=== PATIENT | male | born 1955 | race African-American/Black ===

== ENCOUNTER 2018-06-25 10:49 | Inpatient (IN) | payer OTHER ==
[2018-06-25 12:03] VITALS: BMI 22.4
--- NOTE | 2018-06-25 16:49 | HP ---
"COWS - Scale Resting Pulse: 2= ID [id number] Sweatin=Flushed/Facial Moisture Restless Observation: 1= Difficult to Sit Still Pupil Size: 1= Pupils >than Normal (Pupils at 3 mm) Bone or Joint Aches: 0= None Runny Nose/ Eye Tearin= Runny Nose/Eyes GI Upset > 30mins: 0= None Tremor Observation: 2= Slight Tremor Visible Yawning Observation: 0= None Anxiety or Irritability: 2=Irritable/Anxious Goose Flesh Skin: 0=Smooth Skin COWS Score: 12 CIWA Score - CIWA Score Nausea/Vomitin-No Nausea/No Vomiting Muscle Tremors: 4-Moderate,w/Arms Extend Anxiety: 1-Mildly Anxious Agitation: 4-Moderately Restless Paroxysmal Sweats: 1-Minimal Palms Moist (Facial perspiration) Orientation: 0-Oriented Tacttile Disturbances: 0-None Auditory Disturbances: 0-None Visual Disturbances: 0-None Headache: 0-None Present CIWA-Ar Total Score: 10 Admission ROS S - HPI Chief Complaint: States here for alcohol and heroin withdrawal. Allergies/Adverse Reactions: Allergies Allergy/AdvReac Type Severity Reaction Status Date / Time No Known Allergies Allergy Verified 06/25/18 20:17 History of Present Illness: Alcohol use since age 18. Heavy use since for past 30 years. Cocaine use since age 28. States now only take 1-2x/week. Heroin use started at age 61. Stopped heroin use 4 days ago. Denies hx seizures or blackouts. Longest length of sobriety when not in treatment is 2 days. Hx: Having SOB and using an asthma pump, DM, Elevated cholesterol, eye problems - taking eye drops, difficulty w/ balance r/t increased alcohol intake. ABBIE 0.030 Search Terms: Holger Keys, 1955 Search Date: 06/25/2018 06:13:12 PM The Drug Utilization Report below displays all of the controlled substance prescriptions, if any, that your patient has filled in the last twelve months. The information displayed on this report is compiled from pharmacy submissions to the Department, and accurately reflects the information as submitted by the pharmacies. This report was requested by: Rashida Lopez | Reference #: [id number] There are no results for the search terms that you entered. Exam Limitations: No Limitations - Ebola screening Have you traveled outside of the country in the last 21 days: No Have you had contact with anyone from an Ebola affected area: No Have you been sick,other than usual withdrawal symptoms: No Do you have a fever: No - Review of Systems Constitutional: Changes in sleep (Difficulty staying asleep) EENT: reports: Blurred Vision (Need glasses.), Hearing Loss (Hard of hearing. Has hearing aids but has lost them.), Other (Increased in pressure back of (L) eye and started on eye drops.) Respiratory: reports: Shortness of Breath (Seen by 1 week ago by PCP, Kishan Smyth MD, and started on albuterol inhalers) Cardiac: reports: No Symptoms Reported, Other (Denies all cardiac hx or symptoms. Denies HTN) GI: reports: No Symptoms Reported : reports: No Symptoms Reported Musculoskeletal: reports: No Symptoms Reported Integumentary: reports: No Symptoms Reported Neuro: reports: Paresthesia (Numbness and tingling in fingers for for approx 4 years.), Tremors Endocrine: reports: Increased Thirst Hematology: reports: No Symptoms Reported Psychiatric: reports: Judgement Intact, Agitated, Anxious, Depressed (Denies thoughts of harming self or others.) Patient History - Patient Medical History Hx Anemia: No Hx Asthma: No Hx Chronic Obstructive Pulmonary Disease (COPD): No Hx Cancer: No Hx Cardiac Disorders: No Hx Congestive Heart Failure: No Hx Hypertension: No Hx Hypercholesterolemia: Yes Hx Pacemaker: No HX Cerebrovascular Accident: No Hx Seizures: No Hx Dementia: No Hx Diabetes: Yes (TypeII) Hx Gastrointestinal Disorders: No Hx Liver Disease: No Hx Genitourinary Disorders: No Hx Sexually Transmitted Disorders: No Hx Renal Disease (ESRD): No Hx Thyroid Disease: No Hx Human Immunodeficiency Virus (HIV): No Hx Hepatitis C: No Hx Depression: No Hx Suicide Attempt: No Hx Bipolar Disorder: No Hx Schizophrenia: No - Patient Surgical History Past Surgical History: No - PPD History Date: 05/20/18 - Smoking Cessation Smoking history: Current every day smoker Have you smoked in the past 12 months: Yes Aproximately how many cigarettes per day: 10 Hx Chewing Tobacco Use: No Initiated information on smoking cessation: Yes 'Breaking Loose' booklet given: 06/25/18 - Substance & Tx. History Hx Alcohol Use: Yes Hx Substance Use: Yes Substance Use Type: Alcohol, Cocaine, Heroin Hx Substance Use Treatment: Yes (detox) - Substances Abused Alcohol Route: Oral Frequency: Daily Amount used: 5/ 6CANS BEER Age of first use: 18 Date of Last Use: 06/25/18 Heroin Route: SNIFF Frequency: 3-6 times per week Amount used: 1 BAG Age of first use: 61 Date of Last Use: 06/21/18 (small amount) Cocaine Frequency: 1-2 times per week Amount used: 2 gms Age of first use: 28 Date of Last Use: 06/23/18 Admission Physical Exam [facility] - Vital Signs Vital Signs: Vital Signs - 24 hr 06/25/18 11:59 Temperature 98.2 F Pulse Rate 117 H Respiratory 19 Rate Blood Pressure 125/74 - Physical General Appearance: Yes: Appropriately Dressed, Mild Distress, Tremorous, Sweating, Anxious HEENTM: Yes: EOMI, Hearing grossly Normal, KELVIN (Pupils at 3 mm) Respiratory: Yes: Lungs Clear, Normal Breath Sounds Neck: Yes: No masses,lesions,Nodules, Supple Breast: Yes: Breast Exam Deferred Cardiology: Yes: Regular Rhythm, S1, S2, Tachycardia Abdominal: Yes: Non Tender, Flat, Soft, Increased Bowel Sounds Genitourinary: Yes: Within Normal Limits Back: Yes: Normal Inspection Extremities: Yes: Normal Capillary Refill, Normal Range of Motion (Some crepitus in knees.), Non-Tender, Tremors (of hands when arms outstretched) Neurological: Yes: band builder II-XII NML intact, Fully Oriented, Alert, Motor Strength 5/5, Normal Mood/Affect, Normal Response Integumentary: Yes: Normal Color, Dry, Warm Lymphatic: Yes: Within Normal Limits - Diagnostic (1) Alcohol dependence with withdrawal Current Visit: Yes Status: Acute Qualifiers: Complication of substance-induced condition: uncomplicated Qualified Code(s ): F10.230 - Alcohol dependence with withdrawal, uncomplicated (2) Cocaine dependence Current Visit: Yes Status: Chronic Qualifiers: Substance use status: uncomplicated Qualified Code(s): F14.20 - Cocaine dependence, uncomplicated (3) Nicotine dependence Current Visit: Yes Status: Chronic Qualifiers: Nicotine product type: cigarettes Substance use status: uncomplicated Qualified Code(s): F17.210 - Nicotine dependence, cigarettes, uncomplicated (4) Diabetes mellitus treated with oral medication Current Visit: Yes Status: Chronic (5) Hyperlipidemia Current Visit: Yes Status: Chronic Qualifiers: Hyperlipidemia type: unspecified Qualified Code(s): E78.5 - Hyperlipidemia , unspecified (6) Unspecified glaucoma Current Visit: Yes Status: Chronic Qualifiers: Glaucoma type: unspecified Laterality: unspecified laterality Qualified Code(s): H40.9 - Unspecified glaucoma (7) OMAHA (hard of hearing) Current Visit: Yes Status: Chronic Qualifiers: Hearing loss type: unspecified Laterality: unspecified laterality Qualified Code(s): H91.90 - Unspecified hearing loss, unspecified ear (8) Heroin use disorder, moderate, in early remission Current Visit: Yes Status: Acute Cleared for Admission S - Detox or Rehab [facility] Level of Care: Medically Managed Detox Regimen/Protocol: Librium [facility] Breath Alcohol Content Breath Alcohol Content: 0.030 Urine Drug Screen - Results Drug Screen Negative: No Urine Drug Screen Results: CANDE-Cocaine"
[2018-06-25] MEDS ORDERED: IBUPROFEN 400 MG TABLET (FP) PO PRN (17:24)
[2018-06-25] MEDS ORDERED: P-EPHED 60MG/TRIPROLIDI 2.5MG TABLET PO PRN (17:24)
[2018-06-25] MEDS ORDERED: MENTHOL/PHENOL 1 EACH UD MM PRN (17:24)
[2018-06-25] MEDS ORDERED: MAGNESIUM HYDROX 2400MG/30ML ORAL SUSPENSION 30 ML CUP PO PRN (17:24)
[2018-06-25] MEDS ORDERED: LOPERAMIDE HCL 2 MG CAPSULE PO PRN (17:24)
[2018-06-25] MEDS ORDERED: MAGNESIUM CITRATE 300 ML BOTTLE PO PRN (17:24)
[2018-06-25] MEDS ORDERED: guaiFENesin/D-METHORPHAN HB 10 ML UNIT-DOSE CUPS PO PRN (17:24)
[2018-06-25] MEDS ORDERED: NICOTINE POLACRILEX 2 MG GUM BC PRN (17:24)
[2018-06-25] MEDS ORDERED: ACETAMINOPHEN 325 MG TABLET (FP) PO PRN (17:24)
[2018-06-25] MEDS ORDERED: METHADONE HCL 10 MG TABLET PO ONE (18:30)
[2018-06-25] MEDS: THIAMINE HCL 100 MG TABLET (FP) PO SCH (21:46)
[2018-06-25] MEDS: ATORVASTATIN CA 20 MG TABLET (FP) PO SCH (21:46)
[2018-06-25] MEDS: MELATONIN 5 MG TABLETS PO PRN (21:47)
[2018-06-25] MEDS: TIMOLOL 0.5% OPHTHALMIC SOL 5 ML BOTTLE OU SCH (21:48)
[2018-06-25] MEDS: metFORMIN HCL 500 MG TABLET (FP) PO SCH (21:50)
[2018-06-25] MEDS: BRIMONIDINE TARTRATE 0.1% OPHTHALMIC 5 ML BOTTLE OU SCH (21:51)
[2018-06-25] MEDS: chlordiazePOXIDE HCL 25 MG CAPSULE PO SCH (22:32)
[2018-06-26] MEDS: chlordiazePOXIDE HCL 25 MG CAPSULE PO SCH ×4 (05:54→22:25)
[2018-06-26] MEDS: metFORMIN HCL 500 MG TABLET (FP) PO SCH ×2 (07:56→17:51)
[2018-06-26] MEDS ORDERED: PATIENT'S OWN MEDICATION (NON-FORMULARY) (Meloxicam [Mobic] 15 MG) PO SCH (10:00)
[2018-06-26] MEDS: BRIMONIDINE TARTRATE 0.1% OPHTHALMIC 5 ML BOTTLE OU SCH ×2 (10:14→23:05)
[2018-06-26] MEDS: NICOTINE 14 MG/24 HOURS TOPICAL PATCH TD SCH (10:15)
[2018-06-26] MEDS: TIMOLOL 0.5% OPHTHALMIC SOL 5 ML BOTTLE OU SCH ×2 (10:15→23:05)
[2018-06-26] MEDS: PRENATAL VITAMINS W/ FOLIC ACID TABLET (FP) PO SCH (10:15)
[2018-06-26] MEDS: ASPIRIN 81 MG CHEWABLE TABLETS PO SCH (10:15)
[2018-06-26] MEDS ORDERED: METHADONE HCL 10 MG TABLET (FOR DETOX USE ONLY) PO ONE (10:29)
[2018-06-26 10:52] LABS: HEMATOCRIT 35.9 % (35.4-49); HEMOGLOBIN 11.9 GM/dL (11.7-16.9); MCH 35.9 pg (25.7-33.7); MCHC 33.1 g/dl (32.0-35.9); MEAN CELL VOLUME 108.4 fl (80-96); MEAN PLT VOLUME 8.7 fl (7.5-11.1); PLATELET COUNT 202 K/MM3 (134-434); RBC 3.31 M/mm3 (4.00-5.60); RDW 14.5 % (11.9-15.9); WHITE BLOOD COUNT 4.8 K/mm3 (4.0-10.0)
[2018-06-26 10:58] LABS: URINE APPEARANCE SLCLOUDY; URINE BILIRUBIN NEGATIVE (<2.0 mg/dL); URINE GLUCOSE (UA) 1+ (NEGATIVE); URINE KETONE NEGATIVE (NEGATIVE); URINE LEUK ESTERASE NEGATIVE (NEGATIVE); URINE NITRITE NEGATIVE (NEGATIVE); URINE PROTEIN NEGATIVE (NEGATIVE); URINE UROBILINOGEN NEGATIVE mg/dL (0.2-1.0)
[2018-06-26 11:11] LABS: URINE COLOR YELLOW
[2018-06-26 11:19] LABS: ALBUMIN 2.7 g/dl (3.4-5.0); ALK PHOS 72 U/L (45-117); ANION GAP 11 MMOL/L (8-16); BILIRUBIN,TOTAL 0.9 mg/dL (0.2-1); BLOOD UREA NITROGEN 17 mg/dL (7-18); CALCIUM 8.7 mg/dL (8.5-10.1); CHLORIDE 107 mmol/L (98-107); CO2 23 mmol/L (21-32); GLUCOSE,RANDOM 236 mg/dL (74-106); POTASSIUM 4.1 mmol/L (3.5-5.1); SGOT/AST 57 U/L (15-37); SGPT/ALT 50 U/L (13-61); SODIUM 141 mmol/L (136-145); TOT PROT 5.8 g/dl (6.4-8.2)
--- NOTE | 2018-06-26 11:27 | CONSULT ---
[facility] Psychiatric Consult - Data Date of interview: 06/26/18 Admission source: [facility] Identifying data: Readmission to [facility] for this 62 y/o AA male self- referred for detoxification treatment (alcohol,cocaine).Admitted to [address] [place] [address].Patient is ,a father of five,undomiciled,unemployed (disabled) and evasive on the issue of source of income. Substance Abuse History: Patient refuses to discuss this domain.mr bragg is irritable and uncooperative.Current [facility] report is utilized as source of information : Smoking history: Current every day smoker. Have you smoked in the past 12 months: Yes. Aproximately how many cigarettes per day: 10. Hx Chewing Tobacco Use: No. Initiated information on smoking cessation: Yes. ' Breaking Loose' booklet given: 06/25/18. - Substance & Tx. History. Hx Alcohol Use: Yes. Hx Substance Use: Yes. Substance Use Type: Alcohol, Cocaine , Heroin. Hx Substance Use Treatment: Yes (detox). - Substances Abused. Alcohol. Route: Oral. Frequency: Daily. Amount used: 5/ 6CANS BEER. Age of first use: 18. Date of Last Use: 06/25/18. Heroin. Route: SNIFF. Frequency: 3-6 times per week. Amount used: 1 BAG. Age of first use: 61. Date of Last Use: 06/21/18 (small amount). Cocaine. Frequency: 1-2 times per week. Amount used: 2 gms. Age of first use: 28. Date of Last Use: Medical History: Information is taken from chart : diabetes mellitus,bronchial asthma,hearing impediment,glaucoma,dyslipidemia and unsteady gait (patient is requesting cane for ambulation). Psychiatric History: Patient denies. Physical/Sexual Abuse/Trauma History: No information. Additional Comment: Urine Drug Screen Results: CANDE-Cocaine.Noted. Mental Status Exam - Mental Status Exam Alert and Oriented to: Time, Place, Person Cognitive Function: Grossly Intact Patient Appearance: Disheveled Mood: Angry, Hostile, Anxious, Irritable Affect: Mood Congruent Patient Behavior: Fatigued, Uncooperative Speech Pattern: Clear Voice Loudness: Normal Thought Process: Goal Oriented Thought Disorder: Not Present Hallucinations: Denies Suicidal Ideation: Denies Homicidal Ideation: Denies Insight/Judgement: Poor Sleep: Well Appetite: Good Gait/Station: Other (ambulates independently ; unsteady gait due to orthopedic issues ; cane requested) Psychiatric Findings - Problem List ([place] 1, 2,3) (1) Alcohol dependence with withdrawal Current Visit: Yes Status: Acute Qualifiers: Complication of substance-induced condition: uncomplicated Qualified Code(s ): F10.230 - Alcohol dependence with withdrawal, uncomplicated (2) Opioid dependence with withdrawal Current Visit: Yes Status: Acute (3) Cocaine dependence Current Visit: Yes Status: Acute Qualifiers: Substance use status: uncomplicated Qualified Code(s): F14.20 - Cocaine dependence, uncomplicated (4) Nicotine dependence Current Visit: Yes Status: Acute Qualifiers: Nicotine product type: cigarettes Substance use status: uncomplicated Qualified Code(s): F17.210 - Nicotine dependence, cigarettes, uncomplicated (5) Substance induced mood disorder Current Visit: Yes Status: Suspected - Initial Treatment Plan Initial Treatment Plan: Psychoeducation.Sleep hygiene.Detoxification in progress.Cane requested.Discussed with nursing staff.Support.Observation.
[2018-06-26] MEDS: MAG HYDROX/AL HYDROX/SIMETH 30 ML UNIT-DOSE CUP PO PRN ×2 (11:41→22:44)
--- NOTE | 2018-06-26 11:53 | PN ---
S CIWA - CIWA Score Nausea/Vomitin-No Nausea/No Vomiting Muscle Tremors: 3 Anxiety: 4-Mod. Anxious/Guarded Agitation: 4-Moderately Restless Paroxysmal Sweats: 1-Minimal Palms Moist Orientation: 0-Oriented Tacttile Disturbances: 0-None Auditory Disturbances: 0-None Visual Disturbances: 0-None Headache: 0-None Present CIWA-Ar Total Score: 12 BHS Progress Note (SOAP) Subjective: ANXIETY, SWEATS/CHILLS,INTERMITTENT SLEEP. Objective: 06/26/18 11:55 Vital Signs 06/26/18 06/26/18 06:08 09:21 Temperature 98.7 F 96.3 F L Pulse Rate 71 99 H Respiratory 18 18 Rate Blood Pressure 146/89 138/84 Laboratory Tests 06/25/18 06/25/18 06/26/18 17:50 21:22 05:53 WBC RBC Hgb Hct MCV MCH MCHC RDW Plt Count MPV Sodium Potassium Chloride Carbon Dioxide Anion Gap BUN Creatinine Creat Clearance w eGFR POC Glucometer 84 194 120 Random Glucose Calcium Total Bilirubin AST ALT Alkaline Phosphatase Total Protein Albumin Urine Color Urine Appearance Urine pH Ur Specific [place] Urine Protein Urine Glucose (UA) Urine Ketones Urine Blood Urine Nitrite Urine Bilirubin Urine Urobilinogen Ur Leukocyte Esterase 06/26/18 06/26/18 06/26/18 07:50 07:50 08:50 WBC 4.8 RBC 3.31 L Hgb 11.9 Hct 35.9 MCV 108.4 H MCH 35.9 H MCHC 33.1 RDW 14.5 D Plt Count 202 MPV 8.7 Sodium 141 Potassium 4.1 Chloride 107 Carbon Dioxide 23 Anion Gap 11 BUN 17 Creatinine 1.0 Creat Clearance w eGFR > 60 POC Glucometer Random Glucose 236 H Calcium 8.7 Total Bilirubin 0.9 AST 57 H ALT 50 Alkaline Phosphatase 72 Total Protein 5.8 L Albumin 2.7 L Urine Color Yellow Urine Appearance Slcloudy Urine pH 5.0 D Ur Specific [place] 1.013 Urine Protein Negative Urine Glucose (UA) 1+ H Urine Ketones Negative Urine Blood Negative Urine Nitrite Negative Urine Bilirubin Negative Urine Urobilinogen Negative Ur Leukocyte Esterase Negative 06/26/18 10:57 WBC RBC Hgb Hct MCV MCH MCHC RDW Plt Count MPV Sodium Potassium Chloride Carbon Dioxide Anion Gap BUN Creatinine Creat Clearance w eGFR POC Glucometer 154 Random Glucose Calcium Total Bilirubin AST ALT Alkaline Phosphatase Total Protein Albumin Urine Color Urine Appearance Urine pH Ur Specific [place] Urine Protein Urine Glucose (UA) Urine Ketones Urine Blood Urine Nitrite Urine Bilirubin Urine Urobilinogen Ur Leukocyte Esterase Assessment: 06/26/18 11:55 WITHDRAWAL SX Plan: CONTINUE DETOX
[2018-06-26] MEDS ORDERED: FLU VACCINE QUAD 60 MCG/0.5 ML (MDV 18-19) IM ONE (12:00)
--- NOTE | 2018-06-26 15:41 | EKG ---
Test Reason : Blood Pressure : / mmHG Vent. Rate : 086 BPM Atrial Rate : 086 BPM P-R Int : 126 ms QRS Dur : 072 ms QT Int : 362 ms P-R-T Axes : 075 051 062 degrees QTc Int : 433 ms SINUS RHYTHM WITH PREMATURE ATRIAL COMPLEXES OTHERWISE NORMAL ECG WHEN COMPARED WITH ECG OF 18-MAY-2018 20:14, NO SIGNIFICANT CHANGE WAS FOUND Confirmed by MD Wojciech, Holger ([id number]) on 06/26/2018 3:41:21 PM Referred By: Confirmed By:Holger Jeffrey MD
[2018-06-26] MEDS: ATORVASTATIN CA 20 MG TABLET (FP) PO SCH (22:25)
[2018-06-26] MEDS: THIAMINE HCL 100 MG TABLET (FP) PO SCH (22:25)
[2018-06-26] MEDS: MELATONIN 5 MG TABLETS PO PRN (22:26)
[2018-06-27] MEDS: chlordiazePOXIDE HCL 25 MG CAPSULE PO SCH ×3 (05:34→17:05)
[2018-06-27] MEDS: metFORMIN HCL 500 MG TABLET (FP) PO SCH ×2 (07:03→17:06)
[2018-06-27] MEDS ORDERED: ALBUTEROL SO4 2.5/IPRATROPIUM 0.5 INH SOL 3 ML VIAL.NEB. NEB PRN (08:09)
[2018-06-27] MEDS ORDERED: METHADONE HCL 10 MG TABLET PO ONE (10:00)
[2018-06-27] MEDS: NICOTINE 14 MG/24 HOURS TOPICAL PATCH TD SCH (10:53)
[2018-06-27] MEDS: TIMOLOL 0.5% OPHTHALMIC SOL 5 ML BOTTLE OU SCH ×2 (10:53→21:51)
[2018-06-27] MEDS: PRENATAL VITAMINS W/ FOLIC ACID TABLET (FP) PO SCH (10:53)
[2018-06-27] MEDS: ASPIRIN 81 MG CHEWABLE TABLETS PO SCH (10:53)
[2018-06-27] MEDS: BRIMONIDINE TARTRATE 0.1% OPHTHALMIC 5 ML BOTTLE OU SCH ×2 (10:54→21:51)
[2018-06-27] MEDS: ALBUTEROL SO4 8 GM HFA INHALER IH PRN ×2 (10:57→20:09)
[2018-06-27] MEDS: hydrOXYzine PAMOATE 25 MG CAPSULE (FP) PO PRN ×2 (11:36→17:06)
[2018-06-27] MEDS: MAG HYDROX/AL HYDROX/SIMETH 30 ML UNIT-DOSE CUP PO PRN (11:50)
--- NOTE | 2018-06-27 16:34 | PN ---
S CIWA - CIWA Score Nausea/Vomitin Muscle Tremors: 3 Anxiety: 3 Agitation: 3 Paroxysmal Sweats: 3 Orientation: 0-Oriented Tacttile Disturbances: 1-Very Mild Itch/Numbness Auditory Disturbances: 0-None Visual Disturbances: 0-None Headache: 1-Very Mild CIWA-Ar Total Score: 16 S Progress Note (SOAP) Subjective: Interrupted sleep Objective: 06/27/18 16:32 Last Vital Signs Temp Pulse Resp BP Pulse Ox 97.1 F L 94 H 20 156/84 06/27/18 13:43 06/27/18 13:43 06/27/18 13:43 06/27/18 13:43 Laboratory Tests 06/25/18 06/25/18 06/26/18 17:50 21:22 05:53 WBC RBC Hgb Hct MCV MCH MCHC RDW Plt Count MPV Sodium Potassium Chloride Carbon Dioxide Anion Gap BUN Creatinine Creat Clearance w eGFR POC Glucometer 84 194 120 Random Glucose Calcium Total Bilirubin AST ALT Alkaline Phosphatase Total Protein Albumin Urine Color Urine Appearance Urine pH Ur Specific [place] Urine Protein Urine Glucose (UA) Urine Ketones Urine Blood Urine Nitrite Urine Bilirubin Urine Urobilinogen Ur Leukocyte Esterase RPR Titer HIV 1&2 Antibody Screen HIV P24 Antigen 06/26/18 06/26/18 06/26/18 07:50 07:50 07:50 WBC 4.8 RBC 3.31 L Hgb 11.9 Hct 35.9 MCV 108.4 H MCH 35.9 H MCHC 33.1 RDW 14.5 D Plt Count 202 MPV 8.7 Sodium 141 Potassium 4.1 Chloride 107 Carbon Dioxide 23 Anion Gap 11 BUN 17 Creatinine 1.0 Creat Clearance w eGFR > 60 POC Glucometer Random Glucose 236 H Calcium 8.7 Total Bilirubin 0.9 AST 57 H ALT 50 Alkaline Phosphatase 72 Total Protein 5.8 L Albumin 2.7 L Urine Color Urine Appearance Urine pH Ur Specific [place] Urine Protein Urine Glucose (UA) Urine Ketones Urine Blood Urine Nitrite Urine Bilirubin Urine Urobilinogen Ur Leukocyte Esterase RPR Titer Nonreactive HIV 1&2 Antibody Screen HIV P24 Antigen 06/26/18 06/26/18 06/26/18 08:50 10:57 16:22 WBC RBC Hgb Hct MCV MCH MCHC RDW Plt Count MPV Sodium Potassium Chloride Carbon Dioxide Anion Gap BUN Creatinine Creat Clearance w eGFR POC Glucometer 154 181 Random Glucose Calcium Total Bilirubin AST ALT Alkaline Phosphatase Total Protein Albumin Urine Color Yellow Urine Appearance Slcloudy Urine pH 5.0 D Ur Specific [place] 1.013 Urine Protein Negative Urine Glucose (UA) 1+ H Urine Ketones Negative Urine Blood Negative Urine Nitrite Negative Urine Bilirubin Negative Urine Urobilinogen Negative Ur Leukocyte Esterase Negative RPR Titer HIV 1&2 Antibody Screen HIV P24 Antigen 06/26/18 06/27/18 06/27/18 21:05 05:32 06:00 WBC RBC Hgb Hct MCV MCH MCHC RDW Plt Count MPV Sodium Potassium Chloride Carbon Dioxide Anion Gap BUN Creatinine Creat Clearance w eGFR POC Glucometer 181 114 Random Glucose Calcium Total Bilirubin AST ALT Alkaline Phosphatase Total Protein Albumin Urine Color Urine Appearance Urine pH Ur Specific [place] Urine Protein Urine Glucose (UA) Urine Ketones Urine Blood Urine Nitrite Urine Bilirubin Urine Urobilinogen Ur Leukocyte Esterase RPR Titer HIV 1&2 Antibody Screen Negative HIV P24 Antigen Negative Labs reviewed: elevated glucose Assessment: 06/27/18 16:32 Withdrawal symptoms Noted with hyperglycemia r/t DMT2 Plan: Continue detox DMT2 with hyperglycemia: continue present regimen, continue to monitor, Encouraged PO water hydration
[2018-06-27] MEDS: chlordiazePOXIDE HCL 25 MG CAPSULE PO PRN (20:58)
[2018-06-27] MEDS: ATORVASTATIN CA 20 MG TABLET (FP) PO SCH (21:47)
[2018-06-27] MEDS: THIAMINE HCL 100 MG TABLET (FP) PO SCH (21:47)
[2018-06-27] MEDS: MELATONIN 5 MG TABLETS PO PRN (21:48)
[2018-06-27] MEDS: chlordiazePOXIDE 5 MG CAPSULE PO SCH (22:00)
[2018-06-28] MEDS: chlordiazePOXIDE 5 MG CAPSULE PO SCH ×3 (06:35→17:49)
[2018-06-28] MEDS: metFORMIN HCL 500 MG TABLET (FP) PO SCH ×2 (06:36→17:49)
[2018-06-28] MEDS ORDERED: METHADONE HCL 10 MG TABLET PO ONE (10:00)
[2018-06-28] MEDS: PRENATAL VITAMINS W/ FOLIC ACID TABLET (FP) PO SCH (10:31)
[2018-06-28] MEDS: BRIMONIDINE TARTRATE 0.1% OPHTHALMIC 5 ML BOTTLE OU SCH ×2 (10:31→22:14)
[2018-06-28] MEDS: TIMOLOL 0.5% OPHTHALMIC SOL 5 ML BOTTLE OU SCH ×2 (10:31→22:14)
[2018-06-28] MEDS: ASPIRIN 81 MG CHEWABLE TABLETS PO SCH (10:31)
[2018-06-28] MEDS: NICOTINE 14 MG/24 HOURS TOPICAL PATCH TD SCH (10:31)
--- NOTE | 2018-06-28 11:57 | PN ---
Psychiatric Progress Note Vital Signs: Vital Signs Period Temp Pulse Resp BP Sys/Ba Pulse Ox Last 24 Hr 96.5 F-97.6 F 80-98 16-20 119-156/70-84 Date of Session: 06/28/18 Chief Complaint:: " I have a few questions about my discharge." Current Medications: Active Medications Generic Name Dose Route Start Last Admin Trade Name Freq PRN Reason Stop Dose Admin Acetaminophen 650 mg 06/25/18 17:24 06/26/18 17:51 Tylenol - PO 650 mg Q4H PRN Administration FEVER Al Hydroxide/Mg Hydroxide 30 ml 06/25/18 17:24 06/27/18 11:50 Mylanta Oral Suspension - PO 30 ml Q6H PRN Administration DYSPEPSIA Albuterol Sulfate 2 puff 06/27/18 08:48 06/27/18 20:09 Ventolin Hfa Inhaler - IH 2 puff Q4H PRN Administration SHORT OF BREATH/WHEEZING Albuterol/Ipratropium 1 amp 06/27/18 08:09 06/27/18 08:37 Duoneb - NEB 1 amp Q6H PRN Administration SHORTNESS OF BREATH Aspirin 81 mg 06/26/18 10:00 06/28/18 10:31 Asa - PO 81 mg DAILY REGINALD Administration Atorvastatin Calcium 20 mg 06/25/18 22:00 06/27/18 21:47 Lipitor - PO 20 mg HS REGINALD Administration Brimonidine Tartrate 1 drop 06/25/18 22:00 06/28/18 10:31 Alphagan P 0.1% - OU 1 drop BID REGINALD Administration Chlordiazepoxide HCl 15 mg 06/27/18 23:00 06/28/18 10:31 Librium - PO 06/28/18 17:01 15 mg U1H-GIM REGINALD Administration Chlordiazepoxide HCl 25 mg 06/25/18 17:24 06/27/18 20:58 Librium - PO 06/28/18 17:23 25 mg Q4H PRN Administration WITHDRAWAL(CONT SUBST) Chlordiazepoxide HCl 10 mg 06/28/18 23:00 Librium - PO 06/29/18 17:01 [id number] REGINALD Ergocalciferol 50,000 unit 06/29/18 10:00 Drisdol - PO Tu@1000 REGINALD Eucalyptus/Menthol/Phenol/Sorbitol 1 each 06/25/18 17:24 Cepastat Lozenge - MM Q4H PRN SORE THROAT Guaifenesin 10 ml 06/25/18 17:24 Robitussin Dm - PO Q6H PRN COUGH Hydroxyzine Pamoate 25 mg 06/25/18 21:31 06/27/18 17:06 Vistaril - PO 25 mg Q4H PRN Administration FOR ITCHING Ibuprofen 400 mg 06/25/18 17:24 Motrin - PO Q6H PRN PAIN LEVEL 4-6 Loperamide HCl 4 mg 06/25/18 17:24 Imodium - PO Q6H PRN DIARRHEA Magnesium Citrate 300 ml 06/25/18 17:24 Citroma - PO Q48H PRN CONSTIPATION Magnesium Hydroxide 30 ml 06/25/18 17:24 Milk Of Magnesia - PO DAILY PRN CONSTIPATION Melatonin 5 mg 06/25/18 22:00 06/27/18 21:48 Melatonin PO 5 mg HS PRN Administration INSOMNIA Metformin HCl 1,000 mg 06/25/18 18:30 06/28/18 06:36 Glucophage - PO 1,000 mg BIDAC REGINALD Administration Nicotine 14 mg 06/26/18 10:00 06/28/18 10:31 Nicoderm Patch - TD 14 mg DAILY REGINALD Administration Nicotine Polacrilex 2 mg 06/25/18 17:24 Nicorette Gum - BC Q2H PRN NICOTINE REPLACEMENT RX Multivit/Folic Acid/Iron 1 tab 06/26/18 10:00 06/28/18 10:31 Vitamins (Sjr) - PO 1 tab DAILY REGINALD Administration Pseudoephedrine/Triprolidine 1 combo 06/25/18 17:24 Actifed - PO TID PRN NASAL CONGESTION Thiamine HCl 100 mg 06/25/18 22:00 06/27/18 21:47 Vitamin B1 - PO 100 mg HS REGINALD Administration Timolol Maleate 1 drop 06/25/18 22:00 06/28/18 10:31 Timoptic 0.5% OU 1 drop BID REGINALD Administration Psychiatric Treatment Plan - Problem List (1) Alcohol dependence with withdrawal Current Visit: Yes Qualifiers: Complication of substance-induced condition: uncomplicated Qualified Code(s ): F10.230 - Alcohol dependence with withdrawal, uncomplicated (2) Opioid dependence with withdrawal Current Visit: Yes (3) Cocaine dependence Current Visit: Yes Qualifiers: Substance use status: uncomplicated Qualified Code(s): F14.20 - Cocaine dependence, uncomplicated (4) Nicotine dependence Current Visit: Yes Qualifiers: Nicotine product type: cigarettes Substance use status: in withdrawal Qualified Code(s): F17.213 - Nicotine dependence, cigarettes, with withdrawal (5) Substance induced mood disorder Current Visit: Yes
--- NOTE | 2018-06-28 12:34 | PN ---
S Progress Note (SOAP) Subjective: Interrupted sleep Objective: 06/28/18 12:32 Last Vital Signs Temp Pulse Resp BP Pulse Ox 97.3 F L 96 H 18 131/76 06/28/18 10:01 06/28/18 10:01 06/28/18 10:01 06/28/18 10:01 Laboratory Tests 06/25/18 06/25/18 06/26/18 17:50 21:22 05:53 WBC RBC Hgb Hct MCV MCH MCHC RDW Plt Count MPV Sodium Potassium Chloride Carbon Dioxide Anion Gap BUN Creatinine Creat Clearance w eGFR POC Glucometer 84 194 120 Random Glucose Calcium Total Bilirubin AST ALT Alkaline Phosphatase Total Protein Albumin Urine Color Urine Appearance Urine pH Ur Specific [place] Urine Protein Urine Glucose (UA) Urine Ketones Urine Blood Urine Nitrite Urine Bilirubin Urine Urobilinogen Ur Leukocyte Esterase RPR Titer HIV 1&2 Antibody Screen HIV P24 Antigen 06/26/18 06/26/18 06/26/18 07:50 07:50 07:50 WBC 4.8 RBC 3.31 L Hgb 11.9 Hct 35.9 MCV 108.4 H MCH 35.9 H MCHC 33.1 RDW 14.5 D Plt Count 202 MPV 8.7 Sodium 141 Potassium 4.1 Chloride 107 Carbon Dioxide 23 Anion Gap 11 BUN 17 Creatinine 1.0 Creat Clearance w eGFR > 60 POC Glucometer Random Glucose 236 H Calcium 8.7 Total Bilirubin 0.9 AST 57 H ALT 50 Alkaline Phosphatase 72 Total Protein 5.8 L Albumin 2.7 L Urine Color Urine Appearance Urine pH Ur Specific [place] Urine Protein Urine Glucose (UA) Urine Ketones Urine Blood Urine Nitrite Urine Bilirubin Urine Urobilinogen Ur Leukocyte Esterase RPR Titer Nonreactive HIV 1&2 Antibody Screen HIV P24 Antigen 06/26/18 06/26/18 06/26/18 08:50 10:57 16:22 WBC RBC Hgb Hct MCV MCH MCHC RDW Plt Count MPV Sodium Potassium Chloride Carbon Dioxide Anion Gap BUN Creatinine Creat Clearance w eGFR POC Glucometer 154 181 Random Glucose Calcium Total Bilirubin AST ALT Alkaline Phosphatase Total Protein Albumin Urine Color Yellow Urine Appearance Slcloudy Urine pH 5.0 D Ur Specific [place] 1.013 Urine Protein Negative Urine Glucose (UA) 1+ H Urine Ketones Negative Urine Blood Negative Urine Nitrite Negative Urine Bilirubin Negative Urine Urobilinogen Negative Ur Leukocyte Esterase Negative RPR Titer HIV 1&2 Antibody Screen HIV P24 Antigen 06/26/18 06/27/18 06/27/18 21:05 05:32 06:00 WBC RBC Hgb Hct MCV MCH MCHC RDW Plt Count MPV Sodium Potassium Chloride Carbon Dioxide Anion Gap BUN Creatinine Creat Clearance w eGFR POC Glucometer 181 114 Random Glucose Calcium Total Bilirubin AST ALT Alkaline Phosphatase Total Protein Albumin Urine Color Urine Appearance Urine pH Ur Specific [place] Urine Protein Urine Glucose (UA) Urine Ketones Urine Blood Urine Nitrite Urine Bilirubin Urine Urobilinogen Ur Leukocyte Esterase RPR Titer HIV 1&2 Antibody Screen Negative HIV P24 Antigen Negative 06/27/18 06/27/18 06/28/18 16:33 21:03 06:36 WBC RBC Hgb Hct MCV MCH MCHC RDW Plt Count MPV Sodium Potassium Chloride Carbon Dioxide Anion Gap BUN Creatinine Creat Clearance w eGFR POC Glucometer 135 212 164 Random Glucose Calcium Total Bilirubin AST ALT Alkaline Phosphatase Total Protein Albumin Urine Color Urine Appearance Urine pH Ur Specific [place] Urine Protein Urine Glucose (UA) Urine Ketones Urine Blood Urine Nitrite Urine Bilirubin Urine Urobilinogen Ur Leukocyte Esterase RPR Titer HIV 1&2 Antibody Screen HIV P24 Antigen Labs reviewed Assessment: 06/28/18 12:32 Withdrawal symptoms Plan: Continue detox Encouraged PO water hydration
[2018-06-28] MEDS: MAG HYDROX/AL HYDROX/SIMETH 30 ML UNIT-DOSE CUP PO PRN (12:35)
[2018-06-28] MEDS: chlordiazePOXIDE HCL 25 MG CAPSULE PO PRN (12:54)
[2018-06-28] MEDS: hydrOXYzine PAMOATE 25 MG CAPSULE (FP) PO PRN (14:17)
[2018-06-28] MEDS: ALBUTEROL SO4 8 GM HFA INHALER IH PRN (15:35)
[2018-06-28] MEDS: chlordiazePOXIDE HCL 10 MG CAPSULE PO SCH (22:13)
[2018-06-28] MEDS: ATORVASTATIN CA 20 MG TABLET (FP) PO SCH (22:13)
[2018-06-28] MEDS: THIAMINE HCL 100 MG TABLET (FP) PO SCH (22:13)
[2018-06-28] MEDS: MELATONIN 5 MG TABLETS PO PRN (22:15)
[2018-06-29] MEDS: chlordiazePOXIDE HCL 10 MG CAPSULE PO SCH (05:51)
[2018-06-29] MEDS: ALBUTEROL SO4 8 GM HFA INHALER IH PRN (06:38)
[2018-06-29] MEDS: metFORMIN HCL 500 MG TABLET (FP) PO SCH (06:38)
[2018-06-29 06:49] VITALS: BP 138/82; PULSE 91; TEMP 96.6
[2018-06-29] MEDS: PRENATAL VITAMINS W/ FOLIC ACID TABLET (FP) PO SCH (09:16)
[2018-06-29] MEDS: NICOTINE 14 MG/24 HOURS TOPICAL PATCH TD SCH (09:16)
[2018-06-29] MEDS: ASPIRIN 81 MG CHEWABLE TABLETS PO SCH (09:16)
[2018-06-29] MEDS ORDERED: ERGOCALCIFEROL (VITAMIN D2) 50,000 UNIT CAPSULE (FP) PO SCH (10:00)
--- NOTE | 2018-06-29 14:40 | DS ---
[facility] Detox Discharge Summary Admission Date: 06/25/18 Discharge Date: 06/29/18 - History Present History: Alcohol Dependence, Cocaine Dependence Pertinent Past History: Withdrawal symptoms Laboratory Tests 06/25/18 06/25/18 06/26/18 17:50 21:22 05:53 WBC RBC Hgb Hct MCV MCH MCHC RDW Plt Count MPV Sodium Potassium Chloride Carbon Dioxide Anion Gap BUN Creatinine Creat Clearance w eGFR POC Glucometer 84 194 120 Random Glucose Calcium Total Bilirubin AST ALT Alkaline Phosphatase Total Protein Albumin Urine Color Urine Appearance Urine pH Ur Specific [place] Urine Protein Urine Glucose (UA) Urine Ketones Urine Blood Urine Nitrite Urine Bilirubin Urine Urobilinogen Ur Leukocyte Esterase RPR Titer HIV 1&2 Antibody Screen HIV P24 Antigen 06/26/18 06/26/18 06/26/18 07:50 07:50 07:50 WBC 4.8 RBC 3.31 L Hgb 11.9 Hct 35.9 MCV 108.4 H MCH 35.9 H MCHC 33.1 RDW 14.5 D Plt Count 202 MPV 8.7 Sodium 141 Potassium 4.1 Chloride 107 Carbon Dioxide 23 Anion Gap 11 BUN 17 Creatinine 1.0 Creat Clearance w eGFR > 60 POC Glucometer Random Glucose 236 H Calcium 8.7 Total Bilirubin 0.9 AST 57 H ALT 50 Alkaline Phosphatase 72 Total Protein 5.8 L Albumin 2.7 L Urine Color Urine Appearance Urine pH Ur Specific [place] Urine Protein Urine Glucose (UA) Urine Ketones Urine Blood Urine Nitrite Urine Bilirubin Urine Urobilinogen Ur Leukocyte Esterase RPR Titer Nonreactive HIV 1&2 Antibody Screen HIV P24 Antigen 06/26/18 06/26/18 06/26/18 08:50 10:57 16:22 WBC RBC Hgb Hct MCV MCH MCHC RDW Plt Count MPV Sodium Potassium Chloride Carbon Dioxide Anion Gap BUN Creatinine Creat Clearance w eGFR POC Glucometer 154 181 Random Glucose Calcium Total Bilirubin AST ALT Alkaline Phosphatase Total Protein Albumin Urine Color Yellow Urine Appearance Slcloudy Urine pH 5.0 D Ur Specific [place] 1.013 Urine Protein Negative Urine Glucose (UA) 1+ H Urine Ketones Negative Urine Blood Negative Urine Nitrite Negative Urine Bilirubin Negative Urine Urobilinogen Negative Ur Leukocyte Esterase Negative RPR Titer HIV 1&2 Antibody Screen HIV P24 Antigen 06/26/18 06/27/18 06/27/18 21:05 05:32 06:00 WBC RBC Hgb Hct MCV MCH MCHC RDW Plt Count MPV Sodium Potassium Chloride Carbon Dioxide Anion Gap BUN Creatinine Creat Clearance w eGFR POC Glucometer 181 114 Random Glucose Calcium Total Bilirubin AST ALT Alkaline Phosphatase Total Protein Albumin Urine Color Urine Appearance Urine pH Ur Specific [place] Urine Protein Urine Glucose (UA) Urine Ketones Urine Blood Urine Nitrite Urine Bilirubin Urine Urobilinogen Ur Leukocyte Esterase RPR Titer HIV 1&2 Antibody Screen Negative HIV P24 Antigen Negative 06/27/18 06/27/18 06/28/18 16:33 21:03 06:36 WBC RBC Hgb Hct MCV MCH MCHC RDW Plt Count MPV Sodium Potassium Chloride Carbon Dioxide Anion Gap BUN Creatinine Creat Clearance w eGFR POC Glucometer 135 212 164 Random Glucose Calcium Total Bilirubin AST ALT Alkaline Phosphatase Total Protein Albumin Urine Color Urine Appearance Urine pH Ur Specific [place] Urine Protein Urine Glucose (UA) Urine Ketones Urine Blood Urine Nitrite Urine Bilirubin Urine Urobilinogen Ur Leukocyte Esterase RPR Titer HIV 1&2 Antibody Screen HIV P24 Antigen 06/28/18 06/29/18 16:26 05:53 WBC RBC Hgb Hct MCV MCH MCHC RDW Plt Count MPV Sodium Potassium Chloride Carbon Dioxide Anion Gap BUN Creatinine Creat Clearance w eGFR POC Glucometer 196 130 Random Glucose Calcium Total Bilirubin AST ALT Alkaline Phosphatase Total Protein Albumin Urine Color Urine Appearance Urine pH Ur Specific [place] Urine Protein Urine Glucose (UA) Urine Ketones Urine Blood Urine Nitrite Urine Bilirubin Urine Urobilinogen Ur Leukocyte Esterase RPR Titer HIV 1&2 Antibody Screen HIV P24 Antigen Labs reviewed - Physical Exam Results Vital Signs: Vital Signs Temperature 96.6 F L 06/29/18 06:48 Pulse Rate 91 H 06/29/18 06:48 Respiratory Rate 18 06/29/18 06:48 Blood Pressure 138/82 06/29/18 06:48 O2 Sat by Pulse Oximetry (%) - Treatment Hospital Course: Detox Protocol Followed, Detoxed Safely, Responded well, Discharged Condition Good - Medication Discharge Medications: Ambulatory Orders Aspirin [ASA -] 81 mg PO DAILY 05/18/18 Brimonidine Tartrate [Alphagan P 0.1% -] 1 drop OU BID 05/18/18 Ergocalciferol [Vitamin D2] 50,000 unit PO WEEKLY 05/18/18 Meloxicam [Mobic] 15 mg PO DAILY 05/18/18 Metformin HCl [Glucophage] 1,000 mg PO BID 05/18/18 Simvastatin [Zocor -] 40 mg PO HS 05/18/18 Timolol Maleate 0.5% Gfs [Timoptic Xe 0.5%] 1 drop OU BID 05/18/18 - Diagnosis (1) Type 2 diabetes mellitus with hyperglycemia Status: Chronic (2) Alcohol dependence with uncomplicated withdrawal Status: Acute (3) Vitamin D deficiency Status: Acute (4) Cocaine dependence Status: Chronic Qualifiers: Substance use status: uncomplicated Qualified Code(s): F14.20 - Cocaine dependence, uncomplicated (5) Nicotine dependence Status: Chronic Qualifiers: Nicotine product type: cigarettes Substance use status: in withdrawal Qualified Code(s): F17.213 - Nicotine dependence, cigarettes, with withdrawal (6) [place] (hard of hearing) Status: Chronic Qualifiers: Hearing loss type: unspecified Laterality: unspecified laterality Qualified Code(s): H91.90 - Unspecified hearing loss, unspecified ear (7) Hyperlipidemia Status: Chronic Qualifiers: Hyperlipidemia type: unspecified Qualified Code(s): E78.5 - Hyperlipidemia , unspecified (8) Unspecified glaucoma Status: Chronic Qualifiers: Glaucoma type: unspecified Laterality: unspecified laterality Qualified Code(s): H40.9 - Unspecified glaucoma - AMA Did Patient Leave Against Medical Advice: No (F/U with your PCP within 1-2 weeks )
== END 2018-06-29 10:55 | disposition home or self-care (01) | DRG 773 ==
LOC: YASAS 10:49 → Y3N 18:11
PROC: HZ2ZZZZ Detoxification Services for Substance Abuse Treatment (ICD-10-PCS; principal; 2018-06-25)
DX: F11.23 Opioid dependence with withdrawal (principal); F10.230 Alcohol dependence with withdrawal, uncomplicated; F14.20 Cocaine dependence, uncomplicated; F17.213 Nicotine dependence, cigarettes, with withdrawal; F19.24 Other psychoactive substance dependence with psychoactive substance-induced mood disorder; I10 Essential (primary) hypertension; E78.5 Hyperlipidemia, unspecified; E55.9 Vitamin D deficiency, unspecified; E11.65 Type 2 diabetes mellitus with hyperglycemia; Z79.84 Long term (current) use of oral hypoglycemic drugs; H40.9 Unspecified glaucoma; H91.90 Unspecified hearing loss, unspecified ear; R26.81 Unsteadiness on feet
CPT/HCPCS: 36415; 80053; 81003; 82962; 85027; 86593; 87389; 90688; 93005; 93010; 94640; G0008

== ENCOUNTER 2018-07-31 14:27 | Inpatient (IN) | payer OTHER ==
[2018-07-31 14:49] VITALS: BMI 24.0
--- NOTE | 2018-07-31 14:54 | HP ---
CIWA Score - CIWA Score Nausea/Vomitin Muscle Tremors: 2 Anxiety: 2 Agitation: 2 Paroxysmal Sweats: 1-Minimal Palms Moist Orientation: 0-Oriented Tacttile Disturbances: 1-Very Mild Itch/Numbness Auditory Disturbances: 1-Very Mild Visual Disturbances: 0-None Headache: 2-Mild CIWA-Ar Total Score: 13 Admission ROS BHS - HPI Chief Complaint: I need help to stop drinking alcohol,cocaine,heroin abused Allergies/Adverse Reactions: Allergies Allergy/AdvReac Type Severity Reaction Status Date / Time No Known Allergies Allergy Verified 07/31/18 14:42 History of Present Illness: this 63 years old male with alcohol,cocaine dependence,heroin abused,seeing detox,withdrawal symptom,last detox [facility] to 06/29/18 several admissions in detox but keep relapsing history of type 2 dm,glaucoma,hard of hearing,hyperlipidemia,anxiety,depression, insomnia nicotine dependence no significant period of sobriety history of blackout Exam Limitations: No Limitations - Ebola screening Have you traveled outside of the country in the last 21 days: No Have you been sick,other than usual withdrawal symptoms: No - Review of Systems Constitutional: Loss of Appetite, Malaise, Night Sweats, Changes in sleep, Weakness, Unintentional Wgt. Loss EENT: reports: Nose Congestion Respiratory: reports: No Symptoms reported Cardiac: reports: No Symptoms Reported GI: reports: Nausea, Poor Appetite, Abdominal cramping : reports: No Symptoms Reported Musculoskeletal: reports: Back Pain, Muscle Pain Integumentary: reports: Dryness Neuro: reports: Headache, Tremors Endocrine: reports: No Symptoms Reported Hematology: reports: No Symptoms Reported Psychiatric: reports: No Sypmtoms Reported, Judgement Intact, Mood/Affect Appropiate, Orientated x3, Depressed Patient History - Patient Medical History Hx Anemia: No Hx Asthma: No Hx Chronic Obstructive Pulmonary Disease (COPD): No Hx Cancer: No Hx Cardiac Disorders: No Hx Congestive Heart Failure: No Hx Hypertension: No Hx Hypercholesterolemia: Yes Hx Pacemaker: No HX Cerebrovascular Accident: No Hx Seizures: No Hx Dementia: No Hx Diabetes: Yes (TypeII) Hx Gastrointestinal Disorders: No Hx Liver Disease: No Hx Genitourinary Disorders: No Hx Sexually Transmitted Disorders: No Hx Renal Disease (ESRD): No Hx Thyroid Disease: No Hx Human Immunodeficiency Virus (HIV): No (last 06/22 negative) Hx Hepatitis C: No Hx Depression: No Hx Suicide Attempt: No Hx Bipolar Disorder: No Hx Schizophrenia: No Other Medical History: no suicidal,no homicidal - Patient Surgical History Past Surgical History: No - PPD History Previous Implant?: Yes Documented Results: Negative w/proof Implanted On Prior [facility] Admission?: Yes Date: 05/20/18 Results: 0 mm PPD to be Administered?: No - Smoking Cessation Smoking history: Current every day smoker Have you smoked in the past 12 months: Yes Aproximately how many cigarettes per day: 10 Hx Chewing Tobacco Use: No Initiated information on smoking cessation: Yes 'Breaking Loose' booklet given: 07/31/18 - Substance & Tx. History Hx Alcohol Use: Yes Hx Substance Use: Yes Substance Use Type: Alcohol, Marijuana Hx Substance Use Treatment: Yes ([facility] 06/25/18 to 06/29/18) - Substances Abused Alcohol Route: Oral Frequency: Daily Amount used: 2 SIX PACK OF BEER (12 OUNCES) Age of first use: 17 Date of Last Use: 07/31/18 Heroin Route: Inhalation Frequency: 1-2 times per week Amount used: 1 BAG Age of first use: 62 Date of Last Use: 07/29/18 Cocaine Route: Smoking Frequency: 1-2 times per week Amount used: $20 Age of first use: 37 Date of Last Use: 07/30/18 Marijuana/Hashish Route: Smoking Frequency: 1-2 times per week Amount used: 1 JOINT Age of first use: 15 Date of Last Use: 07/29/18 Family Disease History - Family Disease History Family History: Denies Admission Physical Exam [facility] - Vital Signs Vital Signs: Vital Signs - 24 hr 07/31/18 14:37 Temperature 96.5 F L Pulse Rate 79 Respiratory 18 Rate Blood Pressure 143/81 - Physical General Appearance: Yes: Moderate Distress, Tremorous, Irritable, Sweating, Anxious HEENTM: Yes: Normocephalic, [place], Pharynx Normal Respiratory: Yes: Lungs Clear, Normal Breath Sounds, No Respiratory Distress Neck: Yes: Within Normal Limits Breast: Yes: Within Normal Limits Cardiology: Yes: Within Normal Limits, Regular Rhythm, Regular Rate, S1, S2 Abdominal: Yes: Normal Bowel Sounds, Non Tender, Soft, Pulsatile Mass Genitourinary: Yes: Within Normal Limits Back: Yes: Muscle Spasm Musculoskeletal: Yes: Back pain Extremities: Yes: Within Normal Limits, Normal Range of Motion, Tremors Neurological: Yes: Within Normal Limits, strategic debriefing specialist II-XII NML intact, Fully Oriented, Alert, Motor Strength 5/5 Integumentary: Yes: Dry Lymphatic: Yes: Within Normal Limits - Diagnostic (1) Alcohol dependence with withdrawal Current Visit: No Status: Acute Qualifiers: Complication of substance-induced condition: uncomplicated Qualified Code(s ): F10.230 - Alcohol dependence with withdrawal, uncomplicated (2) Cocaine dependence Current Visit: No Status: Chronic Qualifiers: Substance use status: uncomplicated Qualified Code(s): F14.20 - Cocaine dependence, uncomplicated (3) [place] (hard of hearing) Current Visit: No Status: Chronic Qualifiers: Hearing loss type: unspecified Laterality: unspecified laterality Qualified Code(s): H91.90 - Unspecified hearing loss, unspecified ear (4) Hyperlipidemia Current Visit: No Status: Chronic Qualifiers: Hyperlipidemia type: unspecified Qualified Code(s): E78.5 - Hyperlipidemia , unspecified (5) Nicotine dependence Current Visit: No Status: Chronic Qualifiers: Nicotine product type: cigarettes Substance use status: in withdrawal Qualified Code(s): F17.213 - Nicotine dependence, cigarettes, with withdrawal (6) Type 2 diabetes mellitus with hyperglycemia Current Visit: No Status: Chronic (7) Glaucoma Current Visit: Yes Status: Acute (8) Glaucoma Current Visit: Yes Status: Acute (9) Hard of hearing Current Visit: Yes Status: Acute Cleared for Admission [facility] - Detox or Rehab [facility] Level of Care: Medically Managed (urine for drug screen negative for opiate) Detox Regimen/Protocol: Librium [facility] Breath Alcohol Content Breath Alcohol Content: 0.175 Urine Drug Screen - Results Drug Screen Negative: No Urine Drug Screen Results: THC-Marijuana, CANDE-Cocaine
[2018-07-31] MEDS ORDERED: MAGNESIUM CITRATE 300 ML BOTTLE PO PRN (15:14)
[2018-07-31] MEDS ORDERED: guaiFENesin/D-METHORPHAN HB 10 ML UNIT-DOSE CUPS PO PRN (15:14)
[2018-07-31] MEDS ORDERED: chlordiazePOXIDE HCL 25 MG CAPSULE PO PRN (15:14)
[2018-07-31] MEDS ORDERED: NICOTINE POLACRILEX 2 MG GUM BC PRN (15:14)
[2018-07-31] MEDS ORDERED: IBUPROFEN 400 MG TABLET (FP) PO PRN (15:14)
[2018-07-31] MEDS ORDERED: MENTHOL/PHENOL 1 EACH UD MM PRN (15:14)
[2018-07-31] MEDS ORDERED: ACETAMINOPHEN 325 MG TABLET (FP) PO PRN (15:14)
[2018-07-31] MEDS ORDERED: LOPERAMIDE HCL 2 MG CAPSULE PO PRN (15:14)
[2018-07-31] MEDS ORDERED: MAGNESIUM HYDROX 2400MG/30ML ORAL SUSPENSION 30 ML CUP PO PRN (15:14)
[2018-07-31] MEDS ORDERED: P-EPHED 60MG/TRIPROLIDI 2.5MG TABLET PO PRN (15:14)
[2018-07-31] MEDS: NICOTINE 21 MG/24 HOURS TOPICAL PATCH TD SCH (15:51)
[2018-07-31 17:26] LABS: URINE APPEARANCE CLEAR; URINE BILIRUBIN NEGATIVE (<2.0 mg/dL); URINE COLOR YELLOW; URINE GLUCOSE (UA) NEGATIVE (NEGATIVE); URINE KETONE NEGATIVE (NEGATIVE); URINE LEUK ESTERASE NEGATIVE (NEGATIVE); URINE NITRITE NEGATIVE (NEGATIVE); URINE PROTEIN NEGATIVE (NEGATIVE); URINE UROBILINOGEN NEGATIVE mg/dL (0.2-1.0)
[2018-07-31] MEDS: metFORMIN HCL 500 MG TABLET (FP) PO SCH (17:52)
[2018-07-31] MEDS: chlordiazePOXIDE HCL 25 MG CAPSULE PO SCH ×2 (17:52→22:19)
[2018-07-31 18:10] LABS: URINE BACTERIA RARE /hpf (NONE SEEN); URINE MUCUS RARE
[2018-07-31] MEDS: ATORVASTATIN CA 20 MG TABLET (FP) PO SCH (22:18)
[2018-07-31] MEDS: THIAMINE HCL 100 MG TABLET (FP) PO SCH (22:18)
[2018-07-31] MEDS: TIMOLOL MALEATE 0.5% GFS OPHTHALMIC SOLN 5 ML BOTTLE OU SCH (22:19)
[2018-07-31] MEDS: BRIMONIDINE TARTRATE 0.1% OPHTHALMIC 5 ML BOTTLE OU SCH (22:20)
[2018-08-01] MEDS: chlordiazePOXIDE HCL 25 MG CAPSULE PO SCH ×4 (05:43→22:09)
[2018-08-01] MEDS: metFORMIN HCL 500 MG TABLET (FP) PO SCH ×2 (06:17→17:38)
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
[2018-08-01] MEDS: PRENATAL VITAMINS W/ FOLIC ACID TABLET (FP) PO SCH (10:18)
[2018-08-01] MEDS: ASPIRIN 81 MG CHEWABLE TABLETS PO SCH (10:18)
[2018-08-01] MEDS: TIMOLOL MALEATE 0.5% GFS OPHTHALMIC SOLN 5 ML BOTTLE OU SCH ×2 (10:19→22:10)
[2018-08-01] MEDS: BRIMONIDINE TARTRATE 0.1% OPHTHALMIC 5 ML BOTTLE OU SCH ×2 (10:19→22:10)
[2018-08-01] MEDS: NICOTINE 21 MG/24 HOURS TOPICAL PATCH TD SCH (10:20)
[2018-08-01 10:32] LABS: HEMATOCRIT 40.5 % (35.4-49); HEMOGLOBIN 13.3 GM/dL (11.7-16.9); MCH 35.6 pg (25.7-33.7); MCHC 32.8 g/dl (32.0-35.9); MEAN CELL VOLUME 108.6 fl (80-96); MEAN PLT VOLUME 9.3 fl (7.5-11.1); PLATELET COUNT 191 K/MM3 (134-434); RBC 3.73 M/mm3 (4.00-5.60); RDW 13.3 % (11.9-15.9); WHITE BLOOD COUNT 5.3 K/mm3 (4.0-10.0)
[2018-08-01 10:45] LABS: ALBUMIN 3.4 g/dl (3.4-5.0); ALK PHOS 76 U/L (45-117); ANION GAP 11 MMOL/L (8-16); BILIRUBIN,TOTAL 1.2 mg/dL (0.2-1); BLOOD UREA NITROGEN 14 mg/dL (7-18); CALCIUM 8.7 mg/dL (8.5-10.1); CHLORIDE 107 mmol/L (98-107); CO2 24 mmol/L (21-32); CREATININE 0.9 mg/dL (0.55-1.3); GLUCOSE,RANDOM 144 mg/dL (74-106); POTASSIUM 3.8 mmol/L (3.5-5.1); SGOT/AST 47 U/L (15-37); SGPT/ALT 66 U/L (13-61); SODIUM 142 mmol/L (136-145); TOT PROT 6.4 g/dl (6.4-8.2)
--- NOTE | 2018-08-01 12:30 | PN ---
S CIWA - CIWA Score Nausea/Vomitin Muscle Tremors: 4-Moderate,w/Arms Extend Anxiety: 4-Mod. Anxious/Guarded Agitation: 3 Paroxysmal Sweats: 3 Orientation: 0-Oriented Tacttile Disturbances: 0-None Auditory Disturbances: 0-None Visual Disturbances: 0-None Headache: 0-None Present CIWA-Ar Total Score: 16 S Progress Note (SOAP) Subjective: Diarrhea, interrupted sleep, anxious. Patient requesting cane for easier mobility. Objective: 08/01/18 12:27 Last Vital Signs Temp Pulse Resp BP Pulse Ox 97.7 F 89 18 155/80 08/01/18 09:39 08/01/18 09:39 08/01/18 09:39 08/01/18 09:39 Laboratory Tests 07/31/18 07/31/18 07/31/18 15:05 15:28 16:14 WBC RBC Hgb Hct MCV MCH MCHC RDW Plt Count MPV Sodium Potassium Chloride Carbon Dioxide Anion Gap BUN Creatinine Creat Clearance w eGFR POC Glucometer 157 174 Random Glucose Calcium Total Bilirubin AST ALT Alkaline Phosphatase Total Protein Albumin Urine Color Yellow Urine Appearance Clear Urine pH 5.0 Ur Specific [place] 1.011 Urine Protein Negative Urine Glucose (UA) Negative Urine Ketones Negative Urine Blood 1+ H Urine Nitrite Negative Urine Bilirubin Negative Urine Urobilinogen Negative Ur Leukocyte Esterase Negative Urine WBC (Auto) None Urine RBC (Auto) None Urine Bacteria Rare Urine Mucus Rare RPR Titer 08/01/18 08/01/18 08/01/18 05:42 07:35 07:35 WBC 5.3 RBC 3.73 L Hgb 13.3 Hct 40.5 MCV 108.6 H MCH 35.6 H MCHC 32.8 RDW 13.3 Plt Count 191 MPV 9.3 Sodium 142 Potassium 3.8 Chloride 107 Carbon Dioxide 24 Anion Gap 11 BUN 14 Creatinine 0.9 Creat Clearance w eGFR > 60 POC Glucometer 139 Random Glucose 144 H Calcium 8.7 Total Bilirubin 1.2 H AST 47 H ALT 66 H Alkaline Phosphatase 76 Total Protein 6.4 Albumin 3.4 Urine Color Urine Appearance Urine pH Ur Specific [place] Urine Protein Urine Glucose (UA) Urine Ketones Urine Blood Urine Nitrite Urine Bilirubin Urine Urobilinogen Ur Leukocyte Esterase Urine WBC (Auto) Urine RBC (Auto) Urine Bacteria Urine Mucus RPR Titer 08/01/18 07:35 WBC RBC Hgb Hct MCV MCH MCHC RDW Plt Count MPV Sodium Potassium Chloride Carbon Dioxide Anion Gap BUN Creatinine Creat Clearance w eGFR POC Glucometer Random Glucose Calcium Total Bilirubin AST ALT Alkaline Phosphatase Total Protein Albumin Urine Color Urine Appearance Urine pH Ur Specific [place] Urine Protein Urine Glucose (UA) Urine Ketones Urine Blood Urine Nitrite Urine Bilirubin Urine Urobilinogen Ur Leukocyte Esterase Urine WBC (Auto) Urine RBC (Auto) Urine Bacteria Urine Mucus RPR Titer Nonreactive Labs reviewed: UA 1+ blood, hyperglycemia r/t DMT2 Assessment: 08/01/18 12:29 Withdrawal symptoms Microscopic hematuria noted Plan: Continue detox Microscopic hematuria: encouraged PO water intake, repeat UA
--- NOTE | 2018-08-01 13:49 | EKG ---
Test Reason : Blood Pressure : / mmHG Vent. Rate : 077 BPM Atrial Rate : 077 BPM P-R Int : 130 ms QRS Dur : 080 ms QT Int : 374 ms P-R-T Axes : 074 053 049 degrees QTc Int : 423 ms NORMAL SINUS RHYTHM CANNOT RULE OUT ANTERIOR INFARCT , AGE UNDETERMINED ABNORMAL ECG WHEN COMPARED WITH ECG OF 25-JUN-2018 18:53, PREMATURE ATRIAL COMPLEXES ARE NO LONGER PRESENT Confirmed by MD Veronica, Ruperto ([id number]) on 08/01/2018 1:49:37 PM Referred By: DELMER LOVE Confirmed By:Ruperto Martin MD
[2018-08-01 18:10] LABS: URINE APPEARANCE CLEAR; URINE BILIRUBIN NEGATIVE (<2.0 mg/dL); URINE COLOR YELLOW; URINE GLUCOSE (UA) NEGATIVE (NEGATIVE); URINE KETONE NEGATIVE (NEGATIVE); URINE LEUK ESTERASE NEGATIVE (NEGATIVE); URINE NITRITE NEGATIVE (NEGATIVE); URINE PROTEIN NEGATIVE (NEGATIVE); URINE UROBILINOGEN NEGATIVE mg/dL (0.2-1.0)
[2018-08-01] MEDS: THIAMINE HCL 100 MG TABLET (FP) PO SCH (22:09)
[2018-08-01] MEDS: ATORVASTATIN CA 20 MG TABLET (FP) PO SCH (22:09)
[2018-08-01] MEDS: hydrOXYzine PAMOATE 50 MG CAPSULE (FP) PO PRN (22:09)
[2018-08-01] MEDS: MELATONIN 5 MG TABLETS PO PRN (22:10)
[2018-08-02] MEDS: chlordiazePOXIDE HCL 25 MG CAPSULE PO SCH ×2 (05:32→10:20)
[2018-08-02] MEDS: metFORMIN HCL 500 MG TABLET (FP) PO SCH ×2 (07:23→17:37)
[2018-08-02] MEDS: TIMOLOL MALEATE 0.5% GFS OPHTHALMIC SOLN 5 ML BOTTLE OU SCH ×2 (10:19→22:02)
[2018-08-02] MEDS: ASPIRIN 81 MG CHEWABLE TABLETS PO SCH (10:20)
[2018-08-02] MEDS: PRENATAL VITAMINS W/ FOLIC ACID TABLET (FP) PO SCH (10:20)
[2018-08-02] MEDS: BRIMONIDINE TARTRATE 0.1% OPHTHALMIC 5 ML BOTTLE OU SCH ×2 (10:20→22:02)
[2018-08-02] MEDS: hydrOXYzine PAMOATE 50 MG CAPSULE (FP) PO PRN ×3 (10:22→20:17)
[2018-08-02] MEDS: NICOTINE 21 MG/24 HOURS TOPICAL PATCH TD SCH (10:22)
--- NOTE | 2018-08-02 15:02 | PN ---
[facility] CIWA - CIWA Score Nausea/Vomitin-Mild Nausea/No Vomiting Muscle Tremors: 3 Anxiety: 3 Agitation: 3 Paroxysmal Sweats: 2 Orientation: 0-Oriented Tacttile Disturbances: 0-None Auditory Disturbances: 0-None Visual Disturbances: 0-None Headache: 0-None Present CIWA-Ar Total Score: 12 S Progress Note (SOAP) Subjective: Sleep disturbance weak sweats Objective: 08/02/18 15:00 A & ox 3 Anxious restless no acute distress Vital Signs Temperature 98.4 F 08/02/18 13:04 Pulse Rate 100 H 08/02/18 13:04 Respiratory Rate 20 08/02/18 13:04 Blood Pressure 147/88 08/02/18 13:04 O2 Sat by Pulse Oximetry (%) Urine Test Results Urine Color Yellow 08/01/18 16:33 Urine Appearance Clear 08/01/18 16:33 Urine pH 6.0 (5.0-8.0) 08/01/18 16:33 Ur Specific [place] 1.019 (1.010-1.035) 08/01/18 16:33 Urine Protein Negative (NEGATIVE) 08/01/18 16:33 Urine Glucose (UA) Negative (NEGATIVE) 08/01/18 16:33 Urine Ketones Negative (NEGATIVE) 08/01/18 16:33 Urine Blood Negative (NEGATIVE) 08/01/18 16:33 Urine Nitrite Negative (NEGATIVE) 08/01/18 16:33 Urine Bilirubin Negative (<2.0 mg/dL) 08/01/18 16:33 Ur Leukocyte Esterase Negative (NEGATIVE) 08/01/18 16:33 Urine Bacteria Rare /hpf (NONE SEEN) 07/31/18 15:28 Urine Mucus Rare 07/31/18 15:28 UA noted Assessment: 08/02/18 15:01 withdrawal sx Plan: Continue detox continue increased hydration
[2018-08-02] MEDS: chlordiazePOXIDE 5 MG CAPSULE PO SCH ×2 (17:36→22:03)
[2018-08-02] MEDS: ALBUTEROL SO4 0.083% IH SOL 2.5 MG/3 ML VIAL.NEB. NEB PRN (17:50)
[2018-08-02] MEDS: MAG HYDROX/AL HYDROX/SIMETH 30 ML UNIT-DOSE CUP PO PRN (21:45)
[2018-08-02] MEDS: THIAMINE HCL 100 MG TABLET (FP) PO SCH (22:03)
[2018-08-02] MEDS: ATORVASTATIN CA 20 MG TABLET (FP) PO SCH (22:03)
[2018-08-02] MEDS: MELATONIN 5 MG TABLETS PO PRN (22:04)
[2018-08-03] MEDS: ALBUTEROL SO4 0.083% IH SOL 2.5 MG/3 ML VIAL.NEB. NEB PRN ×3 (05:31→17:15)
[2018-08-03] MEDS: chlordiazePOXIDE 5 MG CAPSULE PO SCH ×2 (05:32→10:05)
[2018-08-03] MEDS: metFORMIN HCL 500 MG TABLET (FP) PO SCH ×2 (06:09→17:11)
[2018-08-03] MEDS: BRIMONIDINE TARTRATE 0.1% OPHTHALMIC 5 ML BOTTLE OU SCH ×2 (10:05→22:04)
[2018-08-03] MEDS: TIMOLOL MALEATE 0.5% GFS OPHTHALMIC SOLN 5 ML BOTTLE OU SCH ×2 (10:05→22:04)
[2018-08-03] MEDS: PRENATAL VITAMINS W/ FOLIC ACID TABLET (FP) PO SCH (10:06)
[2018-08-03] MEDS: hydrOXYzine PAMOATE 50 MG CAPSULE (FP) PO PRN ×2 (10:06→22:06)
[2018-08-03] MEDS: NICOTINE 21 MG/24 HOURS TOPICAL PATCH TD SCH (10:06)
[2018-08-03] MEDS: ASPIRIN 81 MG CHEWABLE TABLETS PO SCH (10:06)
[2018-08-03] MEDS: MAG HYDROX/AL HYDROX/SIMETH 30 ML UNIT-DOSE CUP PO PRN ×3 (10:09→21:06)
--- NOTE | 2018-08-03 10:30 | PN ---
[facility] Progress Note Note: PATIENT CONTINUES WITH DETOX REGIMEN. C/O INTERRUPTED SLEEP. Vital Signs Temperature 97.2 F L 08/03/18 09:32 Pulse Rate 96 H 08/03/18 09:32 Respiratory Rate 20 08/03/18 09:32 Blood Pressure 131/78 08/03/18 09:32 O2 Sat by Pulse Oximetry (%) Laboratory Tests 07/31/18 07/31/18 07/31/18 15:05 15:28 16:14 WBC RBC Hgb Hct MCV MCH MCHC RDW Plt Count MPV Sodium Potassium Chloride Carbon Dioxide Anion Gap BUN Creatinine Creat Clearance w eGFR POC Glucometer 157 174 Random Glucose Calcium Total Bilirubin AST ALT Alkaline Phosphatase Total Protein Albumin Urine Color Yellow Urine Appearance Clear Urine pH 5.0 Ur Specific [place] 1.011 Urine Protein Negative Urine Glucose (UA) Negative Urine Ketones Negative Urine Blood 1+ H Urine Nitrite Negative Urine Bilirubin Negative Urine Urobilinogen Negative Ur Leukocyte Esterase Negative Urine WBC (Auto) None Urine RBC (Auto) None Urine Bacteria Rare Urine Mucus Rare RPR Titer 08/01/18 08/01/18 08/01/18 05:42 07:35 07:35 WBC 5.3 RBC 3.73 L Hgb 13.3 Hct 40.5 MCV 108.6 H MCH 35.6 H MCHC 32.8 RDW 13.3 Plt Count 191 MPV 9.3 Sodium 142 Potassium 3.8 Chloride 107 Carbon Dioxide 24 Anion Gap 11 BUN 14 Creatinine 0.9 Creat Clearance w eGFR > 60 POC Glucometer 139 Random Glucose 144 H Calcium 8.7 Total Bilirubin 1.2 H AST 47 H ALT 66 H Alkaline Phosphatase 76 Total Protein 6.4 Albumin 3.4 Urine Color Urine Appearance Urine pH Ur Specific [place] Urine Protein Urine Glucose (UA) Urine Ketones Urine Blood Urine Nitrite Urine Bilirubin Urine Urobilinogen Ur Leukocyte Esterase Urine WBC (Auto) Urine RBC (Auto) Urine Bacteria Urine Mucus RPR Titer 08/01/18 08/01/18 08/01/18 07:35 16:18 16:33 WBC RBC Hgb Hct MCV MCH MCHC RDW Plt Count MPV Sodium Potassium Chloride Carbon Dioxide Anion Gap BUN Creatinine Creat Clearance w eGFR POC Glucometer 134 Random Glucose Calcium Total Bilirubin AST ALT Alkaline Phosphatase Total Protein Albumin Urine Color Yellow Urine Appearance Clear Urine pH 6.0 Ur Specific [place] 1.019 Urine Protein Negative Urine Glucose (UA) Negative Urine Ketones Negative Urine Blood Negative Urine Nitrite Negative Urine Bilirubin Negative Urine Urobilinogen Negative Ur Leukocyte Esterase Negative Urine WBC (Auto) Urine RBC (Auto) Urine Bacteria Urine Mucus RPR Titer Nonreactive 08/02/18 08/02/18 08/03/18 05:31 16:26 05:32 WBC RBC Hgb Hct MCV MCH MCHC RDW Plt Count MPV Sodium Potassium Chloride Carbon Dioxide Anion Gap BUN Creatinine Creat Clearance w eGFR POC Glucometer 114 176 141 Random Glucose Calcium Total Bilirubin AST ALT Alkaline Phosphatase Total Protein Albumin Urine Color Urine Appearance Urine pH Ur Specific [place] Urine Protein Urine Glucose (UA) Urine Ketones Urine Blood Urine Nitrite Urine Bilirubin Urine Urobilinogen Ur Leukocyte Esterase Urine WBC (Auto) Urine RBC (Auto) Urine Bacteria Urine Mucus RPR Titer ALERT AND ORIENTED X 3 SKIN WARM AND DRY EXT FULL ROM AMB AD [id number] A/P WITHDRAWAL SX CONTINUE DETOX ORDERED ENCOURAGE ORAL FLUIDS CONTINUE TO MONITOR CLINICALLY
[2018-08-03] MEDS: ALBUTEROL SO4 8 GM HFA INHALER IH PRN ×2 (14:09→18:58)
[2018-08-03] MEDS: chlordiazePOXIDE HCL 10 MG CAPSULE PO SCH ×2 (17:11→22:05)
[2018-08-03] MEDS: ATORVASTATIN CA 20 MG TABLET (FP) PO SCH (22:05)
[2018-08-03] MEDS: THIAMINE HCL 100 MG TABLET (FP) PO SCH (22:05)
[2018-08-03] MEDS: MELATONIN 5 MG TABLETS PO PRN (22:05)
[2018-08-04] MEDS ORDERED: chlordiazePOXIDE 5 MG CAPSULE ONE (04:43)
[2018-08-04] MEDS: chlordiazePOXIDE HCL 10 MG CAPSULE PO SCH (05:30)
[2018-08-04 05:53] VITALS: BP 131/86; PULSE 86; TEMP 97.2
[2018-08-04] MEDS: ALBUTEROL SO4 0.083% IH SOL 2.5 MG/3 ML VIAL.NEB. NEB PRN (06:10)
[2018-08-04] MEDS: metFORMIN HCL 500 MG TABLET (FP) PO SCH (07:33)
--- NOTE | 2018-08-04 11:21 | DS ---
[facility] Detox Discharge Summary Admission Date: 07/31/18 Discharge Date: 08/04/18 - History Present History: Alcohol Dependence, Cocaine Dependence Pertinent Past History: Glaucoma HTN TE-MOAK HLD Nicotine dependence DMT2 with hyperglycemia Alcohol dependence Cocaine dependence - Physical Exam Results Vital Signs: Vital Signs Temperature 97.2 F L 08/04/18 05:52 Pulse Rate 86 08/04/18 05:52 Respiratory Rate 18 08/04/18 05:52 Blood Pressure 131/86 08/04/18 05:52 O2 Sat by Pulse Oximetry (%) Pertinent Admission Physical Exam Findings: Withdrawal symptoms Laboratory Tests 07/31/18 07/31/18 07/31/18 15:05 15:28 16:14 WBC RBC Hgb Hct MCV MCH MCHC RDW Plt Count MPV Sodium Potassium Chloride Carbon Dioxide Anion Gap BUN Creatinine Creat Clearance w eGFR POC Glucometer 157 174 Random Glucose Calcium Total Bilirubin AST ALT Alkaline Phosphatase Total Protein Albumin Urine Color Yellow Urine Appearance Clear Urine pH 5.0 Ur Specific [place] 1.011 Urine Protein Negative Urine Glucose (UA) Negative Urine Ketones Negative Urine Blood 1+ H Urine Nitrite Negative Urine Bilirubin Negative Urine Urobilinogen Negative Ur Leukocyte Esterase Negative Urine WBC (Auto) None Urine RBC (Auto) None Urine Bacteria Rare Urine Mucus Rare RPR Titer 08/01/18 08/01/18 08/01/18 05:42 07:35 07:35 WBC 5.3 RBC 3.73 L Hgb 13.3 Hct 40.5 MCV 108.6 H MCH 35.6 H MCHC 32.8 RDW 13.3 Plt Count 191 MPV 9.3 Sodium 142 Potassium 3.8 Chloride 107 Carbon Dioxide 24 Anion Gap 11 BUN 14 Creatinine 0.9 Creat Clearance w eGFR > 60 POC Glucometer 139 Random Glucose 144 H Calcium 8.7 Total Bilirubin 1.2 H AST 47 H ALT 66 H Alkaline Phosphatase 76 Total Protein 6.4 Albumin 3.4 Urine Color Urine Appearance Urine pH Ur Specific [place] Urine Protein Urine Glucose (UA) Urine Ketones Urine Blood Urine Nitrite Urine Bilirubin Urine Urobilinogen Ur Leukocyte Esterase Urine WBC (Auto) Urine RBC (Auto) Urine Bacteria Urine Mucus RPR Titer 08/01/18 08/01/18 08/01/18 07:35 16:18 16:33 WBC RBC Hgb Hct MCV MCH MCHC RDW Plt Count MPV Sodium Potassium Chloride Carbon Dioxide Anion Gap BUN Creatinine Creat Clearance w eGFR POC Glucometer 134 Random Glucose Calcium Total Bilirubin AST ALT Alkaline Phosphatase Total Protein Albumin Urine Color Yellow Urine Appearance Clear Urine pH 6.0 Ur Specific [place] 1.019 Urine Protein Negative Urine Glucose (UA) Negative Urine Ketones Negative Urine Blood Negative Urine Nitrite Negative Urine Bilirubin Negative Urine Urobilinogen Negative Ur Leukocyte Esterase Negative Urine WBC (Auto) Urine RBC (Auto) Urine Bacteria Urine Mucus RPR Titer Nonreactive 08/02/18 08/02/18 08/03/18 05:31 16:26 05:32 WBC RBC Hgb Hct MCV MCH MCHC RDW Plt Count MPV Sodium Potassium Chloride Carbon Dioxide Anion Gap BUN Creatinine Creat Clearance w eGFR POC Glucometer 114 176 141 Random Glucose Calcium Total Bilirubin AST ALT Alkaline Phosphatase Total Protein Albumin Urine Color Urine Appearance Urine pH Ur Specific [place] Urine Protein Urine Glucose (UA) Urine Ketones Urine Blood Urine Nitrite Urine Bilirubin Urine Urobilinogen Ur Leukocyte Esterase Urine WBC (Auto) Urine RBC (Auto) Urine Bacteria Urine Mucus RPR Titer 08/03/18 08/04/18 16:21 05:19 WBC RBC Hgb Hct MCV MCH MCHC RDW Plt Count MPV Sodium Potassium Chloride Carbon Dioxide Anion Gap BUN Creatinine Creat Clearance w eGFR POC Glucometer 151 117 Random Glucose Calcium Total Bilirubin AST ALT Alkaline Phosphatase Total Protein Albumin Urine Color Urine Appearance Urine pH Ur Specific [place] Urine Protein Urine Glucose (UA) Urine Ketones Urine Blood Urine Nitrite Urine Bilirubin Urine Urobilinogen Ur Leukocyte Esterase Urine WBC (Auto) Urine RBC (Auto) Urine Bacteria Urine Mucus RPR Titer Labs reviewed - Treatment Hospital Course: Detox Protocol Followed, Detoxed Safely, Responded well, Discharged Condition Good - Medication Discharge Medications: Ambulatory Orders Aspirin [ASA -] 81 mg PO DAILY 05/18/18 Meloxicam [Mobic] 15 mg PO DAILY 05/18/18 Simvastatin [Zocor -] 40 mg PO HS 05/18/18 Atorvastatin Ca [Lipitor] 20 mg PO HS #20 tablet 08/03/18 Brimonidine Tartrate [Alphagan P 0.1% -] 1 drop OU BID #1 bottle 08/03/18 Metformin HCl [Glucophage] 1,000 mg PO BID #60 tablet 08/03/18 Timolol Maleate 0.5% Gfs [Timoptic Xe 0.5%] 1 drop OU BID #1 bottle 08/03/18 - Diagnosis (1) Microscopic hematuria Status: Resolved (2) Glaucoma Status: Chronic Qualifiers: Primary angle closure glaucoma type: chronic (3) Hard of hearing Status: Chronic (4) Alcohol dependence with uncomplicated withdrawal Status: Acute (5) Cocaine dependence Status: Chronic Qualifiers: Substance use status: uncomplicated Qualified Code(s): F14.20 - Cocaine dependence, uncomplicated (6) Hyperlipidemia Status: Chronic Qualifiers: Hyperlipidemia type: unspecified Qualified Code(s): E78.5 - Hyperlipidemia , unspecified (7) Nicotine dependence Status: Chronic Qualifiers: Nicotine product type: cigarettes Substance use status: in withdrawal Qualified Code(s): F17.213 - Nicotine dependence, cigarettes, with withdrawal (8) Type 2 diabetes mellitus with hyperglycemia Status: Chronic - AMA Did Patient Leave Against Medical Advice: No (F/U with PCP within 1-2 weeks)
== END 2018-08-04 08:49 | disposition home or self-care (01) | DRG 773 ==
LOC: YASAS 14:27 → Y3N 14:48
PROC: HZ2ZZZZ Detoxification Services for Substance Abuse Treatment (ICD-10-PCS; principal; 2018-07-31)
DX: F10.230 Alcohol dependence with withdrawal, uncomplicated (principal); F14.20 Cocaine dependence, uncomplicated; F12.20 Cannabis dependence, uncomplicated; F11.21 Opioid dependence, in remission; F17.213 Nicotine dependence, cigarettes, with withdrawal; F19.24 Other psychoactive substance dependence with psychoactive substance-induced mood disorder; I10 Essential (primary) hypertension; E11.9 Type 2 diabetes mellitus without complications; E78.5 Hyperlipidemia, unspecified; H40.9 Unspecified glaucoma; R31.29 Other microscopic hematuria; H91.90 Unspecified hearing loss, unspecified ear; E55.9 Vitamin D deficiency, unspecified; Z79.84 Long term (current) use of oral hypoglycemic drugs
CPT/HCPCS: 36415; 80053; 81003; 81015; 82962; 85027; 86593; 93005; 93010; 94640

== ENCOUNTER 2018-10-12 11:37 | Inpatient (IN) | payer OTHER ==
[2018-10-12 13:17] VITALS: BMI 22.8
--- NOTE | 2018-10-12 14:12 | HP ---
COWS - Scale Resting Pulse: 1= [place] 81-100 Sweatin= Chills/Flushing Restless Observation: 3= Extraneous Movement Pupil Size: 1= Pupils >than Normal Bone or Joint Aches: 2= Severe Diffuse Aches Runny Nose/ Eye Tearin= Runny Nose/Eyes GI Upset > 30mins: 2= Nausea/Diarrhea Tremor Observation: 2= Slight Tremor Visible Yawning Observation: 2= >3x During Session Anxiety or Irritability: 2=Irritable/Anxious Goose Flesh Skin: 0=Smooth Skin COWS Score: 18 CIWA Score Nausea/Vomitin Muscle Tremors: 2 Anxiety: 2 Agitation: 2 Paroxysmal Sweats: 1-Minimal Palms Moist Orientation: 0-Oriented Tacttile Disturbances: 1-Very Mild Itch/Numbness Auditory Disturbances: 1-Very Mild Visual Disturbances: 0-None Headache: 2-Mild CIWA-Ar Total Score: 13 - Admission Criteria [facility]ASAS Guidelines: Admission for Medically Managed Detox: Requires at least one of the followin. CIWA greater than 12 2. Seizures within the past 24 hours 3. Delirium tremens within the past 24 hours 4. Hallucinations within the past 24 hours 5. Acute intervention needed for co occurring medical disorder 6. Acute intervention needed for co occurring psychiatric disorder 7. Severe withdrawal that cannot be handled at a lower level of care (continued vomiting, continued diarrhea, abnormal vital signs) requiring intravenous medication and/or fluids 8. Patient presents the following: CIWA greater than 12 Admission Criteria Met: Admission criteria met Admission ROS [facility] Chief Complaint: i need help to stop using heroin,alcohol,cocaine and marijuana Allergies/Adverse Reactions: Allergies Allergy/AdvReac Type Severity Reaction Status Date / Time No Known Allergies Allergy Verified 07/31/18 14:42 History of Present Illness: this 63 years old male with heroin,alcohol,cocaine and marijuana dependence, seeking detox,withdrawal symptom,last detox 07/31/18 to 08/04/18 syncope alcohol related hypercholesterolemia type 2 dm glaucoma left eye neuropathy multiple admissions in the past but keep relapsing longest period of sobriety 8 years asthma - Ebola screening Have you traveled outside of the country in the last 21 days: No Have you had contact with anyone from an Ebola affected area: No Have you been sick,other than usual withdrawal symptoms: No Do you have a fever: No - Review of Systems Constitutional: Chills, Loss of Appetite, Malaise, Night Sweats, Changes in sleep, Weakness, Unintentional Wgt. Loss EENT: reports: Tearing, Nose Congestion Respiratory: reports: No Symptoms reported Cardiac: reports: No Symptoms Reported GI: reports: Diarrhea, Nausea, Vomiting, Abdominal cramping : reports: No Symptoms Reported Musculoskeletal: reports: Back Pain, Joint Pain, Muscle Pain, Joint Stiffness Integumentary: reports: Dryness Neuro: reports: Headache, Tremors Endocrine: reports: No Symptoms Reported Hematology: reports: No Symptoms Reported Psychiatric: reports: No Sypmtoms Reported, Judgement Intact, Mood/Affect Appropiate, Orientated x3 Patient History - Patient Medical History Hx Anemia: No Hx Asthma: No Hx Chronic Obstructive Pulmonary Disease (COPD): No Hx Cancer: No Hx Cardiac Disorders: No Hx Congestive Heart Failure: No Hx Hypertension: No Hx Hypercholesterolemia: Yes (on med) Hx Pacemaker: No HX Cerebrovascular Accident: No Hx Seizures: No Hx Dementia: No Hx Diabetes: Yes (TypeII) Hx Gastrointestinal Disorders: No Hx Liver Disease: No Hx Genitourinary Disorders: No Hx Sexually Transmitted Disorders: No Hx Renal Disease (ESRD): No Hx Thyroid Disease: No Hx Human Immunodeficiency Virus (HIV): No (last 06/22 negative) Hx Hepatitis C: No Hx Depression: No Hx Suicide Attempt: No Hx Bipolar Disorder: No Hx Schizophrenia: No - Patient Surgical History Past Surgical History: No Hx Neurologic Surgery: No Hx Cataract Extraction: No Hx Cardiac Surgery: No Hx Lung Surgery: No Hx Breast Surgery: No Hx Breast Biopsy: No Hx Abdominal Surgery: No Hx Appendectomy: No Hx Cholecystectomy: No Hx Genitourinary Surgery: No Hx Section: No Hx Orthopedic Surgery: No Anesthesia Reaction: No - PPD History Previous Implant?: Yes Documented Results: Negative w/proof Implanted On Prior [facility] Admission?: Yes Date: 05/20/18 Results: 0 mm PPD to be Administered?: No - Smoking Cessation Smoking history: Current every day smoker Have you smoked in the past 12 months: Yes Aproximately how many cigarettes per day: 10 Hx Chewing Tobacco Use: No Initiated information on smoking cessation: Yes 'Breaking Loose' booklet given: 10/12/18 - Substance & Tx. History Hx Alcohol Use: Yes Hx Substance Use: Yes Substance Use Type: Alcohol, Cocaine, Heroin, Marijuana Hx Substance Use Treatment: Yes ([facility] 07/31/18 to 08/04/18) - Substances Abused Heroin Route: Inhalation Frequency: Daily Amount used: 3 bags Age of first use: 62 Date of Last Use: 10/11/18 Alcohol Route: Oral Frequency: Daily Amount used: 3 12 oz beers Age of first use: 14 Date of Last Use: 10/12/18 Crack Route: Smoking Frequency: Daily Amount used: $100 Age of first use: 28 Date of Last Use: 10/11/18 Marijuana/Hashish Route: Smoking Frequency: 1-2 times per week Amount used: 2 tokes off a joint Age of first use: 14 Date of Last Use: 10/11/18 Family Disease History - Family Disease History Family Disease History: Other: Mother (alcohol,) Admission Physical Exam [facility] - Vital Signs Vital Signs: Vital Signs - 24 hr 10/12/18 13:15 Temperature 97.2 F L Pulse Rate 89 Respiratory 20 Rate Blood Pressure 103/39 L - Physical General Appearance: Yes: Moderate Distress, Tremorous, Irritable, Sweating, Anxious HEENTM: Yes: Normal ENT Inspection, KELVIN, Pharynx Normal Respiratory: Yes: Lungs Clear, Normal Breath Sounds, No Respiratory Distress Neck: Yes: Within Normal Limits, Supple, Trachea in good position Breast: Yes: Within Normal Limits Cardiology: Yes: Within Normal Limits, Regular Rhythm, Regular Rate, S1, S2 Abdominal: Yes: Within Normal Limits, Normal Bowel Sounds, Non Tender, Flat, Soft Genitourinary: Yes: Within Normal Limits Back: Yes: Within Normal Limits, Muscle Spasm Musculoskeletal: Yes: Back pain, Joint Stiffness, Muscle Pain Extremities: Yes: Within Normal Limits, Normal Range of Motion, Tremors Neurological: Yes: production gear cutter II-XII NML intact, Fully Oriented, Alert, Motor Strength 5/5 Integumentary: Yes: Dry Lymphatic: Yes: Within Normal Limits - Diagnostic (1) Alcohol dependence with uncomplicated withdrawal Current Visit: No Status: Acute (2) DM2 (diabetes mellitus, type 2) Current Visit: Yes Status: Acute (3) Cocaine dependence Current Visit: No Status: Chronic Qualifiers: Substance use status: uncomplicated Qualified Code(s): F14.20 - Cocaine dependence, uncomplicated (4) Marijuana dependence Current Visit: No Status: Chronic (5) Nicotine dependence Current Visit: No Status: Chronic Qualifiers: Nicotine product type: cigarettes Substance use status: in withdrawal Qualified Code(s): F17.213 - Nicotine dependence, cigarettes, with withdrawal (6) Opioid dependence with withdrawal Current Visit: No Status: Chronic (7) Syncope Current Visit: Yes Status: Acute Cleared for Admission [facility] - Detox or Rehab [facility] Level of Care: Medically Managed Detox Regimen/Protocol: Methadone/Librium [facility] Breath Alcohol Content Breath Alcohol Content: 0.019 Urine Drug Screen - Results Drug Screen Negative: No Urine Drug Screen Results: THC-Marijuana, CANDE-Cocaine, OPI-Opiates, OXY- Oxycodone
[2018-10-12] MEDS ORDERED: MAG HYDROX/AL HYDROX/SIMETH 30 ML UNIT-DOSE CUP PO PRN (14:24)
[2018-10-12] MEDS ORDERED: guaiFENesin/D-METHORPHAN HB 10 ML UNIT-DOSE CUPS PO PRN (14:24)
[2018-10-12] MEDS ORDERED: MENTHOL/PHENOL 1 EACH UD MM PRN (14:24)
[2018-10-12] MEDS ORDERED: P-EPHED 60MG/TRIPROLIDI 2.5MG TABLET PO PRN (14:24)
[2018-10-12] MEDS ORDERED: MAGNESIUM CITRATE 300 ML BOTTLE PO PRN (14:24)
[2018-10-12] MEDS ORDERED: IBUPROFEN 400 MG TABLET (FP) PO PRN (14:24)
[2018-10-12] MEDS ORDERED: chlordiazePOXIDE HCL 25 MG CAPSULE PO PRN (14:24)
[2018-10-12] MEDS ORDERED: LOPERAMIDE HCL 2 MG CAPSULE PO PRN (14:24)
[2018-10-12] MEDS ORDERED: ACETAMINOPHEN 325 MG TABLET (FP) PO PRN (14:24)
[2018-10-12] MEDS ORDERED: METHADONE HCL 10 MG TABLET (FOR DETOX USE ONLY) PO ONE ×2 (15:00→23:00)
[2018-10-12] MEDS: metFORMIN HCL 500 MG TABLET (FP) PO SCH (16:34)
[2018-10-12] MEDS: chlordiazePOXIDE HCL 25 MG CAPSULE PO SCH ×2 (16:34→22:13)
[2018-10-12] MEDS ORDERED: MELATONIN 5 MG TABLETS PO PRN (22:00)
[2018-10-12] MEDS ORDERED: TIMOLOL MALEATE 0.5% GFS OPHTHALMIC SOLN 5 ML BOTTLE OU SCH (22:00)
[2018-10-12] MEDS: THIAMINE HCL 100 MG TABLET (FP) PO SCH (22:13)
[2018-10-12] MEDS: ATORVASTATIN CA 20 MG TABLET (FP) PO SCH (22:14)
[2018-10-12] MEDS: TIMOLOL 0.5% OPHTHALMIC SOL 5 ML BOTTLE OU SCH (22:14)
[2018-10-12] MEDS: BRIMONIDINE TARTRATE 0.1% OPHTHALMIC 5 ML BOTTLE OU SCH (22:14)
[2018-10-13] MEDS: chlordiazePOXIDE HCL 25 MG CAPSULE PO SCH ×4 (06:40→22:14)
[2018-10-13] MEDS: metFORMIN HCL 500 MG TABLET (FP) PO SCH ×2 (07:22→17:11)
[2018-10-13] MEDS ORDERED: METHADONE HCL 10 MG TABLET (FOR DETOX USE ONLY) PO SCH (10:00)
[2018-10-13 10:26] LABS: HEMATOCRIT 41.3 % (35.4-49); HEMOGLOBIN 13.2 GM/dL (11.7-16.9); MCH 34.1 pg (25.7-33.7); MCHC 32.1 g/dl (32.0-35.9); MEAN CELL VOLUME 106.3 fl (80-96); MEAN PLT VOLUME 9.9 fl (7.5-11.1); PLATELET COUNT 257 K/MM3 (134-434); RBC 3.89 M/mm3 (4.00-5.60); RDW 13.3 % (11.9-15.9); WHITE BLOOD COUNT 6.2 K/mm3 (4.0-10.0)
[2018-10-13] MEDS: TIMOLOL 0.5% OPHTHALMIC SOL 5 ML BOTTLE OU SCH ×2 (10:50→22:16)
[2018-10-13] MEDS: BRIMONIDINE TARTRATE 0.1% OPHTHALMIC 5 ML BOTTLE OU SCH ×2 (10:50→22:16)
[2018-10-13] MEDS: ASPIRIN 81 MG CHEWABLE TABLETS PO SCH (10:50)
[2018-10-13] MEDS: PRENATAL VITAMINS W/ FOLIC ACID TABLET (FP) PO SCH (10:50)
[2018-10-13] MEDS ORDERED: ALBUTEROL SO4 8 GM HFA INHALER IH PRN (10:54)
[2018-10-13 11:10] LABS: ALBUMIN 3.7 g/dl (3.4-5.0); ALK PHOS 78 U/L (45-117); ANION GAP 10 MMOL/L (8-16); BILIRUBIN,TOTAL 0.7 mg/dL (0.2-1); BLOOD UREA NITROGEN 12 mg/dL (7-18); CALCIUM 9.1 mg/dL (8.5-10.1); CHLORIDE 104 mmol/L (98-107); CO2 27 mmol/L (21-32); CREATININE 0.9 mg/dL (0.55-1.3); GLUCOSE,RANDOM 123 mg/dL (74-106); POTASSIUM 4.4 mmol/L (3.5-5.1); SGOT/AST 10 U/L (15-37); SGPT/ALT 21 U/L (13-61); SODIUM 141 mmol/L (136-145)
--- NOTE | 2018-10-13 12:28 | PN ---
[facility] CIWA - CIWA Score Nausea/Vomitin-No Nausea/No Vomiting Muscle Tremors: None Anxiety: 4-Mod. Anxious/Guarded Agitation: 5 Paroxysmal Sweats: No Perspiration Orientation: 0-Oriented Tacttile Disturbances: 0-None Auditory Disturbances: 0-None Visual Disturbances: 0-None Headache: 0-None Present CIWA-Ar Total Score: 9 S COWS - Scale Resting Pulse: 0= [place] 80 or Below Sweatin= No chills or Flushing Restless Observation: 1= Difficult to Sit Still Pupil Size: 1= Pupils >than Normal Bone or Joint Aches: 2= Severe Diffuse Aches Runny Nose/ Eye Tearin= None GI Upset > 30mins: 0= None Tremor Observation of Outstretched Hands: 0= None Yawning Observation: 0= None Anxiety or Irritability: 2=Irritable/Anxious Goose Flesh Skin: 0=Smooth Skin COWS Score: 6 S Progress Note (SOAP) Subjective: PATIENT C/O ANXIETY, FEELING IRRITABLE AND INTERRUPTED SLEEP. Objective: 10/13/18 12:26 Vital Signs Temperature 96.9 F L 10/13/18 09:15 Pulse Rate 80 10/13/18 09:15 Respiratory Rate 18 10/13/18 09:15 Blood Pressure 96/63 10/13/18 09:15 O2 Sat by Pulse Oximetry (%) Laboratory Tests 10/12/18 10/12/18 10/13/18 14:28 16:32 05:45 WBC 6.2 RBC 3.89 L Hgb 13.2 Hct 41.3 MCV 106.3 H MCH 34.1 H MCHC 32.1 RDW 13.3 Plt Count 257 D MPV 9.9 Sodium Potassium Chloride Carbon Dioxide Anion Gap BUN Creatinine Creat Clearance w eGFR POC Glucometer 270 181 Random Glucose Calcium Total Bilirubin AST ALT Alkaline Phosphatase Total Protein Albumin RPR Titer 10/13/18 10/13/18 10/13/18 05:45 05:45 06:21 WBC RBC Hgb Hct MCV MCH MCHC RDW Plt Count MPV Sodium 141 Potassium 4.4 Chloride 104 Carbon Dioxide 27 Anion Gap 10 BUN 12 Creatinine 0.9 Creat Clearance w eGFR > 60 POC Glucometer 178 Random Glucose 123 H Calcium 9.1 Total Bilirubin 0.7 AST 10 L ALT 21 Alkaline Phosphatase 78 Total Protein 7.0 Albumin 3.7 RPR Titer Nonreactive ALERT AND ORIENTED X 3 SKIN WARM AND DRY EXT FULL ROM, NO VISIBLE TREMORS AMB AD KATARZYNA IRRITABLE Assessment: 10/13/18 12:27 WITHDRAWAL SX Plan: CONTINUE DETOX ENCOURAGE ORAL FLUIDS CONTINUE TO MONITOR CLINICALLY
[2018-10-13] MEDS ORDERED: NICOTINE POLACRILEX 2 MG GUM BUC PRN (13:33)
[2018-10-13] MEDS: NICOTINE 14 MG/24 HOURS TOPICAL PATCH TD SCH (14:27)
[2018-10-13] MEDS: MAGNESIUM HYDROX 2400MG/30ML ORAL SUSPENSION 30 ML CUP PO PRN (17:40)
[2018-10-13] MEDS: ATORVASTATIN CA 20 MG TABLET (FP) PO SCH (22:14)
[2018-10-13] MEDS: THIAMINE HCL 100 MG TABLET (FP) PO SCH (22:14)
[2018-10-14] MEDS: chlordiazePOXIDE HCL 25 MG CAPSULE PO SCH ×2 (05:53→10:45)
[2018-10-14] MEDS: metFORMIN HCL 500 MG TABLET (FP) PO SCH ×2 (07:47→17:45)
[2018-10-14] MEDS: PRENATAL VITAMINS W/ FOLIC ACID TABLET (FP) PO SCH (10:45)
[2018-10-14] MEDS: METHADONE HCL 5 MG TABLET (FOR DETOX USE ONLY) PO SCH (10:45)
[2018-10-14] MEDS: ASPIRIN 81 MG CHEWABLE TABLETS PO SCH (10:46)
[2018-10-14] MEDS: TIMOLOL 0.5% OPHTHALMIC SOL 5 ML BOTTLE OU SCH ×2 (10:47→21:35)
[2018-10-14] MEDS: BRIMONIDINE TARTRATE 0.1% OPHTHALMIC 5 ML BOTTLE OU SCH ×2 (10:47→21:34)
[2018-10-14] MEDS: NICOTINE 14 MG/24 HOURS TOPICAL PATCH TD SCH (10:49)
--- NOTE | 2018-10-14 11:22 | PN ---
[facility] CIWA - CIWA Score Nausea/Vomitin-No Nausea/No Vomiting Muscle Tremors: 2 Anxiety: 1-Mildly Anxious Agitation: 1-Slight > Activity Paroxysmal Sweats: 1-Minimal Palms Moist Orientation: 1-Uncertain about Date Tacttile Disturbances: 1-Very Mild Itch/Numbness Auditory Disturbances: 0-None Visual Disturbances: 0-None Headache: 2-Mild CIWA-Ar Total Score: 9 [facility] COWS - Scale Resting Pulse: 0= [place] 80 or Below Sweatin= Chills/Flushing Restless Observation: 0= Sits Still Pupil Size: 0= Normal to Room Light Bone or Joint Aches: 2= Severe Diffuse Aches Runny Nose/ Eye Tearin= Nasal Congestion GI Upset > 30mins: 1= Stomach Cramp Tremor Observation of Outstretched Hands: 1= Tremor [place], Not Seen Yawning Observation: 1= 1-2x During Session Anxiety or Irritability: 1=Feels Anxious/Irritable Goose Flesh Skin: 0=Smooth Skin COWS Score: 8 S Progress Note (SOAP) Subjective: tremor sweating restlessness body aches muscle cramping itchy skin Objective: 10/14/18 11:23 Vital Signs Temperature 97.4 F L 10/14/18 09:54 Pulse Rate 78 10/14/18 09:54 Respiratory Rate 16 10/14/18 09:54 Blood Pressure 100/61 10/14/18 09:54 O2 Sat by Pulse Oximetry (%) Laboratory Last Values WBC 6.2 K/mm3 (4.0-10.0) 10/13/18 05:45 RBC 3.89 M/mm3 (4.00-5.60) L 10/13/18 05:45 Hgb 13.2 GM/dL (11.7-16.9) 10/13/18 05:45 Hct 41.3 % (35.4-49) 10/13/18 05:45 MCV 106.3 fl (80-96) H 10/13/18 05:45 MCH 34.1 pg (25.7-33.7) H 10/13/18 05:45 MCHC 32.1 g/dl (32.0-35.9) 10/13/18 05:45 RDW 13.3 % (11.9-15.9) 10/13/18 05:45 Plt Count 257 K/MM3 (134-434) D 10/13/18 05:45 MPV 9.9 fl (7.5-11.1) 10/13/18 05:45 Sodium 141 mmol/L (136-145) 10/13/18 05:45 Potassium 4.4 mmol/L (3.5-5.1) 10/13/18 05:45 Chloride 104 mmol/L (98-107) 10/13/18 05:45 Carbon Dioxide 27 mmol/L (21-32) 10/13/18 05:45 Anion Gap 10 MMOL/L (8-16) 10/13/18 05:45 BUN 12 mg/dL (7-18) 10/13/18 05:45 Creatinine 0.9 mg/dL (0.55-1.3) 10/13/18 05:45 Creat Clearance w eGFR > 60 (>60) 10/13/18 05:45 POC Glucometer 97 UNITS (80-120) 10/14/18 05:52 Random Glucose 123 mg/dL (74-106) H 10/13/18 05:45 Calcium 9.1 mg/dL (8.5-10.1) 10/13/18 05:45 Total Bilirubin 0.7 mg/dL (0.2-1) 10/13/18 05:45 AST 10 U/L (15-37) L 10/13/18 05:45 ALT 21 U/L (13-61) 10/13/18 05:45 Alkaline Phosphatase 78 U/L (45-117) 10/13/18 05:45 Total Protein 7.0 g/dl (6.4-8.2) 10/13/18 05:45 Albumin 3.7 g/dl (3.4-5.0) 10/13/18 05:45 RPR Titer Nonreactive (NONREACTIVE) 10/13/18 05:45 lab noted Assessment: 10/14/18 11:23 withdrawal sx Plan: continue detox
[2018-10-14] MEDS: ARTIFICIAL TEARS (POLYVINYL ALCOHOL) OPTH DROPS OU SCH ×3 (13:42→21:34)
[2018-10-14] MEDS: MINERAL OIL/PETROLAT/WATER TOPICAL CREAM 113 GM JAR TP SCH (14:21)
[2018-10-14] MEDS: chlordiazePOXIDE 5 MG CAPSULE PO SCH ×2 (17:45→22:26)
[2018-10-14] MEDS: BACITRACIN 3.5 GM OPTHALMIC OINT TUBE OD SCH ×2 (19:25→21:34)
[2018-10-14] MEDS: THIAMINE HCL 100 MG TABLET (FP) PO SCH (22:26)
[2018-10-14] MEDS: ATORVASTATIN CA 20 MG TABLET (FP) PO SCH (22:26)
--- NOTE | 2018-10-15 00:03 | PN ---
[facility] Progress Note Note: Differences in patient order for route and dose instruction for Bacitracin Ophthalmic ointment rectified
[2018-10-15] MEDS: BACITRACIN 3.5 GM OPTHALMIC OINT TUBE OU SCH ×5 (00:14→13:00)
[2018-10-15] MEDS: chlordiazePOXIDE 5 MG CAPSULE PO SCH ×2 (05:30→10:48)
[2018-10-15] MEDS: metFORMIN HCL 500 MG TABLET (FP) PO SCH ×2 (06:21→16:30)
[2018-10-15] MEDS: PRENATAL VITAMINS W/ FOLIC ACID TABLET (FP) PO SCH (10:48)
[2018-10-15] MEDS: METHADONE HCL 5 MG TABLET (FOR DETOX USE ONLY) PO SCH (10:48)
[2018-10-15] MEDS: ASPIRIN 81 MG CHEWABLE TABLETS PO SCH (10:48)
[2018-10-15] MEDS: NICOTINE 14 MG/24 HOURS TOPICAL PATCH TD SCH (10:48)
[2018-10-15] MEDS: TIMOLOL 0.5% OPHTHALMIC SOL 5 ML BOTTLE OU SCH ×2 (10:51→22:38)
[2018-10-15] MEDS: ARTIFICIAL TEARS (POLYVINYL ALCOHOL) OPTH DROPS OU SCH ×4 (10:51→22:33)
[2018-10-15] MEDS: MINERAL OIL/PETROLAT/WATER TOPICAL CREAM 113 GM JAR TP SCH (10:52)
[2018-10-15] MEDS: BRIMONIDINE TARTRATE 0.1% OPHTHALMIC 5 ML BOTTLE OU SCH ×2 (10:52→22:38)
--- NOTE | 2018-10-15 16:08 | PN ---
S Progress Note (SOAP) Subjective: Anxious, Constipation. Patient reports "Redness" in bilateral eyes for last few days. Patient denies pain or recent change in vision in either eye. Patient has history of Glaucoma, for which he takes medications. Objective: PATIENT A & O X 3, OBSERVED AMBULATING ON UNIT. IN NO ACUTE DISTRESS. ERYTHEMA NOTED IN SCLERA OF BILATERAL EYES. NO DISCHARGE NOTED FROM EITHER EYE. NO ERYTHEMA OR SWELLING NOTED IN AREAS SURROUNDING EITHER EYE. 10/15/18 16:02 Vital Signs Temperature 97.4 F L 10/15/18 13:09 Pulse Rate 79 10/15/18 13:09 Respiratory Rate 18 10/15/18 13:09 Blood Pressure 111/71 10/15/18 13:09 O2 Sat by Pulse Oximetry (%) Laboratory Tests 10/12/18 10/12/18 10/13/18 14:28 16:32 05:45 WBC 6.2 RBC 3.89 L Hgb 13.2 Hct 41.3 MCV 106.3 H MCH 34.1 H MCHC 32.1 RDW 13.3 Plt Count 257 D MPV 9.9 Sodium Potassium Chloride Carbon Dioxide Anion Gap BUN Creatinine Creat Clearance w eGFR POC Glucometer 270 181 Random Glucose Calcium Total Bilirubin AST ALT Alkaline Phosphatase Total Protein Albumin RPR Titer 10/13/18 10/13/18 10/13/18 05:45 05:45 06:21 WBC RBC Hgb Hct MCV MCH MCHC RDW Plt Count MPV Sodium 141 Potassium 4.4 Chloride 104 Carbon Dioxide 27 Anion Gap 10 BUN 12 Creatinine 0.9 Creat Clearance w eGFR > 60 POC Glucometer 178 Random Glucose 123 H Calcium 9.1 Total Bilirubin 0.7 AST 10 L ALT 21 Alkaline Phosphatase 78 Total Protein 7.0 Albumin 3.7 RPR Titer Nonreactive 10/13/18 10/14/18 10/14/18 16:27 05:52 15:55 WBC RBC Hgb Hct MCV MCH MCHC RDW Plt Count MPV Sodium Potassium Chloride Carbon Dioxide Anion Gap BUN Creatinine Creat Clearance w eGFR POC Glucometer 137 97 100 Random Glucose Calcium Total Bilirubin AST ALT Alkaline Phosphatase Total Protein Albumin RPR Titer 10/15/18 05:28 WBC RBC Hgb Hct MCV MCH MCHC RDW Plt Count MPV Sodium Potassium Chloride Carbon Dioxide Anion Gap BUN Creatinine Creat Clearance w eGFR POC Glucometer 155 Random Glucose Calcium Total Bilirubin AST ALT Alkaline Phosphatase Total Protein Albumin RPR Titer LABS NOTED. Assessment: 10/15/18 16:03 WITHDRAWAL SYMPTOMS. Plan: CONTINUE DETOX. BACITRACIN OPTHALMIC OINTMENT D/C'D. UNCLEAR FROM PREVIOUS NOTES WHY THIS MEDICATION WAS ORDERED FOR PATIENT. THIS MEDICATION NOT LISTED ONE OF PATIENT 'S HOME MEDICATIONS ON ADMISSION. WILL OBSERVE FOR EFFECT. CONTINUE TIMOPTIC AND ALPHAGAN DROPS PATIENT WAS PRESCRIBED THOSE PRIOR TO THIS DETOX ADMISSION. ADVISED PATIENT TO FOLLOW-UP WITH OPTHALMOLOGIST (PATIENT UNABLE TO RECALL NAME OF OPTHALMOLOGIST AT THIS TIME) SOON POSSIBLE AFTER DISCHARGE FROM DETOX UNIT FOR FURTHER EVALUATION OF ERYTHEMA AFFECTING BILATERAL EYES. PATIENT ALSO ADVISED TO AVOID CONTACT BETWEEN HANDS AND EYES AND TO THOROUGHLY WASH HANDS BEFORE AND AFTER CONTACT WITH EYES IF CONTACT IS NECESSARY. PATIENT VERBALIZED UNDERSTANDING OF RECOMMENDATIONS.
[2018-10-15] MEDS: chlordiazePOXIDE HCL 10 MG CAPSULE PO SCH ×2 (17:17→22:33)
--- NOTE | 2018-10-15 21:47 | PN ---
[facility] Progress Note Note: Increased erythema bilateral sclera w/ some itching. No discharge. Denies foreign body sensation. Denies visual changes. Moderate nasal congestion noted. Encourage Actifed nasal decongestant. F/u as needed.
[2018-10-15] MEDS: THIAMINE HCL 100 MG TABLET (FP) PO SCH (22:33)
[2018-10-15] MEDS: ATORVASTATIN CA 20 MG TABLET (FP) PO SCH (22:33)
[2018-10-16] MEDS: metFORMIN HCL 500 MG TABLET (FP) PO SCH ×2 (06:17→17:29)
[2018-10-16] MEDS: chlordiazePOXIDE HCL 10 MG CAPSULE PO SCH ×2 (06:17→10:21)
[2018-10-16] MEDS: BACITRACIN 3.5 GM OPTHALMIC OINT TUBE OU SCH (07:51)
[2018-10-16] MEDS ORDERED: METHADONE HCL 10 MG TABLET (FOR DETOX USE ONLY) PO SCH (10:00)
[2018-10-16] MEDS: ARTIFICIAL TEARS (POLYVINYL ALCOHOL) OPTH DROPS OU SCH ×4 (10:20→23:13)
[2018-10-16] MEDS: NICOTINE 14 MG/24 HOURS TOPICAL PATCH TD SCH (10:21)
[2018-10-16] MEDS: PRENATAL VITAMINS W/ FOLIC ACID TABLET (FP) PO SCH (10:21)
[2018-10-16] MEDS: TIMOLOL 0.5% OPHTHALMIC SOL 5 ML BOTTLE OU SCH ×2 (10:21→22:49)
[2018-10-16] MEDS: ASPIRIN 81 MG CHEWABLE TABLETS PO SCH (10:21)
[2018-10-16] MEDS: BRIMONIDINE TARTRATE 0.1% OPHTHALMIC 5 ML BOTTLE OU SCH ×2 (10:21→22:48)
[2018-10-16] MEDS: MINERAL OIL/PETROLAT/WATER TOPICAL CREAM 113 GM JAR TP SCH (10:54)
--- NOTE | 2018-10-16 15:50 | PN ---
S Progress Note (SOAP) Subjective: Fatigue, Constipation. Objective: PATIENT A & O X 3, OBSERVED AMBULATING ON UNIT. IN NO ACUTE DISTRESS. SLIGHTLY LESS ERYTHEMA NOTED IN SCLERA OF BILATERAL EYES TODAY OPPOSED TO YESTERDAY. PATIENT DENIES PAIN IN BILATERAL EYES AND RECENT CHANGE IN VISION. PATIENT AGAIN ADVISED TO FOLLOW-UP WITH OPTHALMOLOGIST AFTER DISCHARGE FROM DETOX UNIT FOR FURTHER EVALUATION OF BILATERAL EYE ERYTHEMA. PATIENT VERBALIZED UNDERSTANDING OF RECOMMENDATION. 10/16/18 15:46 Vital Signs Temperature 98.4 F 10/16/18 13:47 Pulse Rate 81 10/16/18 13:47 Respiratory Rate 18 10/16/18 13:47 Blood Pressure 103/66 10/16/18 13:47 O2 Sat by Pulse Oximetry (%) Laboratory Tests 10/12/18 10/12/18 10/13/18 14:28 16:32 05:45 WBC 6.2 RBC 3.89 L Hgb 13.2 Hct 41.3 MCV 106.3 H MCH 34.1 H MCHC 32.1 RDW 13.3 Plt Count 257 D MPV 9.9 Sodium Potassium Chloride Carbon Dioxide Anion Gap BUN Creatinine Creat Clearance w eGFR POC Glucometer 270 181 Random Glucose Calcium Total Bilirubin AST ALT Alkaline Phosphatase Total Protein Albumin RPR Titer 10/13/18 10/13/18 10/13/18 05:45 05:45 06:21 WBC RBC Hgb Hct MCV MCH MCHC RDW Plt Count MPV Sodium 141 Potassium 4.4 Chloride 104 Carbon Dioxide 27 Anion Gap 10 BUN 12 Creatinine 0.9 Creat Clearance w eGFR > 60 POC Glucometer 178 Random Glucose 123 H Calcium 9.1 Total Bilirubin 0.7 AST 10 L ALT 21 Alkaline Phosphatase 78 Total Protein 7.0 Albumin 3.7 RPR Titer Nonreactive 10/13/18 10/14/18 10/14/18 16:27 05:52 15:55 WBC RBC Hgb Hct MCV MCH MCHC RDW Plt Count MPV Sodium Potassium Chloride Carbon Dioxide Anion Gap BUN Creatinine Creat Clearance w eGFR POC Glucometer 137 97 100 Random Glucose Calcium Total Bilirubin AST ALT Alkaline Phosphatase Total Protein Albumin RPR Titer 10/15/18 10/15/18 10/16/18 05:28 16:31 06:18 WBC RBC Hgb Hct MCV MCH MCHC RDW Plt Count MPV Sodium Potassium Chloride Carbon Dioxide Anion Gap BUN Creatinine Creat Clearance w eGFR POC Glucometer 155 116 98 Random Glucose Calcium Total Bilirubin AST ALT Alkaline Phosphatase Total Protein Albumin RPR Titer LABS NOTED. 10/16/18 15:47 10/16/18 15:50 Assessment: 10/16/18 15:46 WITHDRAWAL SYMPTOMS. Plan: CONTINUE DETOX. PATIENT SCHEDULED FOR D/C TOMORROW .
[2018-10-16] MEDS: ATORVASTATIN CA 20 MG TABLET (FP) PO SCH (22:48)
[2018-10-16] MEDS: THIAMINE HCL 100 MG TABLET (FP) PO SCH (22:48)
[2018-10-17] MEDS: MAGNESIUM HYDROX 2400MG/30ML ORAL SUSPENSION 30 ML CUP PO PRN (05:29)
[2018-10-17] MEDS ORDERED: METHADONE HCL 5 MG TABLET (FOR DETOX USE ONLY) PO SCH (06:00)
[2018-10-17 06:30] VITALS: BP 111/68; PULSE 70; TEMP 97.2
[2018-10-17] MEDS: metFORMIN HCL 500 MG TABLET (FP) PO SCH (06:41)
--- NOTE | 2018-10-17 12:15 | DS ---
[facility] Detox Discharge Summary Admission Date: 10/12/18 Discharge Date: 10/17/18 - History Present History: Alcohol Dependence, Cannabis Dependence, Cocaine Dependence, Opioid Dependence Additional Comments: Patient completed detox successfully and was discharged safely. Patient is A, A , Ox3, in nad, vss, ambulatory. Patient instructed to follow up with his PCP within 1-2 weeks. Pertinent Past History: DMT2 Asthma Nicotine dependence - Physical Exam Results Vital Signs: Vital Signs Temperature 97.2 F L 10/17/18 06:29 Pulse Rate 70 10/17/18 06:29 Respiratory Rate 18 10/17/18 06:29 Blood Pressure 111/68 10/17/18 06:29 O2 Sat by Pulse Oximetry (%) Pertinent Admission Physical Exam Findings: Withdrawal symptoms Laboratory Tests 10/12/18 10/12/18 10/13/18 14:28 16:32 05:45 WBC 6.2 RBC 3.89 L Hgb 13.2 Hct 41.3 MCV 106.3 H MCH 34.1 H MCHC 32.1 RDW 13.3 Plt Count 257 D MPV 9.9 Sodium Potassium Chloride Carbon Dioxide Anion Gap BUN Creatinine Creat Clearance w eGFR POC Glucometer 270 181 Random Glucose Calcium Total Bilirubin AST ALT Alkaline Phosphatase Total Protein Albumin RPR Titer 10/13/18 10/13/18 10/13/18 05:45 05:45 06:21 WBC RBC Hgb Hct MCV MCH MCHC RDW Plt Count MPV Sodium 141 Potassium 4.4 Chloride 104 Carbon Dioxide 27 Anion Gap 10 BUN 12 Creatinine 0.9 Creat Clearance w eGFR > 60 POC Glucometer 178 Random Glucose 123 H Calcium 9.1 Total Bilirubin 0.7 AST 10 L ALT 21 Alkaline Phosphatase 78 Total Protein 7.0 Albumin 3.7 RPR Titer Nonreactive 10/13/18 10/14/18 10/14/18 16:27 05:52 15:55 WBC RBC Hgb Hct MCV MCH MCHC RDW Plt Count MPV Sodium Potassium Chloride Carbon Dioxide Anion Gap BUN Creatinine Creat Clearance w eGFR POC Glucometer 137 97 100 Random Glucose Calcium Total Bilirubin AST ALT Alkaline Phosphatase Total Protein Albumin RPR Titer 10/15/18 10/15/18 10/16/18 05:28 16:31 06:18 WBC RBC Hgb Hct MCV MCH MCHC RDW Plt Count MPV Sodium Potassium Chloride Carbon Dioxide Anion Gap BUN Creatinine Creat Clearance w eGFR POC Glucometer 155 116 98 Random Glucose Calcium Total Bilirubin AST ALT Alkaline Phosphatase Total Protein Albumin RPR Titer 10/16/18 10/17/18 16:40 05:26 WBC RBC Hgb Hct MCV MCH MCHC RDW Plt Count MPV Sodium Potassium Chloride Carbon Dioxide Anion Gap BUN Creatinine Creat Clearance w eGFR POC Glucometer 114 104 Random Glucose Calcium Total Bilirubin AST ALT Alkaline Phosphatase Total Protein Albumin RPR Titer Labs reviewed - Treatment Hospital Course: Detox Protocol Followed, Detoxed Safely, Responded well, Discharged Condition Good - Medication Discharge Medications: Ambulatory Orders Aspirin [ASA -] 81 mg PO DAILY 05/18/18 Meloxicam [Mobic] 15 mg PO DAILY 05/18/18 Simvastatin [Zocor -] 40 mg PO HS 05/18/18 Brimonidine Tartrate [Alphagan P 0.1% -] 1 drop OU BID #1 bottle 08/03/18 Metformin HCl [Glucophage] 1,000 mg PO BID #60 tablet 08/03/18 Timolol Maleate 0.5% Gfs [Timoptic Xe 0.5%] 1 drop OU BID #1 bottle 08/03/18 - Diagnosis (1) Alcohol dependence with uncomplicated withdrawal Status: Acute (2) Asthma Status: Chronic (3) Opioid dependence with withdrawal Status: Acute (4) Cocaine dependence Status: Chronic Qualifiers: Substance use status: uncomplicated Qualified Code(s): F14.20 - Cocaine dependence, uncomplicated (5) DM2 (diabetes mellitus, type 2) Status: Chronic Qualifiers: Diabetes mellitus long term care phlebotomist insulin use: without long term care phlebotomist use Diabetes mellitus complication status: with unspecified complications Qualified Code(s) : E11.8 - Type 2 diabetes mellitus with unspecified complications (6) Marijuana dependence Status: Chronic (7) Nicotine dependence Status: Chronic Qualifiers: Nicotine product type: cigarettes Substance use status: in withdrawal Qualified Code(s): F17.213 - Nicotine dependence, cigarettes, with withdrawal - AMA Did Patient Leave Against Medical Advice: No (F/U with PCP within 1-2 weeks)
== END 2018-10-17 09:04 | disposition home or self-care (01) | DRG 773 ==
LOC: YASAS 11:37 → Y3N 14:34
PROC: HZ2ZZZZ Detoxification Services for Substance Abuse Treatment (ICD-10-PCS; principal; 2018-10-12)
DX: F11.23 Opioid dependence with withdrawal (principal); F10.230 Alcohol dependence with withdrawal, uncomplicated; F14.20 Cocaine dependence, uncomplicated; F12.20 Cannabis dependence, uncomplicated; F17.213 Nicotine dependence, cigarettes, with withdrawal; R55 Syncope and collapse; G62.9 Polyneuropathy, unspecified; E78.5 Hyperlipidemia, unspecified; J45.909 Unspecified asthma, uncomplicated; E11.9 Type 2 diabetes mellitus without complications; Z79.84 Long term (current) use of oral hypoglycemic drugs; H57.89 Other specified disorders of eye and adnexa; H40.9 Unspecified glaucoma
CPT/HCPCS: 36415; 80053; 82962; 85027; 86593

== ENCOUNTER 2019-04-25 11:33 | Inpatient (IN) | payer OTHER ==
[2019-04-25 13:54] VITALS: BMI 24.2
[2019-04-25] MEDS ORDERED: METHADONE HCL 10 MG TABLET (FOR DETOX USE ONLY) PO ONE (13:55)
--- NOTE | 2019-04-25 14:22 | HP ---
COWS - Scale Resting Pulse: 0= [place] 80 or Below Sweatin=Flushed/Facial Moisture Restless Observation: 1= Difficult to Sit Still Pupil Size: 1= Pupils >than Normal Bone or Joint Aches: 2= Severe Diffuse Aches Runny Nose/ Eye Tearin= Runny Nose/Eyes GI Upset > 30mins: 1= Stomach Cramp Tremor Observation: 1= Tremor Fine, Not Seen Yawning Observation: 0= None Anxiety or Irritability: 2=Irritable/Anxious Goose Flesh Skin: 0=Smooth Skin COWS Score: 12 CIWA Score Nausea/Vomitin-No Nausea/No Vomiting Muscle Tremors: 1-None Visible, but Fine Anxiety: 3 Agitation: 1-Slight > Activity Paroxysmal Sweats: 3 Orientation: 2-Disoriented Date<2 days Tacttile Disturbances: 2-Mild Itch/Numbness/Burn Auditory Disturbances: 0-None Visual Disturbances: 0-None Headache: 2-Mild CIWA-Ar Total Score: 14 - Admission Criteria [facility]ASAS Guidelines: Admission for Medically Managed Detox: Requires at least one of the followin. CIWA greater than 12 2. Seizures within the past 24 hours 3. Delirium tremens within the past 24 hours 4. Hallucinations within the past 24 hours 5. Acute intervention needed for co occurring medical disorder 6. Acute intervention needed for co occurring psychiatric disorder 7. Severe withdrawal that cannot be handled at a lower level of care (continued vomiting, continued diarrhea, abnormal vital signs) requiring intravenous medication and/or fluids 8. Admission ROS [facility] Chief Complaint: ETOH/HEROIN WITHDRAWAL SYMPTOMS Allergies/Adverse Reactions: Allergies Allergy/AdvReac Type Severity Reaction Status Date / Time No Known Allergies Allergy Verified 04/25/19 13:36 History of Present Illness: PATIENT IS KNOWN TO [facility] DUE TO PREVIOUS ADMISSIONS WITH LAST ADMISSION 10/2018. PATIENT HAS LONG STANDING HX OF ETOH USE SINCE AGE 15. CURRENTLY DRINKS 4-5 CANS OF BEER DAILY, LAST DRINK THIS AM. PATIENT DENIES HX OF SEIZURES AND DT. + HX OF BLACKOUTS AND EYE OPENERS. PATIENT ALSO HAS SNIFFED HEROIN X 2 YEARS. SNIFFS 3-4 BAGS DAILY, LAST TIME HE USED WAS EARLY THIS MORNING (3AM). PATIENT DENIES IVDA AND HX OF OVERDOSE. PMH INCLUDES DM, HLD, GLAUCOMA, DEPRESSION AND OA. PATIENT DENIES SI/HI AND SUICIDE ATTEMPTS. Exam Limitations: No Limitations - Ebola screening Have you traveled outside of the country in the last 21 days: No Have you had contact with anyone from an Ebola affected area: No Have you been sick,other than usual withdrawal symptoms: No Do you have a fever: No - Review of Systems Constitutional: Night Sweats, Changes in sleep, Unintentional Wgt. Loss EENT: reports: Tearing, Hearing Loss (DUE TO LEFT EAR INFECTION), Nose Congestion Respiratory: reports: Cough Cardiac: reports: No Symptoms Reported GI: reports: Poor Fluid Intake, Abdominal cramping : reports: No Symptoms Reported Musculoskeletal: reports: Back Pain, Joint Pain, Muscle Pain Neuro: reports: Headache Endocrine: reports: Unexplained Weight Loss, Change in Weight Hematology: reports: No Symptoms Reported Psychiatric: reports: Anxious, Depressed (FORGETFUL WITH DATE) Patient History - Patient Medical History Hx Anemia: No Hx Asthma: No Hx Chronic Obstructive Pulmonary Disease (COPD): No Hx Cancer: No Hx Cardiac Disorders: No Hx Congestive Heart Failure: No Hx Hypertension: No Hx Hypercholesterolemia: Yes (on med) Hx Pacemaker: No HX Cerebrovascular Accident: No Hx Seizures: No Hx Dementia: No Hx Diabetes: Yes (TypeII) Hx Gastrointestinal Disorders: No Hx Liver Disease: No Hx Genitourinary Disorders: No Hx Sexually Transmitted Disorders: No Hx Renal Disease (ESRD): No Hx Thyroid Disease: No Hx Human Immunodeficiency Virus (HIV): No (last 06/22 negative) Hx Hepatitis C: No Hx Depression: Yes Hx Suicide Attempt: No Hx Bipolar Disorder: No Hx Schizophrenia: No Other Medical History: GLAUCOMA - Patient Surgical History Past Surgical History: No Hx Neurologic Surgery: No Hx Cataract Extraction: No Hx Cardiac Surgery: No Hx Lung Surgery: No Hx Breast Surgery: No Hx Breast Biopsy: No Hx Abdominal Surgery: No Hx Appendectomy: No Hx Cholecystectomy: No Hx Genitourinary Surgery: No Hx Orthopedic Surgery: No Anesthesia Reaction: No - PPD History Previous Implant?: Yes Documented Results: Negative w/proof Date: 05/20/18 Results: 0 mm PPD to be Administered?: No - Smoking Cessation Smoking history: Current every day smoker Have you smoked in the past 12 months: Yes Aproximately how many cigarettes per day: 10 Hx Chewing Tobacco Use: No Initiated information on smoking cessation: Yes 'Breaking Loose' booklet given: 04/25/19 - Substance & Tx. History Hx Alcohol Use: Yes Hx Substance Use: Yes Substance Use Type: Alcohol, Cocaine, Heroin, Marijuana - Substances abused Alcohol Substance route: Oral Frequency: Daily Amount used: 3-4 12 Ounce of beer Age of first use: 15 Date of last use: 04/25/19 Heroin Substance route: Inhalation Frequency: Daily Amount used: 1-2 Age of first use: 61 Date of last use: 04/25/19 Family Disease History - Family Disease History Family Disease History: Other: Mother (alcohol,) Admission Physical Exam [facility] - Vital Signs Vital Signs: Vital Signs - 24 hr 04/25/19 13:26 Temperature 97.3 F L Pulse Rate 16 L Respiratory 65 H Rate Blood Pressure 166/82 - Physical General Appearance: Yes: Nourished, Thin, Anxious HEENTM: Yes: EOMI, Hearing grossly Normal, Normocephalic, Normal Voice, KELVIN, Pharynx Normal, Nasal Congestion, Other (DX WITH LEFT EAR INFECTION IN ER , DISCHARGED WITH CIPRO EAR GTTS) Respiratory: Yes: Chest Non-Tender, Lungs Clear, Normal Breath Sounds, No Respiratory Distress, No Accessory Muscle Use Neck: Yes: No masses,lesions,Nodules, Supple, Trachea in good position Breast: Yes: Breast Exam Deferred Cardiology: Yes: Regular Rhythm, Regular Rate, S1, S2 Abdominal: Yes: Normal Bowel Sounds, Non Tender, Soft Genitourinary: Yes: Within Normal Limits Back: Yes: Normal Inspection, Muscle Spasm Musculoskeletal: Yes: full range of Motion, Gait Steady, Back pain, Muscle Pain Extremities: Yes: Normal Inspection, Normal Range of Motion, Non-Tender, Tremors (MILDLY FELT) Neurological: Yes: resin mixer II-XII NML intact, Fully Oriented, Alert, Motor Strength 5/5, Normal Response, Depressed Affect Integumentary: Yes: Normal Color, Dry, Warm Lymphatic: Yes: Within Normal Limits - Diagnostic (1) Diabetes 1.5, managed as type 2 Current Visit: Yes Status: Chronic (2) Alcohol dependence with uncomplicated withdrawal Current Visit: No Status: Acute (3) Glaucoma Current Visit: No Status: Chronic Qualifiers: Glaucoma type: unspecified Laterality: bilateral Qualified Code(s): H40.9 - Unspecified glaucoma (4) Opioid dependence with withdrawal Current Visit: Yes Status: Acute (5) Cocaine dependence Current Visit: Yes Status: Chronic Qualifiers: Substance use status: uncomplicated Qualified Code(s): F14.20 - Cocaine dependence, uncomplicated (6) Marijuana dependence Current Visit: Yes Status: Chronic (7) Nicotine dependence Current Visit: Yes Status: Chronic Qualifiers: Nicotine product type: cigarettes Substance use status: in withdrawal Qualified Code(s): F17.213 - Nicotine dependence, cigarettes, with withdrawal Cleared for Admission S - Detox or Rehab [facility] Level of Care: Medically Managed Detox Regimen/Protocol: Methadone/Librium Breathalyzer - Breathalyzer Breathalyzer: 0 Urine Drug Screen - Test Device Lot number: [id number] Expiration date: 02/01/21 - Control Is test valid?: Yes - Results Drug screen NEGATIVE: No Urine drug screen results: THC-Marijuana, CANDE-Cocaine, FEN-Fentanyl, MOP-Opiates Inpatient Rehab Admission - Rehab Decision to Admit Inpatient rehab admission?: No
[2019-04-25] MEDS ORDERED: METHOCARBAMOL 500 MG TABLET PO PRN (14:31)
[2019-04-25] MEDS ORDERED: MAGNESIUM HYDROX 2400MG/30ML ORAL SUSPENSION 30 ML CUP PO PRN (14:31)
[2019-04-25] MEDS ORDERED: IBUPROFEN 400 MG TABLET (FP) PO PRN (14:31)
[2019-04-25] MEDS ORDERED: NICOTINE POLACRILEX 2 MG GUM BUC PRN (14:31)
[2019-04-25] MEDS ORDERED: P-EPHED 60MG/TRIPROLIDI 2.5MG TABLET PO PRN (14:31)
[2019-04-25] MEDS ORDERED: BISMUTH SUBSALICYLATE 262 MG/15 ML BTL PO PRN (14:31)
[2019-04-25] MEDS ORDERED: MENTHOL/PHENOL 1 EACH UD MM PRN (14:31)
[2019-04-25] MEDS ORDERED: MAGNESIUM CITRATE 300 ML BOTTLE PO PRN (14:31)
[2019-04-25] MEDS ORDERED: MAG HYDROX/AL HYDROX/SIMETH 30 ML UNIT-DOSE CUP PO PRN (14:31)
[2019-04-25] MEDS ORDERED: ONDANSETRON *ODT* 4 MG TABLET SL PRN (14:31)
[2019-04-25] MEDS ORDERED: ACETAMINOPHEN 325 MG TABLET (FP) PO PRN ×2 (14:31)
[2019-04-25] MEDS ORDERED: hydrOXYzine HCL 25 MG TABLET (FP) PO PRN (14:31)
[2019-04-25] MEDS ORDERED: chlordiazePOXIDE HCL 10 MG CAPSULE PO PRN (14:36)
[2019-04-25] MEDS ORDERED: NALOXONE HCL 0.4 MG/ML VIAL IM PRN (14:36)
[2019-04-25 16:32] LABS: HEMATOCRIT 36.9 % (35.4-49); HEMOGLOBIN 12.4 GM/dL (11.7-16.9); MCH 36.3 pg (25.7-33.7); MCHC 33.6 g/dl (32.0-35.9); MEAN PLT VOLUME 8.8 fl (7.5-11.1); PLATELET COUNT 215 K/MM3 (134-434); RBC 3.42 M/mm3 (4.00-5.60); RDW 13.1 % (11.9-15.9); WHITE BLOOD COUNT 6.3 K/mm3 (4.0-10.0)
[2019-04-25 16:48] LABS: ALBUMIN 3.5 g/dl (3.4-5.0); BILIRUBIN,TOTAL 0.8 mg/dL (0.2-1); BLOOD UREA NITROGEN 9.7 mg/dL (7-18); CREATININE 0.9 mg/dL (0.55-1.3); POTASSIUM 4.1 mmol/L (3.5-5.1); TOT PROT 6.6 g/dl (6.4-8.2)
[2019-04-25] MEDS: metFORMIN HCL 500 MG TABLET (FP) PO SCH (17:24)
[2019-04-25] MEDS: ATORVASTATIN CA 20 MG TABLET (FP) PO SCH (21:14)
[2019-04-25] MEDS: OFLOXACIN 0.3% OTIC SOLUTION 5 ML BOTTLE AS SCH (21:14)
[2019-04-25] MEDS: THIAMINE HCL 100 MG TABLET (FP) PO SCH (21:14)
[2019-04-25] MEDS: chlordiazePOXIDE HCL 25 MG CAPSULE PO SCH (21:14)
[2019-04-25] MEDS: TIMOLOL 0.5% OPHTHALMIC SOL 5 ML BOTTLE OU SCH (21:16)
[2019-04-25] MEDS: BRIMONIDINE TARTRATE 0.1% OPHTHALMIC 5 ML BOTTLE OU SCH (21:16)
[2019-04-25] MEDS: MELATONIN 5 MG TABLETS PO PRN (21:18)
[2019-04-25] MEDS ORDERED: TIMOLOL MALEATE 0.5% GFS OPHTHALMIC SOLN 5 ML BOTTLE OU SCH (22:00)
[2019-04-25 22:02] LABS: URINE APPEARANCE TURBID; URINE BILIRUBIN NEGATIVE (NEGATIVE); URINE COLOR YELLOW; URINE GLUCOSE (UA) NEGATIVE (NEGATIVE); URINE KETONE NEGATIVE (NEGATIVE); URINE LEUK ESTERASE NEGATIVE (NEGATIVE); URINE NITRITE NEGATIVE (NEGATIVE); URINE PROTEIN NEGATIVE (NEGATIVE); URINE UROBILINOGEN 0.2 mg/dL (0.2-1.0)
[2019-04-26] MEDS: chlordiazePOXIDE HCL 25 MG CAPSULE PO SCH ×3 (06:25→22:24)
[2019-04-26] MEDS: metFORMIN HCL 500 MG TABLET (FP) PO SCH ×2 (06:25→17:16)
[2019-04-26] MEDS ORDERED: METHADONE HCL 5 MG TABLET (FOR DETOX USE ONLY) PO ONE (10:00)
[2019-04-26] MEDS: ASPIRIN 81 MG CHEWABLE TABLETS PO SCH (11:07)
[2019-04-26] MEDS: BRIMONIDINE TARTRATE 0.1% OPHTHALMIC 5 ML BOTTLE OU SCH ×2 (11:07→22:23)
[2019-04-26] MEDS: TIMOLOL 0.5% OPHTHALMIC SOL 5 ML BOTTLE OU SCH ×2 (11:09→22:43)
[2019-04-26] MEDS: OFLOXACIN 0.3% OTIC SOLUTION 5 ML BOTTLE AS SCH ×2 (11:11→22:23)
[2019-04-26] MEDS: PRENATAL VITAMINS W/ FOLIC ACID TABLET (FP) PO SCH (11:11)
[2019-04-26] MEDS: NICOTINE 21 MG/24 HOURS TOPICAL PATCH TD SCH (11:12)
--- NOTE | 2019-04-26 13:11 | PN ---
[facility] CIWA - CIWA Score Nausea/Vomitin-Mild Nausea/No Vomiting Muscle Tremors: 3 Anxiety: 2 Agitation: 2 Paroxysmal Sweats: 1-Minimal Palms Moist Orientation: 1-Uncertain about Date Tacttile Disturbances: 1-Very Mild Itch/Numbness Auditory Disturbances: 0-None Visual Disturbances: 0-None Headache: 0-None Present CIWA-Ar Total Score: 11 S COWS - Scale Resting Pulse: 0= [place] 80 or Below Sweatin= Chills/Flushing Restless Observation: 0= Sits Still Pupil Size: 0= Normal to Room Light Bone or Joint Aches: 1= Mild Discomfort Runny Nose/ Eye Tearin= Nasal Congestion GI Upset > 30mins: 2= Nausea/Diarrhea Tremor Observation of Outstretched Hands: 2= Slight Tremor Visible Yawning Observation: 2= >3x During Session Anxiety or Irritability: 2=Irritable/Anxious Goose Flesh Skin: 0=Smooth Skin COWS Score: 11 [facility] Progress Note (SOAP) Subjective: tremor anxiety restlessness Objective: 04/27/19 08:34 Vital Signs Temperature 97.7 F 04/27/19 06:24 Pulse Rate 56 L 04/27/19 06:24 Respiratory Rate 17 04/27/19 06:24 Blood Pressure 108/71 04/27/19 06:24 O2 Sat by Pulse Oximetry (%) Laboratory Last Values WBC 6.3 K/mm3 (4.0-10.0) 04/25/19 15:10 RBC 3.42 M/mm3 (4.00-5.60) L 04/25/19 15:10 Hgb 12.4 GM/dL (11.7-16.9) 04/25/19 15:10 Hct 36.9 % (35.4-49) 04/25/19 15:10 MCV 108.0 fl (80-96) H 04/25/19 15:10 MCH 36.3 pg (25.7-33.7) H 04/25/19 15:10 MCHC 33.6 g/dl (32.0-35.9) 04/25/19 15:10 RDW 13.1 % (11.9-15.9) 04/25/19 15:10 Plt Count 215 K/MM3 (134-434) 04/25/19 15:10 MPV 8.8 fl (7.5-11.1) D 04/25/19 15:10 Sodium 138 mmol/L (136-145) 04/25/19 15:10 Potassium 4.1 mmol/L (3.5-5.1) 04/25/19 15:10 Chloride 102 mmol/L (98-107) 04/25/19 15:10 Carbon Dioxide 32 mmol/L (21-32) 04/25/19 15:10 Anion Gap 4 MMOL/L (8-16) L 04/25/19 15:10 BUN 9.7 mg/dL (7-18) 04/25/19 15:10 Creatinine 0.9 mg/dL (0.55-1.3) 04/25/19 15:10 Est GFR (CKD-EPI)AfAm 106.46 04/25/19 15:10 Est GFR (CKD-EPI)NonAf 91.86 04/25/19 15:10 POC Glucometer 119 UNITS (80-120) 04/27/19 05:37 Random Glucose 138 mg/dL (74-106) H 04/25/19 15:10 Calcium 9.0 mg/dL (8.5-10.1) 04/25/19 15:10 Total Bilirubin 0.8 mg/dL (0.2-1) 04/25/19 15:10 AST 9 U/L (15-37) L 04/25/19 15:10 ALT 19 U/L (13-61) 04/25/19 15:10 Alkaline Phosphatase 65 U/L (45-117) 04/25/19 15:10 Total Protein 6.6 g/dl (6.4-8.2) 04/25/19 15:10 Albumin 3.5 g/dl (3.4-5.0) 04/25/19 15:10 Urine Color Yellow 04/25/19 15:58 Urine Appearance Turbid 04/25/19 15:58 Urine pH 5.0 (5.0-8.0) 04/25/19 15:58 Ur Specific [place] 1.024 (1.010-1.035) 04/25/19 15:58 Urine Protein Negative (NEGATIVE) 04/25/19 15:58 Urine Glucose (UA) Negative (NEGATIVE) 04/25/19 15:58 Urine Ketones Negative (NEGATIVE) 04/25/19 15:58 Urine Blood Negative (NEGATIVE) 04/25/19 15:58 Urine Nitrite Negative (NEGATIVE) 04/25/19 15:58 Urine Bilirubin Negative (NEGATIVE) 04/25/19 15:58 Urine Urobilinogen 0.2 mg/dL (0.2-1.0) 04/25/19 15:58 Ur Leukocyte Esterase Negative (NEGATIVE) 04/25/19 15:58 RPR Titer Nonreactive (NONREACTIVE) 04/25/19 15:10 lab noted Assessment: 04/27/19 08:35 alcohol and opiate withdrawal sx Plan: continue alcohol and opiate detox
[2019-04-26] MEDS ORDERED: CIPROFLOXACIN 0.3% EYE DROPS 5 ML BOTTLE OU SCH (13:15)
[2019-04-26] MEDS: amLODIPine BESYLATE 5 MG TABLET (FP) PO SCH (13:58)
--- NOTE | 2019-04-26 14:30 | CONSULT ---
[facility] Psychiatric Consult - Data Date of interview: 04/26/19 Admission source: [facility] Identifying data: Another admission to [facility] for this 63 y/o AA male self- referred for detoxification treatment (alcohol, heroin, cocaine). Admitted to [address] [place] [address]. Patient is , a father of eight, domiciled (lives intermittently with sister), unemployed (disabled) and supported on SSI benefits. Substance Abuse History: Discussed in this session. Details in current [facility] report as follows : Smoking history: Current every day smoker. Have you smoked in the past 12 months: Yes. Aproximately how many cigarettes per day: 10. Hx Chewing Tobacco Use: No. Initiated information on smoking cessation: Yes. ' Breaking Loose' booklet given: 04/25/19. - Substance & Tx. History. Hx Alcohol Use: Yes. Hx Substance Use: Yes. Substance Use Type: Alcohol, Cocaine , Heroin, Marijuana. - Substances abused. Alcohol. Substance route: Oral. Frequency: Daily. Amount used: 3-4 12 Ounce of beer. Age of first use: 15. Date of last use: 04/25/19. Heroin. Substance route: Inhalation. Frequency : Daily. Amount used: 1-2. Age of first use: 61. Date of last use: 04/25/19 Medical History: Significant for unsteady gait, diabetes mellitus, bronchial asthma, hearing impediment, glaucoma and dyslipidemia. Psychiatric History: Patient denies. Physical/Sexual Abuse/Trauma History: Patient denies. Additional Comment: Urine drug screen results: THC-Marijuana, CANDE-Cocaine, FEN- Fentanyl, MOP-Opiates. Noted. Mental Status Exam - Mental Status Exam Alert and Oriented to: Time, Place, Person Cognitive Function: Good Patient Appearance: Well Groomed Mood: Irritable Affect: Mood Congruent Patient Behavior: Appropriate, Cooperative Speech Pattern: Clear, Appropriate Voice Loudness: Normal Thought Process: Goal Oriented Thought Disorder: Not Present Hallucinations: Denies Suicidal Ideation: Denies Homicidal Ideation: Denies Insight/Judgement: Poor Sleep: Well Appetite: Good Gait/Station: Other (unsteady) Psychiatric Findings - Problem List ([place] 1, 2,3) (1) Alcohol dependence with withdrawal Current Visit: Yes Status: Acute Qualifiers: Complication of substance-induced condition: uncomplicated Qualified Code(s ): F10.230 - Alcohol dependence with withdrawal, uncomplicated (2) Opioid dependence with withdrawal Current Visit: Yes Status: Acute (3) Cocaine dependence Current Visit: Yes Status: Chronic Qualifiers: Substance use status: uncomplicated Qualified Code(s): F14.20 - Cocaine dependence, uncomplicated (4) Marijuana dependence Current Visit: Yes Status: Chronic (5) Nicotine dependence Current Visit: Yes Status: Chronic Qualifiers: Nicotine product type: cigarettes Substance use status: in withdrawal Qualified Code(s): F17.213 - Nicotine dependence, cigarettes, with withdrawal (6) Substance induced mood disorder Current Visit: Yes Status: Chronic - Initial Treatment Plan Initial Treatment Plan: Psychoeducation. Sleep hygiene. Detoxification. Observation.
[2019-04-26] MEDS: ATORVASTATIN CA 20 MG TABLET (FP) PO SCH (22:24)
[2019-04-26] MEDS: AMMONIUM LACTATE 12% LOTION 225 GM BOTTLE TP SCH (22:24)
[2019-04-26] MEDS: MELATONIN 5 MG TABLETS PO PRN (22:24)
[2019-04-26] MEDS: THIAMINE HCL 100 MG TABLET (FP) PO SCH (22:24)
[2019-04-27] MEDS: chlordiazePOXIDE 5 MG CAPSULE PO SCH ×3 (05:33→21:12)
[2019-04-27] MEDS: metFORMIN HCL 500 MG TABLET (FP) PO SCH ×2 (07:21→17:28)
[2019-04-27] MEDS ORDERED: METHADONE HCL 10 MG TABLET (FOR DETOX USE ONLY) PO ONE (10:00)
[2019-04-27] MEDS: amLODIPine BESYLATE 5 MG TABLET (FP) PO SCH (10:47)
[2019-04-27] MEDS: NICOTINE 21 MG/24 HOURS TOPICAL PATCH TD SCH (10:47)
[2019-04-27] MEDS: ASPIRIN 81 MG CHEWABLE TABLETS PO SCH (10:47)
[2019-04-27] MEDS: PRENATAL VITAMINS W/ FOLIC ACID TABLET (FP) PO SCH (10:47)
[2019-04-27] MEDS: BRIMONIDINE TARTRATE 0.1% OPHTHALMIC 5 ML BOTTLE OU SCH ×2 (10:49→21:15)
[2019-04-27] MEDS: TIMOLOL 0.5% OPHTHALMIC SOL 5 ML BOTTLE OU SCH ×2 (10:50→21:15)
[2019-04-27] MEDS: OFLOXACIN 0.3% OTIC SOLUTION 5 ML BOTTLE AS SCH ×2 (10:50→21:16)
[2019-04-27] MEDS: AMMONIUM LACTATE 12% LOTION 225 GM BOTTLE TP SCH ×2 (10:51→21:15)
--- NOTE | 2019-04-27 12:30 | PN ---
S CIWA - CIWA Score Nausea/Vomitin-No Nausea/No Vomiting Muscle Tremors: 2 Anxiety: 2 Agitation: 2 Paroxysmal Sweats: 1-Minimal Palms Moist Orientation: 0-Oriented Tacttile Disturbances: 0-None Auditory Disturbances: 0-None Visual Disturbances: 0-None Headache: 0-None Present CIWA-Ar Total Score: 7 [facility] COWS - Scale Resting Pulse: 0= [place] 80 or Below Sweatin= Chills/Flushing Restless Observation: 0= Sits Still Pupil Size: 0= Normal to Room Light Bone or Joint Aches: 1= Mild Discomfort Runny Nose/ Eye Tearin= Nasal Congestion GI Upset > 30mins: 1= Stomach Cramp Tremor Observation of Outstretched Hands: 1= Tremor [place], Not Seen Yawning Observation: 1= 1-2x During Session Anxiety or Irritability: 1=Feels Anxious/Irritable Goose Flesh Skin: 0=Smooth Skin COWS Score: 7 S Progress Note (SOAP) Subjective: 63 years old male admitted on 04/25/19 for acute alcohol and opiate withdrawal sx management requests of cane for legs neuropathy often observed patient ambulating on hallway without cane encourage the patient to use cane for ambulation aid Objective: 04/27/19 12:29 Vital Signs Temperature 98.0 F 04/27/19 09:06 Pulse Rate 67 04/27/19 09:06 Respiratory Rate 18 04/27/19 09:06 Blood Pressure 118/72 04/27/19 09:06 O2 Sat by Pulse Oximetry (%) Laboratory Last Values WBC 6.3 K/mm3 (4.0-10.0) 04/25/19 15:10 RBC 3.42 M/mm3 (4.00-5.60) L 04/25/19 15:10 Hgb 12.4 GM/dL (11.7-16.9) 04/25/19 15:10 Hct 36.9 % (35.4-49) 04/25/19 15:10 MCV 108.0 fl (80-96) H 04/25/19 15:10 MCH 36.3 pg (25.7-33.7) H 04/25/19 15:10 MCHC 33.6 g/dl (32.0-35.9) 04/25/19 15:10 RDW 13.1 % (11.9-15.9) 04/25/19 15:10 Plt Count 215 K/MM3 (134-434) 04/25/19 15:10 MPV 8.8 fl (7.5-11.1) D 04/25/19 15:10 Sodium 138 mmol/L (136-145) 04/25/19 15:10 Potassium 4.1 mmol/L (3.5-5.1) 04/25/19 15:10 Chloride 102 mmol/L (98-107) 04/25/19 15:10 Carbon Dioxide 32 mmol/L (21-32) 04/25/19 15:10 Anion Gap 4 MMOL/L (8-16) L 04/25/19 15:10 BUN 9.7 mg/dL (7-18) 04/25/19 15:10 Creatinine 0.9 mg/dL (0.55-1.3) 04/25/19 15:10 Est GFR (CKD-EPI)AfAm 106.46 04/25/19 15:10 Est GFR (CKD-EPI)NonAf 91.86 04/25/19 15:10 POC Glucometer 119 UNITS (80-120) 04/27/19 05:37 Random Glucose 138 mg/dL (74-106) H 04/25/19 15:10 Calcium 9.0 mg/dL (8.5-10.1) 04/25/19 15:10 Total Bilirubin 0.8 mg/dL (0.2-1) 04/25/19 15:10 AST 9 U/L (15-37) L 04/25/19 15:10 ALT 19 U/L (13-61) 04/25/19 15:10 Alkaline Phosphatase 65 U/L (45-117) 04/25/19 15:10 Total Protein 6.6 g/dl (6.4-8.2) 04/25/19 15:10 Albumin 3.5 g/dl (3.4-5.0) 04/25/19 15:10 Urine Color Yellow 04/25/19 15:58 Urine Appearance Turbid 04/25/19 15:58 Urine pH 5.0 (5.0-8.0) 04/25/19 15:58 Ur Specific [place] 1.024 (1.010-1.035) 04/25/19 15:58 Urine Protein Negative (NEGATIVE) 04/25/19 15:58 Urine Glucose (UA) Negative (NEGATIVE) 04/25/19 15:58 Urine Ketones Negative (NEGATIVE) 04/25/19 15:58 Urine Blood Negative (NEGATIVE) 04/25/19 15:58 Urine Nitrite Negative (NEGATIVE) 04/25/19 15:58 Urine Bilirubin Negative (NEGATIVE) 04/25/19 15:58 Urine Urobilinogen 0.2 mg/dL (0.2-1.0) 04/25/19 15:58 Ur Leukocyte Esterase Negative (NEGATIVE) 04/25/19 15:58 RPR Titer Nonreactive (NONREACTIVE) 04/25/19 15:10 lab noted Assessment: 04/27/19 12:30 alcohol and opiate withdrawal sx Plan: continue alcohol and opiate detox
[2019-04-27 21:10] VITALS: TEMP 96.9
[2019-04-27] MEDS: THIAMINE HCL 100 MG TABLET (FP) PO SCH (21:12)
[2019-04-27] MEDS: ATORVASTATIN CA 20 MG TABLET (FP) PO SCH (21:12)
[2019-04-27] MEDS: MELATONIN 5 MG TABLETS PO PRN (21:17)
[2019-04-28] MEDS ORDERED: chlordiazePOXIDE HCL 10 MG CAPSULE PO PRN
[2019-04-28] MEDS ORDERED: chlordiazePOXIDE HCL 10 MG CAPSULE PO SCH (05:00)
[2019-04-28] MEDS ORDERED: METHADONE HCL 5 MG TABLET (FOR DETOX USE ONLY) PO ONE (06:00)
[2019-04-28 06:14] VITALS: BP 124/73; PULSE 71
[2019-04-28] MEDS: metFORMIN HCL 500 MG TABLET (FP) PO SCH (07:57)
--- NOTE | 2019-04-28 16:47 | DS ---
[facility] Detox Discharge Summary Admission Date: 04/25/19 Discharge Date: 04/28/19 - History Additional Comments: 63 years old male admitted on 04/25/19 for alcohol and opiate withdrawal sx no complicatin throughout the detox stay patient has an appointment with printing sales representative for possible surgical correction of the glaucoma / cataract alert oriented x 3 denies dizziness no shortness of breathe - Physical Exam Results Vital Signs: Vital Signs Temperature 96.9 F L 04/28/19 06:13 Pulse Rate 71 04/28/19 06:13 Respiratory Rate 18 04/28/19 06:13 Blood Pressure 124/73 04/28/19 06:13 O2 Sat by Pulse Oximetry (%) Pertinent Admission Physical Exam Findings: alcohol and opiate withdrawal sx Laboratory Last Values WBC 6.3 K/mm3 (4.0-10.0) 04/25/19 15:10 RBC 3.42 M/mm3 (4.00-5.60) L 04/25/19 15:10 Hgb 12.4 GM/dL (11.7-16.9) 04/25/19 15:10 Hct 36.9 % (35.4-49) 04/25/19 15:10 MCV 108.0 fl (80-96) H 04/25/19 15:10 MCH 36.3 pg (25.7-33.7) H 04/25/19 15:10 MCHC 33.6 g/dl (32.0-35.9) 04/25/19 15:10 RDW 13.1 % (11.9-15.9) 04/25/19 15:10 Plt Count 215 K/MM3 (134-434) 04/25/19 15:10 MPV 8.8 fl (7.5-11.1) D 04/25/19 15:10 Sodium 138 mmol/L (136-145) 04/25/19 15:10 Potassium 4.1 mmol/L (3.5-5.1) 04/25/19 15:10 Chloride 102 mmol/L (98-107) 04/25/19 15:10 Carbon Dioxide 32 mmol/L (21-32) 04/25/19 15:10 Anion Gap 4 MMOL/L (8-16) L 04/25/19 15:10 BUN 9.7 mg/dL (7-18) 04/25/19 15:10 Creatinine 0.9 mg/dL (0.55-1.3) 04/25/19 15:10 Est GFR (CKD-EPI)AfAm 106.46 04/25/19 15:10 Est GFR (CKD-EPI)NonAf 91.86 04/25/19 15:10 POC Glucometer 110 UNITS (80-120) 04/28/19 05:07 Random Glucose 138 mg/dL (74-106) H 04/25/19 15:10 Calcium 9.0 mg/dL (8.5-10.1) 04/25/19 15:10 Total Bilirubin 0.8 mg/dL (0.2-1) 04/25/19 15:10 AST 9 U/L (15-37) L 04/25/19 15:10 ALT 19 U/L (13-61) 04/25/19 15:10 Alkaline Phosphatase 65 U/L (45-117) 04/25/19 15:10 Total Protein 6.6 g/dl (6.4-8.2) 04/25/19 15:10 Albumin 3.5 g/dl (3.4-5.0) 04/25/19 15:10 Urine Color Yellow 04/25/19 15:58 Urine Appearance Turbid 04/25/19 15:58 Urine pH 5.0 (5.0-8.0) 04/25/19 15:58 Ur Specific [address] [place] 1.024 (1.010-1.035) 04/25/19 15:58 Urine Protein Negative (NEGATIVE) 04/25/19 15:58 Urine Glucose (UA) Negative (NEGATIVE) 04/25/19 15:58 Urine Ketones Negative (NEGATIVE) 04/25/19 15:58 Urine Blood Negative (NEGATIVE) 04/25/19 15:58 Urine Nitrite Negative (NEGATIVE) 04/25/19 15:58 Urine Bilirubin Negative (NEGATIVE) 04/25/19 15:58 Urine Urobilinogen 0.2 mg/dL (0.2-1.0) 04/25/19 15:58 Ur Leukocyte Esterase Negative (NEGATIVE) 04/25/19 15:58 RPR Titer Nonreactive (NONREACTIVE) 04/25/19 15:10 lab noted patient agrees to bring in lab result to eye doctor follow up - Treatment Hospital Course: Detox Protocol Followed, Detoxed Safely, Responded well, Discharged Condition Good, Rehab Referral Accepted Patient has Accepted a Rehab Referral to: [place] [facility] - Medication Discharge Medications: Ambulatory Orders Aspirin [ASA -] 81 mg PO DAILY 05/18/18 Meloxicam [Mobic] 15 mg PO DAILY 05/18/18 Simvastatin [Zocor -] 40 mg PO HS 05/18/18 Brimonidine Tartrate [Alphagan P 0.1% -] 1 drop OU BID #1 bottle 08/03/18 Metformin HCl [Glucophage] 1,000 mg PO BID #60 tablet 08/03/18 Timolol Maleate 0.5% Gfs [Timoptic Xe 0.5%] 1 drop OU BID #1 bottle 08/03/18 Ciprofloxacin 0.3% Eye Drops [Ciloxan 0.3% Eye Drops -] 4 drop OU BID 04/26/19 - Diagnosis (1) Alcohol dependence with uncomplicated withdrawal Status: Acute (2) Opioid dependence with withdrawal Status: Acute (3) Asthma Status: Chronic Qualifiers: Asthma severity: mild Asthma persistence: intermittent Asthma complication type: with status asthmaticus Qualified Code(s): J45.22 - Mild intermittent asthma with status asthmaticus (4) DM2 (diabetes mellitus, type 2) Status: Chronic Qualifiers: Diabetes mellitus snf insulin use: without snf use Diabetes mellitus complication status: with other specified complication Qualified Code (s): E11.69 - Type 2 diabetes mellitus with other specified complication (5) Glaucoma Status: Chronic Qualifiers: Glaucoma type: unspecified Laterality: bilateral Qualified Code(s): H40.9 - Unspecified glaucoma (6) Hypertension Status: Chronic Qualifiers: Hypertension type: unspecified Qualified Code(s): I10 - Essential (primary ) hypertension (7) Nicotine dependence Status: Acute Qualifiers: Nicotine product type: cigarettes Substance use status: in withdrawal Qualified Code(s): F17.213 - Nicotine dependence, cigarettes, with withdrawal (8) Substance induced mood disorder Status: Suspected - AMA Did Patient Leave Against Medical Advice: No
[2019-04-29] MEDS ORDERED: chlordiazePOXIDE HCL 10 MG CAPSULE PO ONE (05:00)
== END 2019-04-28 09:01 | disposition home or self-care (01) | DRG 773 ==
LOC: YASAS 11:33 → Y3N 14:48
PROVIDERS: ADMIT Surgery; ATTEND Surgery
PROC: HZ2ZZZZ Detoxification Services for Substance Abuse Treatment (ICD-10-PCS; principal; 2019-04-25)
DX: F11.23 Opioid dependence with withdrawal (principal); F10.230 Alcohol dependence with withdrawal, uncomplicated; F14.20 Cocaine dependence, uncomplicated; F12.20 Cannabis dependence, uncomplicated; F17.213 Nicotine dependence, cigarettes, with withdrawal; F19.24 Other psychoactive substance dependence with psychoactive substance-induced mood disorder; I10 Essential (primary) hypertension; J45.22 Mild intermittent asthma with status asthmaticus; E11.9 Type 2 diabetes mellitus without complications; H40.9 Unspecified glaucoma; H91.93 Unspecified hearing loss, bilateral; E78.00 Pure hypercholesterolemia, unspecified; Z79.84 Long term (current) use of oral hypoglycemic drugs
CPT/HCPCS: 36415; 80053; 81003; 82962; 85027; 86593

== ENCOUNTER 2019-07-31 15:41 | Inpatient (IN) | payer OTHER ==
[2019-07-31 17:07] VITALS: BMI 22.6
--- NOTE | 2019-07-31 19:33 | HP ---
COWS - Scale Resting Pulse: 2= [place] 101-120 Sweatin= Chills/Flushing Restless Observation: 1= Difficult to Sit Still Pupil Size: 1= Pupils >than Normal Bone or Joint Aches: 2= Severe Diffuse Aches Runny Nose/ Eye Tearin= Runny Nose/Eyes GI Upset > 30mins: 2= Nausea/Diarrhea Tremor Observation: 2= Slight Tremor Visible Yawning Observation: 1= 1-2x During Session Anxiety or Irritability: 2=Irritable/Anxious Goose Flesh Skin: 0=Smooth Skin COWS Score: 16 CIWA Score Nausea/Vomitin Muscle Tremors: 3 Anxiety: 2 Agitation: 2 Paroxysmal Sweats: 1-Minimal Palms Moist Orientation: 0-Oriented Tacttile Disturbances: 1-Very Mild Itch/Numbness Auditory Disturbances: 0-None Visual Disturbances: 0-None Headache: 2-Mild CIWA-Ar Total Score: 13 - Admission Criteria OASAS Guidelines: Admission for Medically Managed Detox: Requires at least one of the followin. CIWA greater than 12 2. Seizures within the past 24 hours 3. Delirium tremens within the past 24 hours 4. Hallucinations within the past 24 hours 5. Acute intervention needed for co occurring medical disorder 6. Acute intervention needed for co occurring psychiatric disorder 7. Severe withdrawal that cannot be handled at a lower level of care (continued vomiting, continued diarrhea, abnormal vital signs) requiring intravenous medication and/or fluids 8. Admitting History and Physical - Smoking History Smoking history: Current every day smoker Have you smoked in the past 12 months: Yes Aproximately how many cigarettes per day: 10 - Alcohol/Substance Use Hx Alcohol Use: Yes Admission ROS [facility] - HPI Chief Complaint: i need help to stop using heroin,alcohol,cocaine ad marijuana Allergies/Adverse Reactions: Allergies Allergy/AdvReac Type Severity Reaction Status Date / Time No Known Allergies Allergy Verified 07/31/19 16:49 History of Present Illness: this 64 years old male with heroin,alcohol,cocaine and marijuana dependence, seeking detox,withdrawal symptom, history of type2 dm,asthma,hypercholesterolemia nicotine dependence 5 cigarette insomnia plan for rehab after detox no significant period of sobriety - Ebola screening Have you traveled outside of the country in the last 21 days: No (N) Have you had contact with anyone from an Ebola affected area: No - Review of Systems Constitutional: Chills, Loss of Appetite, Night Sweats, Changes in sleep, Unintentional Wgt. Loss EENT: reports: Tearing, Nose Congestion Respiratory: reports: No Symptoms reported (asthma) Cardiac: reports: No Symptoms Reported GI: reports: Nausea, Poor Appetite, Vomiting : reports: No Symptoms Reported Musculoskeletal: reports: Back Pain, Joint Pain, Muscle Pain Neuro: reports: Headache, Tremors Endocrine: reports: No Symptoms Reported Hematology: reports: No Symptoms Reported Psychiatric: reports: No Sypmtoms Reported, Judgement Intact, Mood/Affect Appropiate, Orientated x3 (insomnia) Other Systems: Reviewed and Negative Patient History - Patient Medical History Hx Anemia: No Hx Asthma: No Hx Chronic Obstructive Pulmonary Disease (COPD): No Hx Cancer: No Hx Cardiac Disorders: No Hx Congestive Heart Failure: No Hx Hypertension: No Hx Hypercholesterolemia: Yes (on med) Hx Pacemaker: No HX Cerebrovascular Accident: No Hx Seizures: No Hx Dementia: No Hx Diabetes: Yes Hx Gastrointestinal Disorders: No Hx Liver Disease: No Hx Genitourinary Disorders: No Hx Sexually Transmitted Disorders: No Hx Renal Disease (ESRD): No Hx Thyroid Disease: No Hx Human Immunodeficiency Virus (HIV): No (last 06/22 negative) Hx Hepatitis C: No Hx Depression: Yes Hx Suicide Attempt: No Hx Bipolar Disorder: No Hx Schizophrenia: No Other Medical History: no suicidal,no homicidal - Patient Surgical History Past Surgical History: No Hx Neurologic Surgery: No Hx Cataract Extraction: No Hx Cardiac Surgery: No Hx Lung Surgery: No Hx Breast Surgery: No Hx Breast Biopsy: No Hx Abdominal Surgery: No Hx Appendectomy: No Hx Cholecystectomy: No Hx Genitourinary Surgery: No Hx Section: No Hx Orthopedic Surgery: No Anesthesia Reaction: No - PPD History Previous Implant?: Yes Implanted On Prior [facility] Admission?: Yes Date: 05/20/18 Results: 0 mm PPD to be Administered?: No - Smoking Cessation Smoking history: Current every day smoker Have you smoked in the past 12 months: Yes Aproximately how many cigarettes per day: 5 Hx Chewing Tobacco Use: No Initiated information on smoking cessation: Yes 'Breaking Loose' booklet given: 07/31/19 - Substance & Tx. History Hx Alcohol Use: Yes Hx Substance Use: Yes Substance Use Type: Alcohol, Cocaine, Heroin, Marijuana Hx Substance Use Treatment: Yes ([facility] 04/25/19 to 04/28/19) - Substances abused Alcohol Substance route: Oral Frequency: Daily Amount used: 6 packs of beer Age of first use: 15 Date of last use: 07/31/19 Heroin Substance route: Inhalation Frequency: Daily Amount used: 2 bags Age of first use: 61 Date of last use: 07/30/19 Crack Substance route: Smoking Frequency: Daily Amount used: ' not sure of the amount' Age of first use: 33 Date of last use: 07/31/19 Marijuana/Hashish Substance route: Smoking Frequency: 1-2 times per week Amount used: ' very little'.5$ Age of first use: 16 Date of last use: 07/31/19 Admission Physical Exam S - Vital Signs Vital Signs: Vital Signs - 24 hr 07/31/19 16:45 Temperature 98.9 F Pulse Rate 101 H Respiratory 18 Rate Blood Pressure 137/74 - Physical General Appearance: Yes: Tremorous, Irritable, Sweating, Anxious HEENTM: Yes: Normal ENT Inspection, Normocephalic, Tm's normal Respiratory: Yes: Lungs Clear, Normal Breath Sounds, No Respiratory Distress Neck: Yes: Within Normal Limits, Supple, Trachea in good position Breast: Yes: Within Normal Limits Cardiology: Yes: Within Normal Limits, Regular Rhythm, Regular Rate, S1, S2 Abdominal: Yes: Within Normal Limits, Normal Bowel Sounds, Non Tender, Flat Genitourinary: Yes: Within Normal Limits Back: Yes: Normal Inspection, Muscle Spasm Musculoskeletal: Yes: Back pain, Joint Stiffness, Muscle Pain Extremities: Yes: Within Normal Limits, Normal Range of Motion, Tremors Neurological: Yes: health information management director II-XII NML intact, Alert, Motor Strength 5/5 Integumentary: Yes: Dry Lymphatic: Yes: Within Normal Limits - Diagnostic (1) Opioid dependence with withdrawal Current Visit: No Status: Acute (2) Alcohol dependence with uncomplicated withdrawal Current Visit: No Status: Acute (3) Nicotine dependence Current Visit: No Status: Acute Qualifiers: Nicotine product type: cigarettes Substance use status: in withdrawal Qualified Code(s): F17.213 - Nicotine dependence, cigarettes, with withdrawal (4) Asthma Current Visit: No Status: Chronic Qualifiers: Asthma severity: mild Asthma persistence: intermittent Asthma complication type: with status asthmaticus Qualified Code(s): J45.22 - Mild intermittent asthma with status asthmaticus (5) Cocaine dependence Current Visit: No Status: Chronic Qualifiers: Substance use status: uncomplicated Qualified Code(s): F14.20 - Cocaine dependence, uncomplicated (6) Hard of hearing Current Visit: No Status: Chronic (7) Hyperlipidemia Current Visit: No Status: Chronic Qualifiers: Hyperlipidemia type: unspecified Qualified Code(s): E78.5 - Hyperlipidemia , unspecified (8) Hypertension Current Visit: No Status: Chronic Qualifiers: Hypertension type: unspecified Qualified Code(s): I10 - Essential (primary ) hypertension (9) Type 2 diabetes mellitus with hyperglycemia Current Visit: No Status: Chronic (10) Dehydration Current Visit: Yes Status: Acute Cleared for Admission S - Detox or Rehab S Level of Care: Medically Managed Detox Regimen/Protocol: Methadone/Librium Breathalyzer - Breathalyzer Breathalyzer: 0 Urine Drug Screen - Test Device Lot number: [id number] Expiration date: 02/01/21 - Control Is test valid?: Yes - Results Drug screen NEGATIVE: No Urine drug screen results: THC-Marijuana, CANDE-Cocaine, FEN-Fentanyl, MOP-Opiates Inpatient Rehab Admission - Rehab Decision to Admit Inpatient rehab admission?: No
[2019-07-31] MEDS ORDERED: cloNIDine HCL 0.1 MG TABLET PO PRN (19:43)
[2019-07-31] MEDS ORDERED: MENTHOL/PHENOL 1 EACH UD MM PRN (19:43)
[2019-07-31] MEDS ORDERED: IBUPROFEN 400 MG TABLET (FP) PO PRN (19:43)
[2019-07-31] MEDS ORDERED: MAGNESIUM CITRATE 300 ML BOTTLE PO PRN (19:43)
[2019-07-31] MEDS ORDERED: BISMUTH SUBSALICYLATE 524 MG/30 ML UD PO PRN (19:43)
[2019-07-31] MEDS ORDERED: ACETAMINOPHEN 325 MG TABLET (FP) PO PRN ×2 (19:43)
[2019-07-31] MEDS ORDERED: hydrOXYzine PAMOATE 25 MG CAPSULE (FP) PO PRN (19:43)
[2019-07-31] MEDS ORDERED: MAG HYDROX/AL HYDROX/SIMETH 30 ML UNIT-DOSE CUP PO PRN (19:43)
[2019-07-31] MEDS ORDERED: MAGNESIUM HYDROX 2400MG/30ML ORAL SUSPENSION 30 ML CUP PO PRN (19:43)
[2019-07-31] MEDS ORDERED: METHOCARBAMOL 500 MG TABLET PO PRN (19:43)
[2019-07-31] MEDS ORDERED: chlordiazePOXIDE HCL 25 MG CAPSULE PO PRN (19:43)
[2019-07-31] MEDS ORDERED: METHADONE HCL 10 MG TABLET (FOR DETOX USE ONLY) PO ONE (20:05)
[2019-07-31] MEDS: NICOTINE 21 MG/24 HOURS TOPICAL PATCH TD SCH (20:59)
[2019-07-31] MEDS: chlordiazePOXIDE HCL 25 MG CAPSULE PO SCH (22:49)
[2019-07-31] MEDS: MELATONIN 5 MG TABLETS PO PRN (22:49)
[2019-07-31] MEDS: ATORVASTATIN CA 20 MG TABLET (FP) PO SCH (22:49)
[2019-07-31] MEDS: THIAMINE HCL 100 MG TABLET (FP) PO SCH (22:49)
[2019-07-31] MEDS: BRIMONIDINE TARTRATE 0.1% OPHTHALMIC 5 ML BOTTLE OU SCH (23:38)
[2019-08-01] MEDS: chlordiazePOXIDE HCL 25 MG CAPSULE PO SCH ×4 (06:29→22:12)
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
[2019-08-01] MEDS: metFORMIN HCL 500 MG TABLET (FP) PO SCH ×2 (08:49→17:09)
[2019-08-01 09:57] LABS: HEMATOCRIT 43.1 % (35.4-49); HEMOGLOBIN 14.1 GM/dL (11.7-16.9); MCH 35.5 pg (25.7-33.7); MCHC 32.8 g/dl (32.0-35.9); MEAN CELL VOLUME 108.2 fl (80-96); MEAN PLT VOLUME 9.4 fl (7.5-11.1); PLATELET COUNT 250 K/MM3 (134-434); RBC 3.98 M/mm3 (4.00-5.60); RDW 13.3 % (11.9-15.9); WHITE BLOOD COUNT 4.8 K/mm3 (4.0-10.0)
[2019-08-01] MEDS ORDERED: METHADONE HCL 5 MG TABLET (FOR DETOX USE ONLY) PO ONE (10:00)
[2019-08-01 10:25] LABS: ALBUMIN 4.1 g/dl (3.4-5.0); BILIRUBIN,TOTAL 0.8 mg/dL (0.2-1); BLOOD UREA NITROGEN 18.8 mg/dL (7-18); CALCIUM 9.6 mg/dL (8.5-10.1); CREATININE 0.9 mg/dL (0.55-1.3); POTASSIUM 3.8 mmol/L (3.5-5.1); TOT PROT 7.7 g/dl (6.4-8.2)
[2019-08-01] MEDS: PRENATAL VITAMINS W/ FOLIC ACID TABLET (FP) PO SCH (11:45)
[2019-08-01] MEDS: ASPIRIN 81 MG CHEWABLE TABLETS PO SCH (11:46)
[2019-08-01] MEDS: BRIMONIDINE TARTRATE 0.1% OPHTHALMIC 5 ML BOTTLE OU SCH ×2 (11:46→22:13)
[2019-08-01] MEDS: CARBAMIDE PEROXIDE 6.5% OTIC 15 ML BOTTLE AU SCH ×2 (11:47→22:13)
[2019-08-01] MEDS: NICOTINE 21 MG/24 HOURS TOPICAL PATCH TD SCH (13:02)
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
[2019-08-01] MEDS: ALBUTEROL SO4 8 GM HFA INHALER IH PRN (15:58)
[2019-08-01] MEDS: ATORVASTATIN CA 20 MG TABLET (FP) PO SCH (22:11)
[2019-08-01] MEDS: THIAMINE HCL 100 MG TABLET (FP) PO SCH (22:12)
[2019-08-01] MEDS: MELATONIN 5 MG TABLETS PO PRN (22:12)
[2019-08-01] MEDS: TIMOLOL 0.5% OPHTHALMIC SOL 5 ML BOTTLE OU SCH (22:15)
[2019-08-02] MEDS ORDERED: chlordiazePOXIDE HCL 10 MG CAPSULE PO PRN
[2019-08-02] MEDS: chlordiazePOXIDE HCL 25 MG CAPSULE PO SCH ×2 (01:30→01:31)
[2019-08-02] MEDS: TIMOLOL 0.5% OPHTHALMIC SOL 5 ML BOTTLE OU SCH ×4 (01:30→22:02)
[2019-08-02] MEDS: chlordiazePOXIDE HCL 10 MG CAPSULE PO SCH ×4 (05:32→22:03)
[2019-08-02] MEDS: metFORMIN HCL 500 MG TABLET (FP) PO SCH ×2 (06:32→17:55)
--- NOTE | 2019-08-02 09:48 | PN ---
[facility] CIWA - CIWA Score Nausea/Vomitin-Mild Nausea/No Vomiting Muscle Tremors: 2 Anxiety: 2 Agitation: 2 Paroxysmal Sweats: No Perspiration Orientation: 0-Oriented Tacttile Disturbances: 1-Very Mild Itch/Numbness Auditory Disturbances: 0-None Visual Disturbances: 0-None Headache: 1-Very Mild CIWA-Ar Total Score: 9 BHS COWS - Scale Resting Pulse: 0= [place] 80 or Below Sweatin= No chills or Flushing Restless Observation: 1= Difficult to Sit Still Pupil Size: 1= Pupils >than Normal Bone or Joint Aches: 1= Mild Discomfort Runny Nose/ Eye Tearin= Nasal Congestion GI Upset > 30mins: 1= Stomach Cramp Tremor Observation of Outstretched Hands: 1= Tremor [place], Not Seen Yawning Observation: 1= 1-2x During Session Anxiety or Irritability: 2=Irritable/Anxious Goose Flesh Skin: 0=Smooth Skin COWS Score: 9 [facility] Progress Note (SOAP) Subjective: alert,irritable,anxious,interrupted sleep,pain in the body Objective: 08/02/19 09:46 Vital Signs Temperature 98.1 F 08/02/19 09:41 Pulse Rate 73 08/02/19 09:41 Respiratory Rate 18 08/02/19 09:41 Blood Pressure 136/76 08/02/19 09:41 O2 Sat by Pulse Oximetry (%) 08/02/19 09:46 glucose 110 Assessment: 08/02/19 09:46 withdrawal symptom Plan: continue detox,bgm monitoring,psychiatric consultation
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
[2019-08-02] MEDS ORDERED: METHADONE HCL 10 MG TABLET (FOR DETOX USE ONLY) PO ONE (10:00)
[2019-08-02] MEDS: PRENATAL VITAMINS W/ FOLIC ACID TABLET (FP) PO SCH (10:24)
[2019-08-02] MEDS: NICOTINE 21 MG/24 HOURS TOPICAL PATCH TD SCH (10:24)
[2019-08-02] MEDS: ASPIRIN 81 MG CHEWABLE TABLETS PO SCH (10:25)
[2019-08-02] MEDS: CARBAMIDE PEROXIDE 6.5% OTIC 15 ML BOTTLE AU SCH ×2 (10:25→22:02)
[2019-08-02] MEDS: BRIMONIDINE TARTRATE 0.1% OPHTHALMIC 5 ML BOTTLE OU SCH ×2 (10:25→22:02)
--- NOTE | 2019-08-02 12:22 | PN ---
[facility] CIWA - CIWA Score Nausea/Vomitin-Mild Nausea/No Vomiting Muscle Tremors: 2 Anxiety: 2 Agitation: 2 Paroxysmal Sweats: No Perspiration Orientation: 0-Oriented Tacttile Disturbances: 1-Very Mild Itch/Numbness Auditory Disturbances: 0-None Visual Disturbances: 0-None Headache: 1-Very Mild CIWA-Ar Total Score: 9 BHS COWS - Scale Resting Pulse: 0= [place] 80 or Below Sweatin= No chills or Flushing Restless Observation: 1= Difficult to Sit Still Pupil Size: 1= Pupils >than Normal Bone or Joint Aches: 1= Mild Discomfort Runny Nose/ Eye Tearin= Nasal Congestion GI Upset > 30mins: 1= Stomach Cramp Tremor Observation of Outstretched Hands: 1= Tremor [place], Not Seen Yawning Observation: 1= 1-2x During Session Anxiety or Irritability: 2=Irritable/Anxious Goose Flesh Skin: 0=Smooth Skin COWS Score: 9 [facility] Progress Note (SOAP) Subjective: alert,irritable,anxious,no swelling of the face,on debrox ear drop for wax both ears,ambulation in the [address], poor appetite,requested nutrient supplement,will give glucerna 1 can po bid Objective: 08/02/19 12:21 Vital Signs Temperature 98.1 F 08/02/19 09:41 Pulse Rate 73 08/02/19 09:41 Respiratory Rate 18 08/02/19 09:41 Blood Pressure 136/76 08/02/19 09:41 O2 Sat by Pulse Oximetry (%) Assessment: 08/02/19 12:21 withdrawal symptom Plan: continue detox,glucerna 1 can po bid
[2019-08-02] MEDS: THIAMINE HCL 100 MG TABLET (FP) PO SCH (22:03)
[2019-08-02] MEDS: ATORVASTATIN CA 20 MG TABLET (FP) PO SCH (22:03)
[2019-08-02] MEDS: MELATONIN 5 MG TABLETS PO PRN (22:03)
[2019-08-03] MEDS ORDERED: METHADONE HCL 5 MG TABLET (FOR DETOX USE ONLY) PO ONE (06:00)
[2019-08-03] MEDS: metFORMIN HCL 500 MG TABLET (FP) PO SCH ×2 (06:18→17:23)
[2019-08-03] MEDS: chlordiazePOXIDE HCL 10 MG CAPSULE PO SCH ×2 (06:18→17:23)
[2019-08-03] MEDS: PRENATAL VITAMINS W/ FOLIC ACID TABLET (FP) PO SCH (10:25)
[2019-08-03] MEDS: NICOTINE 21 MG/24 HOURS TOPICAL PATCH TD SCH (10:25)
[2019-08-03] MEDS: ASPIRIN 81 MG CHEWABLE TABLETS PO SCH (10:26)
[2019-08-03] MEDS: TIMOLOL 0.5% OPHTHALMIC SOL 5 ML BOTTLE OU SCH ×2 (10:26→22:30)
[2019-08-03] MEDS: BRIMONIDINE TARTRATE 0.1% OPHTHALMIC 5 ML BOTTLE OU SCH ×2 (10:26→22:30)
[2019-08-03] MEDS: CARBAMIDE PEROXIDE 6.5% OTIC 15 ML BOTTLE AU SCH ×2 (10:26→22:32)
--- NOTE | 2019-08-03 10:31 | PN ---
[facility] CIWA - CIWA Score Nausea/Vomitin-No Nausea/No Vomiting Muscle Tremors: 1-None Visible, but [place] Anxiety: 2 Agitation: 2 Paroxysmal Sweats: No Perspiration Orientation: 0-Oriented Tacttile Disturbances: 1-Very Mild Itch/Numbness Auditory Disturbances: 0-None Visual Disturbances: 0-None Headache: 1-Very Mild CIWA-Ar Total Score: 7 S COWS - Scale Resting Pulse: 1= [place] 81-100 Sweatin= No chills or Flushing Restless Observation: 1= Difficult to Sit Still Pupil Size: 1= Pupils >than Normal Bone or Joint Aches: 1= Mild Discomfort Runny Nose/ Eye Tearin= Nasal Congestion GI Upset > 30mins: 1= Stomach Cramp Tremor Observation of Outstretched Hands: 1= Tremor [place], Not Seen Yawning Observation: 1= 1-2x During Session Anxiety or Irritability: 2=Irritable/Anxious Goose Flesh Skin: 0=Smooth Skin COWS Score: 10 [facility] Progress Note (SOAP) Subjective: alert,irritable,anxious,interrupted sleep,ambulation ok on the unit, no swelling of face on debrox eardrop 5 tts both ear bid for wax in both ear Objective: 08/03/19 10:29 Vital Signs Temperature 98.4 F 08/03/19 09:16 Pulse Rate 83 08/03/19 09:16 Respiratory Rate 18 08/03/19 09:16 Blood Pressure 114/74 08/03/19 09:16 O2 Sat by Pulse Oximetry (%) Assessment: 08/03/19 10:29 withdrawal symptom examination both ears ,wax both ear, Plan: continue detox methadone and librium regimen,discharge in am
[2019-08-03] MEDS: ALBUTEROL SO4 8 GM HFA INHALER IH PRN ×2 (17:25→22:33)
[2019-08-03] MEDS: ATORVASTATIN CA 20 MG TABLET (FP) PO SCH (22:30)
[2019-08-03] MEDS: THIAMINE HCL 100 MG TABLET (FP) PO SCH (22:30)
[2019-08-03] MEDS: MELATONIN 5 MG TABLETS PO PRN (22:31)
[2019-08-04] MEDS ORDERED: chlordiazePOXIDE HCL 10 MG CAPSULE PO ONE (05:00)
[2019-08-04] MEDS: metFORMIN HCL 500 MG TABLET (FP) PO SCH (06:07)
[2019-08-04] MEDS: ALBUTEROL SO4 8 GM HFA INHALER IH PRN ×2 (06:08→09:25)
--- NOTE | 2019-08-04 08:43 | DS ---
[facility] Detox Discharge Summary Admission Date: 07/31/19 Discharge Date: 08/04/19 - History Present History: Alcohol Dependence, Cannabis Dependence - Physical Exam Results Vital Signs: Vital Signs Temperature 96.3 F L 08/04/19 07:19 Pulse Rate 72 08/04/19 07:19 Respiratory Rate 18 08/04/19 07:19 Blood Pressure 113/55 L 08/04/19 07:19 O2 Sat by Pulse Oximetry (%) - Treatment Hospital Course: Detox Protocol Followed, Detoxed Safely, Responded well, Discharged Condition Good, Rehab Referral Accepted Patient has Accepted a Rehab Referral to: pt declined rehab; referral provided - Medication Discharge Medications: Ambulatory Orders Aspirin [ASA -] 81 mg PO DAILY 05/18/18 Meloxicam [Mobic] 15 mg PO DAILY 05/18/18 Simvastatin [Zocor -] 40 mg PO HS 05/18/18 Brimonidine Tartrate [Alphagan P 0.1% -] 1 drop OU BID #1 bottle 08/03/18 Metformin HCl [Glucophage] 1,000 mg PO BID #60 tablet 08/03/18 Timolol Maleate 0.5% Gfs [Timoptic Xe 0.5%] 1 drop OU BID #1 bottle 08/03/18 Thiamine HCl [Vitamin B-1] 100 mg PO DAILY 07/31/19 - Diagnosis (1) Cannabis dependence Current Visit: Yes Status: Chronic (2) Substance induced mood disorder Current Visit: Yes Status: Acute (3) Substance-induced sleep disorder Current Visit: Yes Status: Acute (4) Bronchial asthma Current Visit: Yes Status: Chronic (5) Diabetic neuropathy Current Visit: Yes Status: Chronic Qualifiers: Diabetes mellitus type: type 2 (6) Alcohol dependence with uncomplicated withdrawal Current Visit: Yes Status: Chronic (7) Cocaine dependence Current Visit: Yes Status: Chronic Qualifiers: Substance use status: uncomplicated Qualified Code(s): F14.20 - Cocaine dependence, uncomplicated (8) Nicotine dependence Current Visit: Yes Status: Chronic Qualifiers: Nicotine product type: cigarettes Substance use status: uncomplicated Qualified Code(s): F17.210 - Nicotine dependence, cigarettes, uncomplicated (9) Opioid dependence with withdrawal Current Visit: Yes Status: Chronic (10) Asthma Current Visit: Yes Status: Chronic Qualifiers: Asthma severity: mild Asthma persistence: intermittent Asthma complication type: with status asthmaticus Qualified Code(s): J45.22 - Mild intermittent asthma with status asthmaticus (11) DM2 (diabetes mellitus, type 2) Current Visit: Yes Status: Chronic Qualifiers: Diabetes mellitus rn long term care insulin use: without rn long term care use Diabetes mellitus complication status: with other specified complication Qualified Code (s): E11.69 - Type 2 diabetes mellitus with other specified complication (12) Glaucoma Current Visit: Yes Status: Chronic Qualifiers: Glaucoma type: unspecified Laterality: bilateral Qualified Code(s): H40.9 - Unspecified glaucoma (13) [place] (hard of hearing) Current Visit: No Status: Chronic Qualifiers: Hearing loss type: unspecified Laterality: unspecified laterality Qualified Code(s): H91.90 - Unspecified hearing loss, unspecified ear (14) Hyperlipidemia Current Visit: Yes Status: Chronic Qualifiers: Hyperlipidemia type: unspecified Qualified Code(s): E78.5 - Hyperlipidemia , unspecified (15) Hypertension Current Visit: Yes Status: Chronic Qualifiers: Hypertension type: unspecified Qualified Code(s): I10 - Essential (primary ) hypertension - AMA Did Patient Leave Against Medical Advice: No
[2019-08-04] MEDS: NICOTINE 21 MG/24 HOURS TOPICAL PATCH TD SCH (09:20)
[2019-08-04] MEDS: PRENATAL VITAMINS W/ FOLIC ACID TABLET (FP) PO SCH (09:22)
[2019-08-04] MEDS: ASPIRIN 81 MG CHEWABLE TABLETS PO SCH (09:23)
[2019-08-04] MEDS: TIMOLOL 0.5% OPHTHALMIC SOL 5 ML BOTTLE OU SCH (09:23)
[2019-08-04] MEDS: CARBAMIDE PEROXIDE 6.5% OTIC 15 ML BOTTLE AU SCH (09:24)
[2019-08-04] MEDS: BRIMONIDINE TARTRATE 0.1% OPHTHALMIC 5 ML BOTTLE OU SCH (09:24)
[2019-08-04 09:25] VITALS: BP 132/65; PULSE 86; TEMP 98.6
== END 2019-08-04 09:24 | disposition home or self-care (01) | DRG 773 ==
LOC: YASAS 15:41 → Y6N 19:55
PROVIDERS: ADMIT Allergy & Immunology; ATTEND Allergy & Immunology
PROC: HZ2ZZZZ Detoxification Services for Substance Abuse Treatment (ICD-10-PCS; principal; 2019-07-31)
DX: F10.230 Alcohol dependence with withdrawal, uncomplicated (principal); F11.23 Opioid dependence with withdrawal; F14.20 Cocaine dependence, uncomplicated; F12.20 Cannabis dependence, uncomplicated; F17.210 Nicotine dependence, cigarettes, uncomplicated; F19.282 Other psychoactive substance dependence with psychoactive substance-induced sleep disorder; F19.24 Other psychoactive substance dependence with psychoactive substance-induced mood disorder; J45.22 Mild intermittent asthma with status asthmaticus; I10 Essential (primary) hypertension; E78.5 Hyperlipidemia, unspecified; E11.42 Type 2 diabetes mellitus with diabetic polyneuropathy; Z79.84 Long term (current) use of oral hypoglycemic drugs; G47.00 Insomnia, unspecified; H91.90 Unspecified hearing loss, unspecified ear; H40.9 Unspecified glaucoma; M12.9 Arthropathy, unspecified; S09.93XA Unspecified injury of face, initial encounter; T76.11XA Adult physical abuse, suspected, initial encounter; Y04.2XXA Assault by strike against or bumped into by another person, initial encounter; Y93.89 Activity, other specified; Y92.230 Patient room in hospital as the place of occurrence of the external cause
CPT/HCPCS: 36415; 80053; 82962; 85027; 86593

== ENCOUNTER 2019-08-27 11:06 | Inpatient (IN) | payer OTHER ==
[2019-08-27 12:06] VITALS: BMI 23.6
--- NOTE | 2019-08-27 13:18 | HP ---
COWS - Scale Resting Pulse: 2= [place] 101-120 Sweatin= Chills/Flushing Restless Observation: 1= Difficult to Sit Still Pupil Size: 0= Normal to Room Light Bone or Joint Aches: 1= Mild Discomfort Runny Nose/ Eye Tearin= Nasal Congestion GI Upset > 30mins: 1= Stomach Cramp Tremor Observation: 2= Slight Tremor Visible Yawning Observation: 1= 1-2x During Session Anxiety or Irritability: 1=Feels Anxious/Irritable Goose Flesh Skin: 3=Piloerection COWS Score: 14 Admitting History and Physical - Admission History Source: Patient, Medical Record - Past Medical History Endocrine: Yes: Diabetes Mellitus (well controlled - eats regular diet) - Alcohol/Substance Use Hx Alcohol Use: Yes - Social History Usual Living Arrangement: Yes: Other (lives with friend) ADL: Support Services (disabled) Admission ROS [facility] - HPI Chief Complaint: I need to be there for my family, I need to be more responsible with my money, not just spend it all on drugs - I need to be a better person Allergies/Adverse Reactions: Allergies Allergy/AdvReac Type Severity Reaction Status Date / Time No Known Allergies Allergy Verified 08/27/19 11:50 History of Present Illness: 64 yo gentleman here for detox from opiates, also drinks alcohol but states he does not get withdrawals from not drinking alcohol only not using opiates. Denies seizures but does have black outs and has had history of overdose. Lives with his friend. This is one of multiple admissions for treatment - he was here last 07/31/19 but left early. He is declining a NCS diet - states his diabetes is controlled with his medication and never goes over 150. Exam Limitations: Clinical Condition - Ebola screening Have you traveled outside of the country in the last 21 days: No (N) Have you had contact with anyone from an Ebola affected area: No Do you have a fever: No - Review of Systems Constitutional: Loss of Appetite, Malaise, Changes in sleep, Weakness EENT: reports: Hearing Loss (chronic hearing loss) Respiratory: reports: No Symptoms reported Cardiac: reports: No Symptoms Reported GI: reports: Poor Appetite, Poor Fluid Intake, Abdominal cramping : reports: Frequency Musculoskeletal: reports: Back Pain, Muscle Pain Integumentary: reports: Dryness Neuro: reports: Headache, Numbness, Weakness Endocrine: reports: No Symptoms Reported Hematology: reports: No Symptoms Reported Psychiatric: reports: Judgement Intact, Mood/Affect Appropiate, Anxious Other Systems: Reviewed and Negative Patient History - Patient Medical History Hx Anemia: No Hx Asthma: Yes (no inghalers) Hx Chronic Obstructive Pulmonary Disease (COPD): No Hx Cancer: No Hx Cardiac Disorders: No Hx Congestive Heart Failure: No Hx Hypertension: No Hx Hypercholesterolemia: Yes (on med) Hx Pacemaker: No HX Cerebrovascular Accident: No Hx Seizures: No Hx Dementia: No Hx Diabetes: Yes (on meds; with neuropathy) Hx Gastrointestinal Disorders: No Hx Liver Disease: No Hx Genitourinary Disorders: No Hx Sexually Transmitted Disorders: No Hx Renal Disease (ESRD): No Hx Thyroid Disease: No Hx Human Immunodeficiency Virus (HIV): No (last 06/22 negative) Hx Hepatitis C: No Hx Depression: Yes Hx Suicide Attempt: No Hx Bipolar Disorder: No Hx Schizophrenia: No Other Medical History: back pain/arthritis - Patient Surgical History Past Surgical History: No Hx Neurologic Surgery: No Hx Cataract Extraction: No Hx Cardiac Surgery: No Hx Lung Surgery: No Hx Breast Surgery: No Hx Breast Biopsy: No Hx Abdominal Surgery: No Hx Appendectomy: No Hx Cholecystectomy: No Hx Genitourinary Surgery: No Hx Section: No Hx Orthopedic Surgery: No Anesthesia Reaction: No - PPD History Previous Implant?: Yes Documented Results: Negative w/proof Implanted On Prior R Admission?: Yes Date: 05/20/18 Results: 0 mm PPD to be Administered?: Yes - Reproductive History Patient is a Female of Child Bearing Age (11 -55 yrs old): No - Smoking Cessation Smoking history: Current every day smoker Have you smoked in the past 12 months: Yes Aproximately how many cigarettes per day: 8 Hx Chewing Tobacco Use: No Initiated information on smoking cessation: Yes 'Breaking Loose' booklet given: 08/27/19 (give on floor) - Substance & Tx. History Hx Alcohol Use: Yes Hx Substance Use: Yes Substance Use Type: Alcohol, Cocaine, Heroin, Marijuana Hx Substance Use Treatment: Yes (detox, rehab) - Substances abused Alcohol Substance route: Oral Frequency: Daily Amount used: 2 12 oz cans beer Age of first use: 15 Date of last use: 08/27/19 Heroin Substance route: Inhalation Frequency: Daily Amount used: 2 bags Age of first use: 61 Date of last use: 08/27/19 Crack Substance route: Smoking Frequency: 3-6 times per week Amount used: $20 (but I didn't buy it) Age of first use: 33 Date of last use: 08/26/19 Marijuana/Hashish Substance route: Smoking Frequency: 1-2 times per week Amount used: $5 Age of first use: 16 Date of last use: 08/27/19 Admission Physical Exam S - Vital Signs Vital Signs: Vital Signs - 24 hr 08/27/19 11:52 Temperature 97.7 F Pulse Rate 101 H Respiratory 20 Rate Blood Pressure 86/55 L - Physical General Appearance: Yes: Nourished, Appropriately Dressed, Moderate Distress, Tremorous, Anxious HEENTM: Yes: EOMI, Normocephalic, Normal Voice, Pharynx Normal, Hearing Decreased Respiratory: Yes: Normal Breath Sounds, No Respiratory Distress Neck: Yes: No masses,lesions,Nodules Breast: Yes: Breast Exam Deferred Cardiology: Yes: Regular Rhythm, Regular Rate Abdominal: Yes: Soft Genitourinary: Yes: Frequency Back: Yes: Decreased Range of Motion, Other (mild kyphosis) Musculoskeletal: Yes: full range of Motion, Gait Steady, Back pain, Joint Stiffness, Muscle Pain Extremities: Yes: Non-Tender, Tremors, Coldness Neurological: Yes: Fully Oriented, Alert, Normal Mood/Affect, Normal Response, Numbness Integumentary: Yes: Normal Color, Warm Lymphatic: Yes: Within Normal Limits - Diagnostic (1) Opioid dependence with withdrawal Current Visit: Yes Status: Chronic (2) Alcohol use disorder, mild, abuse Current Visit: Yes Status: Chronic (3) Cocaine dependence Current Visit: Yes Status: Chronic Qualifiers: Substance use status: uncomplicated Qualified Code(s): F14.20 - Cocaine dependence, uncomplicated (4) Cannabis dependence Current Visit: Yes Status: Chronic (5) DM2 (diabetes mellitus, type 2) Current Visit: Yes Status: Chronic Qualifiers: Diabetes mellitus halfway insulin use: without watermaster use Diabetes mellitus complication status: with other specified complication Qualified Code (s): E11.69 - Type 2 diabetes mellitus with other specified complication (6) Diabetic neuropathy Current Visit: Yes Status: Chronic Qualifiers: Diabetes mellitus type: type 2 Diabetes mellitus complication detail: diabetic polyneuropathy Qualified Code(s): E11.42 - Type 2 diabetes mellitus with diabetic polyneuropathy (7) Glaucoma Current Visit: Yes Status: Chronic Qualifiers: Glaucoma type: unspecified Laterality: bilateral Qualified Code(s): H40.9 - Unspecified glaucoma (8) [place] (hard of hearing) Current Visit: Yes Status: Chronic Qualifiers: Hearing loss type: unspecified Laterality: unspecified laterality Qualified Code(s): H91.90 - Unspecified hearing loss, unspecified ear (9) Nicotine dependence Current Visit: Yes Status: Chronic Qualifiers: Nicotine product type: cigarettes Substance use status: uncomplicated Qualified Code(s): F17.210 - Nicotine dependence, cigarettes, uncomplicated (10) Asthma Current Visit: Yes Status: Chronic Qualifiers: Asthma severity: mild Asthma persistence: intermittent Asthma complication type: with status asthmaticus Qualified Code(s): J45.22 - Mild intermittent asthma with status asthmaticus Cleared for Admission [facility] - Detox or Rehab [facility] Level of Care: Medically Managed Detox Regimen/Protocol: Methadone Breathalyzer - Breathalyzer Breathalyzer: 0.016 Urine Drug Screen - Test Device Lot number: [id number] Expiration date: 05/04/21 - Control Is test valid?: Yes - Results Drug screen NEGATIVE: No Urine drug screen results: THC-Marijuana, CANDE-Cocaine, MOP-Opiates, BZO- Benzodiazepines Inpatient Rehab Admission - Rehab Decision to Admit Inpatient rehab admission?: No
[2019-08-27] MEDS ORDERED: clonazePAM 0.5 MG TABLET PO PRN (13:32)
[2019-08-27] MEDS ORDERED: MENTHOL/PHENOL 1 EACH UD MM PRN (13:32)
[2019-08-27] MEDS ORDERED: METHOCARBAMOL 500 MG TABLET PO PRN (13:32)
[2019-08-27] MEDS ORDERED: ACETAMINOPHEN 325 MG TABLET (FP) PO PRN ×2 (13:32)
[2019-08-27] MEDS ORDERED: cloNIDine HCL 0.1 MG TABLET PO PRN (13:32)
[2019-08-27] MEDS ORDERED: BISMUTH SUBSALICYLATE 524 MG/30 ML UD PO PRN (13:32)
[2019-08-27] MEDS ORDERED: MAGNESIUM CITRATE 300 ML BOTTLE PO PRN (13:32)
[2019-08-27] MEDS ORDERED: MAGNESIUM HYDROX 2400MG/30ML ORAL SUSPENSION 30 ML CUP PO PRN (13:32)
[2019-08-27] MEDS ORDERED: MAG HYDROX/AL HYDROX/SIMETH 30 ML UNIT-DOSE CUP PO PRN (13:32)
[2019-08-27] MEDS ORDERED: METHADONE HCL 10 MG TABLET (FOR DETOX USE ONLY) PO ONE (13:32)
[2019-08-27] MEDS: GABAPENTIN 300 MG CAPSULE (FP) PO SCH ×2 (15:03→22:02)
[2019-08-27] MEDS: NICOTINE 14 MG/24 HOURS TOPICAL PATCH TD SCH (15:09)
[2019-08-27] MEDS: metFORMIN HCL 500 MG TABLET (FP) PO SCH (17:31)
[2019-08-27] MEDS ORDERED: BRIMONIDINE TARTRATE 0.1% OPHTHALMIC 5 ML BOTTLE OU SCH (22:00)
[2019-08-27] MEDS ORDERED: TIMOLOL MALEATE 0.5% GFS OPHTHALMIC SOLN 5 ML BOTTLE OU SCH (22:00)
[2019-08-27] MEDS: THIAMINE HCL 100 MG TABLET (FP) PO SCH (22:01)
[2019-08-27] MEDS: TIMOLOL 0.5% OPHTHALMIC SOL 5 ML BOTTLE OU SCH (22:04)
[2019-08-27] MEDS: BRIMONIDINE TARTRATE 0.15% OPHTHALMIC 5 ML BOTTLE OU SCH (22:05)
[2019-08-27] MEDS: ATORVASTATIN CA 40 MG TABLET (FP) PO SCH (22:05)
[2019-08-28] MEDS: ALBUTEROL SO4 8 GM HFA INHALER IH PRN ×3 (06:09→18:19)
[2019-08-28] MEDS: metFORMIN HCL 500 MG TABLET (FP) PO SCH ×2 (06:11→17:03)
[2019-08-28] MEDS ORDERED: metFORMIN HCL 500 MG TABLET (FP) PO SCH (07:00)
[2019-08-28] MEDS: NICOTINE 14 MG/24 HOURS TOPICAL PATCH TD SCH (09:55)
[2019-08-28] MEDS: GABAPENTIN 300 MG CAPSULE (FP) PO SCH ×2 (09:55→21:20)
[2019-08-28] MEDS: ASPIRIN 81 MG CHEWABLE TABLETS PO SCH (09:55)
[2019-08-28] MEDS: BRIMONIDINE TARTRATE 0.15% OPHTHALMIC 5 ML BOTTLE OU SCH ×2 (09:56→21:20)
[2019-08-28] MEDS: PRENATAL VITAMINS W/ FOLIC ACID TABLET (FP) PO SCH (09:56)
[2019-08-28] MEDS: TIMOLOL 0.5% OPHTHALMIC SOL 5 ML BOTTLE OU SCH ×2 (09:56→21:20)
[2019-08-28] MEDS ORDERED: METHADONE HCL 5 MG TABLET (FOR DETOX USE ONLY) PO ONE (10:00)
[2019-08-28] MEDS ORDERED: FLU VACCINE QUAD 60 MCG/0.5 ML (MDV 19-20) IM ONE (12:00)
[2019-08-28 12:11] LABS: HEMATOCRIT 39.1 % (35.4-49); MCH 36.3 pg (25.7-33.7); MCHC 33.1 g/dl (32.0-35.9); MEAN CELL VOLUME 109.6 fl (80-96); PLATELET COUNT 262 K/MM3 (134-434); RBC 3.57 M/mm3 (4.00-5.60); RDW 14.3 % (11.9-15.9); WHITE BLOOD COUNT 6.7 K/mm3 (4.0-10.0)
[2019-08-28 12:24] LABS: ALBUMIN 3.6 g/dl (3.4-5.0); BILIRUBIN,TOTAL 0.7 mg/dL (0.2-1); BLOOD UREA NITROGEN 14.1 mg/dL (7-18); CALCIUM 9.2 mg/dL (8.5-10.1); CREATININE 0.9 mg/dL (0.55-1.3); TOT PROT 6.9 g/dl (6.4-8.2)
--- NOTE | 2019-08-28 14:39 | PN ---
[facility] COWS - Scale Resting Pulse: 0= [place] 80 or Below Sweatin=Flushed/Facial Moisture Restless Observation: 1= Difficult to Sit Still Pupil Size: 0= Normal to Room Light Bone or Joint Aches: 2= Severe Diffuse Aches Runny Nose/ Eye Tearin= Runny Nose/Eyes GI Upset > 30mins: 2= Nausea/Diarrhea Tremor Observation of Outstretched Hands: 2= Slight Tremor Visible Yawning Observation: 0= None Anxiety or Irritability: 2=Irritable/Anxious Goose Flesh Skin: 0=Smooth Skin COWS Score: 13 [facility] Progress Note (SOAP) Subjective: Interrupted sleep Objective: 08/28/19 14:38 Last Vital Signs Temp Pulse Resp BP Pulse Ox 97.7 F 73 16 126/92 08/28/19 13:36 08/28/19 13:36 08/28/19 13:36 08/28/19 13:36 Elevated b/p noted: denies htn, presently on clonidine prn Laboratory Tests 08/27/19 08/28/19 08/28/19 17:26 06:04 07:35 WBC 6.7 RBC 3.57 L Hgb 13.0 Hct 39.1 MCV 109.6 H MCH 36.3 H MCHC 33.1 RDW 14.3 Plt Count 262 MPV 9.0 Sodium Potassium Chloride Carbon Dioxide Anion Gap BUN Creatinine Est GFR (CKD-EPI)AfAm Est GFR (CKD-EPI)NonAf POC Glucometer 117 107 Random Glucose Calcium Total Bilirubin AST ALT Alkaline Phosphatase Total Protein Albumin RPR Titer 08/28/19 08/28/19 07:35 07:35 WBC RBC Hgb Hct MCV MCH MCHC RDW Plt Count MPV Sodium 138 Potassium 4.0 Chloride 105 Carbon Dioxide 31 Anion Gap 2 L BUN 14.1 Creatinine 0.9 Est GFR (CKD-EPI)AfAm 105.72 Est GFR (CKD-EPI)NonAf 91.22 POC Glucometer Random Glucose 91 Calcium 9.2 Total Bilirubin 0.7 AST 17 ALT 33 Alkaline Phosphatase 126 H Total Protein 6.9 Albumin 3.6 RPR Titer Nonreactive Labs reviewed Assessment: 08/28/19 14:40 Withdrawal sxs Noted with elevated b/p Plan: Continue detox Encouraged PO water intake Elevated b/p: continue clonidine prn
[2019-08-28] MEDS: THIAMINE HCL 100 MG TABLET (FP) PO SCH (21:20)
[2019-08-28] MEDS: ATORVASTATIN CA 40 MG TABLET (FP) PO SCH (21:20)
[2019-08-28] MEDS: MELATONIN 5 MG TABLETS PO PRN (21:22)
[2019-08-29] MEDS: ALBUTEROL SO4 8 GM HFA INHALER IH PRN ×4 (06:04→21:22)
[2019-08-29] MEDS: metFORMIN HCL 500 MG TABLET (FP) PO SCH ×2 (06:06→17:02)
[2019-08-29] MEDS: NICOTINE 14 MG/24 HOURS TOPICAL PATCH TD SCH (09:40)
[2019-08-29] MEDS: BRIMONIDINE TARTRATE 0.15% OPHTHALMIC 5 ML BOTTLE OU SCH ×2 (09:40→21:17)
[2019-08-29] MEDS: TIMOLOL 0.5% OPHTHALMIC SOL 5 ML BOTTLE OU SCH ×2 (09:41→21:18)
[2019-08-29] MEDS: GABAPENTIN 300 MG CAPSULE (FP) PO SCH ×2 (09:42→21:17)
[2019-08-29] MEDS: PRENATAL VITAMINS W/ FOLIC ACID TABLET (FP) PO SCH (09:42)
[2019-08-29] MEDS: ASPIRIN 81 MG CHEWABLE TABLETS PO SCH (09:42)
[2019-08-29] MEDS ORDERED: METHADONE HCL 10 MG TABLET (FOR DETOX USE ONLY) PO ONE (10:00)
--- NOTE | 2019-08-29 10:37 | PN ---
S COWS - Scale Resting Pulse: 0= [place] 80 or Below Sweatin= No chills or Flushing Restless Observation: 1= Difficult to Sit Still Pupil Size: 1= Pupils >than Normal Bone or Joint Aches: 1= Mild Discomfort Runny Nose/ Eye Tearin= Nasal Congestion GI Upset > 30mins: 1= Stomach Cramp Tremor Observation of Outstretched Hands: 2= Slight Tremor Visible Yawning Observation: 1= 1-2x During Session Anxiety or Irritability: 2=Irritable/Anxious Goose Flesh Skin: 0=Smooth Skin COWS Score: 10 [facility] Progress Note (SOAP) Subjective: alert,irritable,anxious,interrupted sleep,pain in the body,extremities Objective: 08/29/19 10:36 Vital Signs Temperature 98.1 F 08/29/19 09:14 Pulse Rate 77 08/29/19 09:14 Respiratory Rate 18 08/29/19 09:14 Blood Pressure 123/63 08/29/19 09:14 O2 Sat by Pulse Oximetry (%) Laboratory Last Values WBC 6.7 K/mm3 (4.0-10.0) 08/28/19 07:35 RBC 3.57 M/mm3 (4.00-5.60) L 08/28/19 07:35 Hgb 13.0 GM/dL (11.7-16.9) 08/28/19 07:35 Hct 39.1 % (35.4-49) 08/28/19 07:35 MCV 109.6 fl (80-96) H 08/28/19 07:35 MCH 36.3 pg (25.7-33.7) H 08/28/19 07:35 MCHC 33.1 g/dl (32.0-35.9) 08/28/19 07:35 RDW 14.3 % (11.9-15.9) 08/28/19 07:35 Plt Count 262 K/MM3 (134-434) 08/28/19 07:35 MPV 9.0 fl (7.5-11.1) 08/28/19 07:35 Sodium 138 mmol/L (136-145) 08/28/19 07:35 Potassium 4.0 mmol/L (3.5-5.1) 08/28/19 07:35 Chloride 105 mmol/L (98-107) 08/28/19 07:35 Carbon Dioxide 31 mmol/L (21-32) 08/28/19 07:35 Anion Gap 2 MMOL/L (8-16) L 08/28/19 07:35 BUN 14.1 mg/dL (7-18) 08/28/19 07:35 Creatinine 0.9 mg/dL (0.55-1.3) 08/28/19 07:35 Est GFR (CKD-EPI)AfAm 105.72 08/28/19 07:35 Est GFR (CKD-EPI)NonAf 91.22 08/28/19 07:35 POC Glucometer 98 UNITS (80-120) 08/29/19 06:03 Random Glucose 91 mg/dL (74-106) 08/28/19 07:35 Calcium 9.2 mg/dL (8.5-10.1) 08/28/19 07:35 Total Bilirubin 0.7 mg/dL (0.2-1) 08/28/19 07:35 AST 17 U/L (15-37) 08/28/19 07:35 ALT 33 U/L (13-61) 08/28/19 07:35 Alkaline Phosphatase 126 U/L (45-117) H 08/28/19 07:35 Total Protein 6.9 g/dl (6.4-8.2) 08/28/19 07:35 Albumin 3.6 g/dl (3.4-5.0) 08/28/19 07:35 RPR Titer Nonreactive (NONREACTIVE) 08/28/19 07:35 Assessment: 08/29/19 10:36 withdrawal symptom Plan: continue detox methadone regimen,bgm monitoring
[2019-08-29] MEDS: THIAMINE HCL 100 MG TABLET (FP) PO SCH (21:17)
[2019-08-29] MEDS: ATORVASTATIN CA 40 MG TABLET (FP) PO SCH (21:17)
[2019-08-29] MEDS: MELATONIN 5 MG TABLETS PO PRN (21:20)
[2019-08-30] MEDS ORDERED: METHADONE HCL 5 MG TABLET (FOR DETOX USE ONLY) PO ONE (06:00)
[2019-08-30] MEDS: metFORMIN HCL 500 MG TABLET (FP) PO SCH (06:13)
--- NOTE | 2019-08-30 09:02 | DS ---
[facility] Detox Discharge Summary Admission Date: 08/27/19 Discharge Date: 08/30/19 - History Present History: Alcohol Dependence, Cannabis Dependence, Cocaine Dependence - Physical Exam Results Vital Signs: Vital Signs Temperature 98.2 F 08/30/19 05:58 Pulse Rate 69 08/30/19 05:58 Respiratory Rate 18 08/30/19 05:58 Blood Pressure 140/79 08/30/19 05:58 O2 Sat by Pulse Oximetry (%) - Treatment Hospital Course: Detox Protocol Followed, Detoxed Safely, Responded well, Discharged Condition Good, Rehab Referral Accepted Patient has Accepted a Rehab Referral to: pt referred to inpatient rehab; [facility] - Medication Discharge Medications: Ambulatory Orders Aspirin [ASA -] 81 mg PO DAILY 05/18/18 Meloxicam [Mobic] 15 mg PO DAILY 05/18/18 Simvastatin [Zocor -] 40 mg PO HS 05/18/18 Brimonidine Tartrate [Alphagan P 0.1% -] 1 drop OU BID #1 bottle 08/03/18 Metformin HCl [Glucophage] 1,000 mg PO BID #60 tablet 08/03/18 Timolol Maleate 0.5% Gfs [Timoptic Xe 0.5%] 1 drop OU BID #1 bottle 08/03/18 Thiamine HCl [Vitamin B-1] 100 mg PO DAILY 07/31/19 Albuterol Sulfate Inhaler - [Ventolin Hfa Inhaler -] 2 inh PO Q4H PRN 08/27/19 Gabapentin [Neurontin -] 300 mg PO Q8H 08/27/19 - Diagnosis (1) Asthma Current Visit: Yes Status: Chronic Qualifiers: Asthma severity: mild Asthma persistence: intermittent Asthma complication type: with status asthmaticus Qualified Code(s): J45.22 - Mild intermittent asthma with status asthmaticus (2) Cannabis dependence Current Visit: Yes Status: Chronic (3) Cocaine dependence Current Visit: Yes Status: Chronic Qualifiers: Substance use status: uncomplicated Qualified Code(s): F14.20 - Cocaine dependence, uncomplicated (4) DM2 (diabetes mellitus, type 2) Current Visit: Yes Status: Chronic Qualifiers: Diabetes mellitus buttermilk drier operator insulin use: without buttermilk drier operator use Diabetes mellitus complication status: with other specified complication Qualified Code (s): E11.69 - Type 2 diabetes mellitus with other specified complication (5) Diabetic neuropathy Current Visit: Yes Status: Chronic Qualifiers: Diabetes mellitus type: type 2 Diabetes mellitus complication detail: diabetic polyneuropathy Qualified Code(s): E11.42 - Type 2 diabetes mellitus with diabetic polyneuropathy (6) Glaucoma Current Visit: Yes Status: Chronic Qualifiers: Glaucoma type: unspecified Laterality: bilateral Qualified Code(s): H40.9 - Unspecified glaucoma (7) [place] (hard of hearing) Current Visit: Yes Status: Chronic Qualifiers: Hearing loss type: unspecified Laterality: unspecified laterality Qualified Code(s): H91.90 - Unspecified hearing loss, unspecified ear (8) Nicotine dependence Current Visit: Yes Status: Chronic Qualifiers: Nicotine product type: cigarettes Substance use status: uncomplicated Qualified Code(s): F17.210 - Nicotine dependence, cigarettes, uncomplicated (9) Opioid dependence with withdrawal Current Visit: Yes Status: Chronic (10) Substance induced mood disorder Current Visit: No Status: Acute (11) Substance-induced sleep disorder Current Visit: No Status: Acute (12) Alcohol dependence with uncomplicated withdrawal Current Visit: Yes Status: Chronic (13) Hyperlipidemia Current Visit: No Status: Chronic Qualifiers: Hyperlipidemia type: unspecified Qualified Code(s): E78.5 - Hyperlipidemia , unspecified (14) Hypertension Current Visit: No Status: Chronic Qualifiers: Hypertension type: unspecified Qualified Code(s): I10 - Essential (primary ) hypertension - AMA Did Patient Leave Against Medical Advice: No
[2019-08-30 09:19] VITALS: BP 138/69; PULSE 75; TEMP 97.8
[2019-08-30] MEDS: PRENATAL VITAMINS W/ FOLIC ACID TABLET (FP) PO SCH (09:58)
[2019-08-30] MEDS: TIMOLOL 0.5% OPHTHALMIC SOL 5 ML BOTTLE OU SCH (09:58)
[2019-08-30] MEDS: ASPIRIN 81 MG CHEWABLE TABLETS PO SCH (09:58)
[2019-08-30] MEDS: GABAPENTIN 300 MG CAPSULE (FP) PO SCH (09:58)
[2019-08-30] MEDS: BRIMONIDINE TARTRATE 0.15% OPHTHALMIC 5 ML BOTTLE OU SCH (09:58)
[2019-08-30] MEDS: NICOTINE 14 MG/24 HOURS TOPICAL PATCH TD SCH (10:01)
[2019-08-30] MEDS: ALBUTEROL SO4 8 GM HFA INHALER IH PRN (10:14)
== END 2019-08-30 11:30 | disposition home or self-care (01) | DRG 773 ==
LOC: YASAS 11:06 → Y6N 13:54
PROVIDERS: ADMIT Allergy & Immunology; ATTEND Allergy & Immunology
PROC: HZ2ZZZZ Detoxification Services for Substance Abuse Treatment (ICD-10-PCS; principal; 2019-08-27)
DX: F10.230 Alcohol dependence with withdrawal, uncomplicated (principal); F11.23 Opioid dependence with withdrawal; F14.20 Cocaine dependence, uncomplicated; F12.20 Cannabis dependence, uncomplicated; F17.210 Nicotine dependence, cigarettes, uncomplicated; F19.282 Other psychoactive substance dependence with psychoactive substance-induced sleep disorder; F19.24 Other psychoactive substance dependence with psychoactive substance-induced mood disorder; F32.9 Major depressive disorder, single episode, unspecified; I10 Essential (primary) hypertension; E78.5 Hyperlipidemia, unspecified; E11.42 Type 2 diabetes mellitus with diabetic polyneuropathy; Z79.84 Long term (current) use of oral hypoglycemic drugs; J45.22 Mild intermittent asthma with status asthmaticus; H40.9 Unspecified glaucoma; H91.90 Unspecified hearing loss, unspecified ear
CPT/HCPCS: 36415; 80053; 82962; 85027; 86593; Q2036

== ENCOUNTER 2019-09-19 09:37 | Inpatient (IN) | payer OTHER ==
[2019-09-19 10:35] VITALS: BMI 23.7
--- NOTE | 2019-09-19 11:13 | HP ---
COWS - Scale Resting Pulse: 1= SD 81-100 Sweatin= Chills/Flushing Restless Observation: 1= Difficult to Sit Still Pupil Size: 1= Pupils >than Normal Bone or Joint Aches: 4=Acute Joint/Muscle Pain Runny Nose/ Eye Tearin= Runny Nose/Eyes GI Upset > 30mins: 1= Stomach Cramp Tremor Observation: 2= Slight Tremor Visible Yawning Observation: 1= 1-2x During Session Anxiety or Irritability: 2=Irritable/Anxious Goose Flesh Skin: 0=Smooth Skin COWS Score: 16 CIWA Score - Admission Criteria OASAS Guidelines: Admission for Medically Managed Detox: Requires at least one of the followin. CIWA greater than 12 2. Seizures within the past 24 hours 3. Delirium tremens within the past 24 hours 4. Hallucinations within the past 24 hours 5. Acute intervention needed for co occurring medical disorder 6. Acute intervention needed for co occurring psychiatric disorder 7. Severe withdrawal that cannot be handled at a lower level of care (continued vomiting, continued diarrhea, abnormal vital signs) requiring intravenous medication and/or fluids 8. Admitting History and Physical - Admission Chief Complaint: "I want to help myself and I am tired of living the way I'm living." History of Present Illness: 64 yo gentleman here for detox from opiates, also drinks alcohol but states he does not get withdrawals from not drinking alcohol only not using opiates. He is using 2 bags of heroin daily, last used yesterday. He denies overdose recently, had an overdose 5 months. He is drinking 2 40 ounces of beer daily, last drank this morning. Denies seizures but does have black outs and has had history of overdose. Lives with his friend. This is one of multiple admissions for treatment - he was here last 08/29/19 but left after 3 days due to no halfway rehab bed was available. He is declining a NCS diet - states his diabetes is controlled with his medication and never goes over 150. Smokes 5 ciggarettes per day. PMH: Asthma, DM, HLD Psurg: Patient is homeless and in long-term system. History Source: Patient Limitations to Obtaining History: No Limitations - Past Medical History Pulmonary: Yes: Asthma Endocrine: Yes: Diabetes Mellitus (well controlled - eats regular diet) - Smoking History Smoking history: Current every day smoker Have you smoked in the past 12 months: Yes Aproximately how many cigarettes per day: 8 - Alcohol/Substance Use Hx Alcohol Use: Yes - Social History ADL: Support Services (disabled) Admission ROS [facility] Allergies/Adverse Reactions: Allergies Allergy/AdvReac Type Severity Reaction Status Date / Time No Known Allergies Allergy Verified 09/19/19 10:24 Exam Limitations: No Limitations - Ebola screening Have you traveled outside of the country in the last 21 days: No Have you had contact with anyone from an Ebola affected area: No Have you been sick,other than usual withdrawal symptoms: No Do you have a fever: No - Review of Systems Constitutional: Chills EENT: reports: No Symptoms Reported Respiratory: reports: No Symptoms reported Cardiac: reports: No Symptoms Reported GI: reports: No Symptoms Reported : reports: No Symptoms Reported Musculoskeletal: reports: No Symptoms Reported Integumentary: reports: No Symptoms Reported Neuro: reports: No Symptoms reported Endocrine: reports: No Symptoms Reported Hematology: reports: No Symptoms Reported Psychiatric: reports: Judgement Intact, Mood/Affect Appropiate, Orientated x3 Other Systems: Reviewed and Negative Patient History - Patient Medical History Hx Anemia: No Hx Asthma: Yes Hx Chronic Obstructive Pulmonary Disease (COPD): No Hx Cancer: No Hx Cardiac Disorders: No Hx Congestive Heart Failure: No Hx Hypertension: No Hx Hypercholesterolemia: Yes (on med) Hx Pacemaker: No HX Cerebrovascular Accident: No Hx Seizures: No Hx Dementia: No Hx Diabetes: Yes Hx Gastrointestinal Disorders: No Hx Liver Disease: No Hx Genitourinary Disorders: No Hx Sexually Transmitted Disorders: No Hx Renal Disease (ESRD): No Hx Thyroid Disease: No Hx Human Immunodeficiency Virus (HIV): No (last 06/22 negative) Hx Hepatitis C: No Hx Depression: No Hx Suicide Attempt: No Hx Bipolar Disorder: No Hx Schizophrenia: No - Patient Surgical History Past Surgical History: No Hx Neurologic Surgery: No Hx Cataract Extraction: No Hx Cardiac Surgery: No Hx Lung Surgery: No Hx Breast Surgery: No Hx Breast Biopsy: No Hx Abdominal Surgery: No Hx Appendectomy: No Hx Cholecystectomy: No Hx Genitourinary Surgery: No Hx Section: No Hx Orthopedic Surgery: No Anesthesia Reaction: No - PPD History Previous Implant?: Yes Documented Results: Negative w/proof Implanted On Prior R Admission?: Yes Date: 08/29/19 Results: 0 mm PPD to be Administered?: No - Smoking Cessation Smoking history: Current every day smoker Have you smoked in the past 12 months: Yes Aproximately how many cigarettes per day: 8 Hx Chewing Tobacco Use: No Initiated information on smoking cessation: Yes 'Breaking Loose' booklet given: 09/19/19 - Substances abused Alcohol Substance route: Oral Frequency: Daily Amount used: 1-2 40oz. cans beer Age of first use: 15 Date of last use: 09/19/19 Heroin Substance route: Inhalation Frequency: Daily Amount used: 1 bags Age of first use: 61 Date of last use: 09/18/19 Crack Substance route: Smoking Frequency: 3-6 times per week Amount used: 1 bag Age of first use: 33 Date of last use: 09/18/19 Marijuana/Hashish Substance route: Smoking Frequency: 1-2 times per week Amount used: $5 Age of first use: 16 Date of last use: 09/05/19 Admission Physical Exam S - Vital Signs Vital Signs: Vital Signs - 24 hr 09/19/19 09/19/19 10:23 10:40 Temperature 98.7 F 98.7 F Pulse Rate 90 90 Respiratory 20 20 Rate Blood Pressure 127/72 127/72 - Physical General Appearance: Yes: Disheveled, Thin, Irritable, Sweating, Anxious HEENTM: Yes: EOMI, Hearing grossly Normal, Normal ENT Inspection, Normocephalic , Normal Voice, KELVIN, Pharynx Normal, Tm's normal Respiratory: Yes: Chest Non-Tender, Lungs Clear, Normal Breath Sounds, No Respiratory Distress, No Accessory Muscle Use Neck: Yes: No masses,lesions,Nodules, Supple, Trachea in good position Breast: Yes: Within Normal Limits Cardiology: Yes: Regular Rhythm, Regular Rate, S1, S2 Abdominal: Yes: Normal Bowel Sounds, Non Tender, Flat, Soft Genitourinary: Yes: Within Normal Limits Back: Yes: Normal Inspection Musculoskeletal: Yes: full range of Motion, Gait Steady, Pelvis Stable Extremities: Yes: Normal Capillary Refill, Normal Inspection, Normal Range of Motion, Non-Tender Neurological: Yes: rip sawyer II-XII NML intact, Fully Oriented, Alert, Motor Strength 5/5, Normal Mood/Affect, Normal Response Integumentary: Yes: Normal Color, Warm Lymphatic: Yes: Within Normal Limits - Diagnostic (1) Alcohol dependence with uncomplicated withdrawal Current Visit: Yes Status: Chronic (2) Asthma Current Visit: Yes Status: Chronic Qualifiers: Asthma severity: mild Asthma persistence: intermittent Asthma complication type: with status asthmaticus Qualified Code(s): J45.22 - Mild intermittent asthma with status asthmaticus (3) DM2 (diabetes mellitus, type 2) Current Visit: Yes Status: Chronic Qualifiers: Diabetes mellitus termite inspector insulin use: without halfway use Diabetes mellitus complication status: with other specified complication Qualified Code (s): E11.69 - Type 2 diabetes mellitus with other specified complication (4) [place] (hard of hearing) Current Visit: Yes Status: Chronic Qualifiers: Hearing loss type: unspecified Laterality: unspecified laterality Qualified Code(s): H91.90 - Unspecified hearing loss, unspecified ear (5) Hyperlipidemia Current Visit: Yes Status: Chronic Qualifiers: Hyperlipidemia type: unspecified Qualified Code(s): E78.5 - Hyperlipidemia , unspecified (6) Hypertension Current Visit: Yes Status: Chronic Qualifiers: Hypertension type: unspecified Qualified Code(s): I10 - Essential (primary ) hypertension (7) Nicotine dependence Current Visit: Yes Status: Chronic Qualifiers: Nicotine product type: cigarettes Substance use status: uncomplicated Qualified Code(s): F17.210 - Nicotine dependence, cigarettes, uncomplicated (8) Opioid dependence with withdrawal Current Visit: Yes Status: Chronic Cleared for Admission [facility] - Detox or Rehab Detox Regimen/Protocol: Methadone/Librium Screened but not Admitted - Documentation of Visit Screened but not Admitted: No Breathalyzer - Breathalyzer Breathalyzer: 0.088 Urine Drug Screen - Test Device Lot number: [id number] Expiration date: 05/04/21 - Control Is test valid?: Yes - Results Drug screen NEGATIVE: No Urine drug screen results: CANDE-Cocaine Inpatient Rehab Admission - Rehab Decision to Admit Inpatient rehab admission?: No
[2019-09-19] MEDS ORDERED: ACETAMINOPHEN 325 MG TABLET (FP) PO PRN ×2 (11:19)
[2019-09-19] MEDS ORDERED: MENTHOL/PHENOL 1 EACH UD MM PRN (11:19)
[2019-09-19] MEDS ORDERED: cloNIDine HCL 0.1 MG TABLET PO PRN (11:19)
[2019-09-19] MEDS ORDERED: MAGNESIUM HYDROX 2400MG/30ML ORAL SUSPENSION 30 ML CUP PO PRN (11:19)
[2019-09-19] MEDS ORDERED: MELATONIN 5 MG TABLETS PO PRN (11:19)
[2019-09-19] MEDS ORDERED: chlordiazePOXIDE HCL 10 MG CAPSULE PO PRN (11:19)
[2019-09-19] MEDS ORDERED: MAG HYDROX/AL HYDROX/SIMETH 30 ML UNIT-DOSE CUP PO PRN (11:19)
[2019-09-19] MEDS ORDERED: IBUPROFEN 400 MG TABLET (FP) PO PRN (11:19)
[2019-09-19] MEDS ORDERED: BISMUTH SUBSALICYLATE 524 MG/30 ML UD PO PRN (11:19)
[2019-09-19] MEDS ORDERED: hydrOXYzine PAMOATE 25 MG CAPSULE (FP) PO PRN (11:19)
[2019-09-19] MEDS ORDERED: MAGNESIUM CITRATE 300 ML BOTTLE PO PRN (11:19)
[2019-09-19] MEDS ORDERED: METHOCARBAMOL 500 MG TABLET PO PRN (11:19)
[2019-09-19] MEDS ORDERED: METHADONE HCL 10 MG TABLET (FOR DETOX USE ONLY) PO ONE (11:19)
[2019-09-19] MEDS: chlordiazePOXIDE HCL 25 MG CAPSULE PO SCH ×2 (13:52→21:33)
[2019-09-19] MEDS: GABAPENTIN 300 MG CAPSULE (FP) PO SCH ×2 (13:52→21:33)
[2019-09-19 14:52] LABS: HEMATOCRIT 38.9 % (35.4-49); MCH 36.5 pg (25.7-33.7); MCHC 33.5 g/dl (32.0-35.9); MEAN PLT VOLUME 9.1 fl (7.5-11.1); PLATELET COUNT 219 K/MM3 (134-434); RBC 3.57 M/mm3 (4.00-5.60); WHITE BLOOD COUNT 4.9 K/mm3 (4.0-10.0)
[2019-09-19 15:02] LABS: ALBUMIN 3.6 g/dl (3.4-5.0); BILIRUBIN,TOTAL 0.4 mg/dL (0.2-1); BLOOD UREA NITROGEN 11.3 mg/dL (7-18); CALCIUM 9.3 mg/dL (8.5-10.1); CREATININE 0.9 mg/dL (0.55-1.3); POTASSIUM 3.6 mmol/L (3.5-5.1)
[2019-09-19] MEDS: metFORMIN HCL 500 MG TABLET (FP) PO SCH (17:40)
[2019-09-19] MEDS: BRIMONIDINE TARTRATE 0.1% OPHTHALMIC 5 ML BOTTLE OU SCH (21:32)
[2019-09-19] MEDS: TIMOLOL MALEATE 0.5% GFS OPHTHALMIC SOLN 5 ML BOTTLE OU SCH (21:33)
[2019-09-19] MEDS: THIAMINE HCL 100 MG TABLET (FP) PO SCH (21:33)
[2019-09-20] MEDS: GABAPENTIN 300 MG CAPSULE (FP) PO SCH ×3 (05:35→21:55)
[2019-09-20] MEDS: chlordiazePOXIDE HCL 25 MG CAPSULE PO SCH ×3 (05:35→21:52)
[2019-09-20] MEDS: metFORMIN HCL 500 MG TABLET (FP) PO SCH ×2 (06:32→16:56)
[2019-09-20] MEDS: ALBUTEROL SO4 8 GM HFA INHALER IH PRN ×3 (07:58→16:57)
--- NOTE | 2019-09-20 09:36 | PN ---
[facility] CIWA - CIWA Score Nausea/Vomitin-Mild Nausea/No Vomiting Muscle Tremors: 2 Anxiety: 2 Agitation: 2 Paroxysmal Sweats: 1-Minimal Palms Moist Orientation: 0-Oriented Tacttile Disturbances: 1-Very Mild Itch/Numbness Auditory Disturbances: 0-None Visual Disturbances: 0-None Headache: 1-Very Mild CIWA-Ar Total Score: 10 S Progress Note (SOAP) Subjective: alert,irritable ,anxious,interrupted sleep,abdominal cramp,diarrhea,pain in the body Objective: 09/20/19 09:32 Vital Signs Temperature 97.8 F 09/20/19 09:21 Pulse Rate 89 09/20/19 09:21 Respiratory Rate 18 09/20/19 09:21 Blood Pressure 148/80 09/20/19 09:21 O2 Sat by Pulse Oximetry (%) 09/20/19 09:33 Laboratory Last Values WBC 4.9 K/mm3 (4.0-10.0) 09/19/19 12:15 RBC 3.57 M/mm3 (4.00-5.60) L 09/19/19 12:15 Hgb 13.0 GM/dL (11.7-16.9) 09/19/19 12:15 Hct 38.9 % (35.4-49) 09/19/19 12:15 MCV 109.0 fl (80-96) H 09/19/19 12:15 MCH 36.5 pg (25.7-33.7) H 09/19/19 12:15 MCHC 33.5 g/dl (32.0-35.9) 09/19/19 12:15 RDW 14.0 % (11.9-15.9) 09/19/19 12:15 Plt Count 219 K/MM3 (134-434) 09/19/19 12:15 MPV 9.1 fl (7.5-11.1) 09/19/19 12:15 Sodium 146 mmol/L (136-145) H 09/19/19 12:15 Potassium 3.6 mmol/L (3.5-5.1) 09/19/19 12:15 Chloride 112 mmol/L (98-107) H 09/19/19 12:15 Carbon Dioxide 28 mmol/L (21-32) 09/19/19 12:15 Anion Gap 6 MMOL/L (8-16) L 09/19/19 12:15 BUN 11.3 mg/dL (7-18) 09/19/19 12:15 Creatinine 0.9 mg/dL (0.55-1.3) 09/19/19 12:15 Est GFR (CKD-EPI)AfAm 105.72 09/19/19 12:15 Est GFR (CKD-EPI)NonAf 91.22 09/19/19 12:15 POC Glucometer 114 UNITS (80-120) 09/20/19 05:31 Random Glucose 102 mg/dL (74-106) 09/19/19 12:15 Calcium 9.3 mg/dL (8.5-10.1) 09/19/19 12:15 Total Bilirubin 0.4 mg/dL (0.2-1) 09/19/19 12:15 AST 16 U/L (15-37) 09/19/19 12:15 ALT 33 U/L (13-61) 09/19/19 12:15 Alkaline Phosphatase 72 U/L (45-117) 09/19/19 12:15 Total Protein 7.0 g/dl (6.4-8.2) 09/19/19 12:15 Albumin 3.6 g/dl (3.4-5.0) 09/19/19 12:15 RPR Titer Nonreactive (NONREACTIVE) 09/19/19 12:15 Assessment: 09/20/19 09:34 withdrawal symptom Plan: continue detox librium regimen,glucerna 1 can po bid,cane for ambulatory aid, psychiatric consultaion for anxiety,depression,insomnia
[2019-09-20] MEDS: TIMOLOL MALEATE 0.5% GFS OPHTHALMIC SOLN 5 ML BOTTLE OU SCH ×2 (09:55→10:11)
[2019-09-20] MEDS ORDERED: METHADONE (DETOX) 20 MG, METHADONE (DETOX) 5 MG PO ONE (10:00)
[2019-09-20] MEDS ORDERED: PATIENT'S OWN MEDICATION (NON-FORMULARY) (Meloxicam [Mobic] 15 MG) PO SCH (10:00)
[2019-09-20] MEDS: ASPIRIN 81 MG CHEWABLE TABLETS PO SCH (10:11)
[2019-09-20] MEDS: PRENATAL VITAMINS W/ FOLIC ACID TABLET (FP) PO SCH (10:11)
[2019-09-20] MEDS: BRIMONIDINE TARTRATE 0.1% OPHTHALMIC 5 ML BOTTLE OU SCH ×2 (10:11→21:59)
[2019-09-20] MEDS: NICOTINE 7 MG/24 HOURS TOPICAL PATCH TD SCH (10:11)
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
[2019-09-20] MEDS: THIAMINE HCL 100 MG TABLET (FP) PO SCH (21:55)
[2019-09-21] MEDS: GABAPENTIN 300 MG CAPSULE (FP) PO SCH ×3 (05:48→22:19)
[2019-09-21] MEDS: chlordiazePOXIDE 5 MG CAPSULE PO SCH ×3 (05:48→22:18)
[2019-09-21] MEDS: metFORMIN HCL 500 MG TABLET (FP) PO SCH ×2 (07:18→16:34)
--- NOTE | 2019-09-21 09:33 | PN ---
[facility] CIWA - CIWA Score Nausea/Vomitin-Mild Nausea/No Vomiting Muscle Tremors: 1-None Visible, but [place] Anxiety: 2 Agitation: 2 Paroxysmal Sweats: No Perspiration Orientation: 0-Oriented Tacttile Disturbances: 1-Very Mild Itch/Numbness Auditory Disturbances: 0-None Visual Disturbances: 0-None Headache: 1-Very Mild CIWA-Ar Total Score: 8 BHS Progress Note (SOAP) Subjective: alert,irritable,anxious,interrupted sleep,pain in the body, Objective: 09/21/19 09:32 Laboratory Last Values WBC 4.9 K/mm3 (4.0-10.0) 09/19/19 12:15 RBC 3.57 M/mm3 (4.00-5.60) L 09/19/19 12:15 Hgb 13.0 GM/dL (11.7-16.9) 09/19/19 12:15 Hct 38.9 % (35.4-49) 09/19/19 12:15 MCV 109.0 fl (80-96) H 09/19/19 12:15 MCH 36.5 pg (25.7-33.7) H 09/19/19 12:15 MCHC 33.5 g/dl (32.0-35.9) 09/19/19 12:15 RDW 14.0 % (11.9-15.9) 09/19/19 12:15 Plt Count 219 K/MM3 (134-434) 09/19/19 12:15 MPV 9.1 fl (7.5-11.1) 09/19/19 12:15 Sodium 146 mmol/L (136-145) H 09/19/19 12:15 Potassium 3.6 mmol/L (3.5-5.1) 09/19/19 12:15 Chloride 112 mmol/L (98-107) H 09/19/19 12:15 Carbon Dioxide 28 mmol/L (21-32) 09/19/19 12:15 Anion Gap 6 MMOL/L (8-16) L 09/19/19 12:15 BUN 11.3 mg/dL (7-18) 09/19/19 12:15 Creatinine 0.9 mg/dL (0.55-1.3) 09/19/19 12:15 Est GFR (CKD-EPI)AfAm 105.72 09/19/19 12:15 Est GFR (CKD-EPI)NonAf 91.22 09/19/19 12:15 POC Glucometer 135 UNITS (80-120) 09/21/19 05:47 Random Glucose 102 mg/dL (74-106) 09/19/19 12:15 Calcium 9.3 mg/dL (8.5-10.1) 09/19/19 12:15 Total Bilirubin 0.4 mg/dL (0.2-1) 09/19/19 12:15 AST 16 U/L (15-37) 09/19/19 12:15 ALT 33 U/L (13-61) 09/19/19 12:15 Alkaline Phosphatase 72 U/L (45-117) 09/19/19 12:15 Total Protein 7.0 g/dl (6.4-8.2) 09/19/19 12:15 Albumin 3.6 g/dl (3.4-5.0) 09/19/19 12:15 RPR Titer Nonreactive (NONREACTIVE) 09/19/19 12:15 Assessment: 09/21/19 09:32 withdrawal symptom Plan: continue detox,history of hypercholesterolemia,lipitor 20 mgs po hs
[2019-09-21] MEDS ORDERED: METHADONE HCL 10 MG TABLET (FOR DETOX USE ONLY) PO ONE (10:00)
[2019-09-21] MEDS: ASPIRIN 81 MG CHEWABLE TABLETS PO SCH (10:03)
[2019-09-21] MEDS: TIMOLOL MALEATE 0.5% GFS OPHTHALMIC SOLN 5 ML BOTTLE OU SCH ×2 (10:03→22:17)
[2019-09-21] MEDS: NICOTINE 7 MG/24 HOURS TOPICAL PATCH TD SCH (10:03)
[2019-09-21] MEDS: PRENATAL VITAMINS W/ FOLIC ACID TABLET (FP) PO SCH (10:03)
[2019-09-21] MEDS: BRIMONIDINE TARTRATE 0.1% OPHTHALMIC 5 ML BOTTLE OU SCH ×2 (10:04→22:17)
[2019-09-21] MEDS: ALBUTEROL SO4 8 GM HFA INHALER IH PRN (10:05)
[2019-09-21] MEDS: ATORVASTATIN CA 20 MG TABLET (FP) PO SCH (22:17)
[2019-09-21] MEDS: THIAMINE HCL 100 MG TABLET (FP) PO SCH (22:18)
[2019-09-21] MEDS: diphenhydrAMINE HCL 50 MG CAPSULE PO PRN (22:20)
[2019-09-22] MEDS ORDERED: chlordiazePOXIDE HCL 10 MG CAPSULE PO PRN
[2019-09-22] MEDS: ALBUTEROL SO4 8 GM HFA INHALER IH PRN ×4 (05:30→21:34)
[2019-09-22] MEDS: GABAPENTIN 300 MG CAPSULE (FP) PO SCH ×3 (05:31→21:31)
[2019-09-22] MEDS: chlordiazePOXIDE HCL 10 MG CAPSULE PO SCH ×3 (05:31→21:34)
[2019-09-22] MEDS: metFORMIN HCL 500 MG TABLET (FP) PO SCH ×2 (06:27→16:29)
--- NOTE | 2019-09-22 09:09 | PN ---
[facility] CIWA - CIWA Score Nausea/Vomitin-No Nausea/No Vomiting Muscle Tremors: 1-None Visible, but [place] Anxiety: 2 Agitation: 2 Paroxysmal Sweats: No Perspiration Orientation: 0-Oriented Tacttile Disturbances: 1-Very Mild Itch/Numbness Auditory Disturbances: 0-None Visual Disturbances: 0-None Headache: 1-Very Mild CIWA-Ar Total Score: 7 BHS Progress Note (SOAP) Subjective: alert,irritable,anxious,interrupted sleep Objective: 09/22/19 09:08 Vital Signs Temperature 97.9 F 09/22/19 06:45 Pulse Rate 75 09/22/19 06:45 Respiratory Rate 18 09/22/19 06:45 Blood Pressure 141/81 09/22/19 06:45 O2 Sat by Pulse Oximetry (%) 09/22/19 09:08 [email or web address] Assessment: 09/22/19 09:09 withdrawal symptom Plan: continue detox,discharge in am
[2019-09-22] MEDS ORDERED: METHADONE (DETOX) 10 MG, METHADONE (DETOX) 5 MG PO ONE (10:00)
[2019-09-22] MEDS: TIMOLOL MALEATE 0.5% GFS OPHTHALMIC SOLN 5 ML BOTTLE OU SCH ×2 (10:27→21:31)
[2019-09-22] MEDS: BRIMONIDINE TARTRATE 0.1% OPHTHALMIC 5 ML BOTTLE OU SCH ×2 (10:27→21:33)
[2019-09-22] MEDS: NICOTINE 7 MG/24 HOURS TOPICAL PATCH TD SCH (10:28)
[2019-09-22] MEDS: ASPIRIN 81 MG CHEWABLE TABLETS PO SCH (10:28)
[2019-09-22] MEDS: PRENATAL VITAMINS W/ FOLIC ACID TABLET (FP) PO SCH (10:28)
[2019-09-22] MEDS: THIAMINE HCL 100 MG TABLET (FP) PO SCH (21:31)
[2019-09-22] MEDS: ATORVASTATIN CA 20 MG TABLET (FP) PO SCH (21:31)
[2019-09-22] MEDS: diphenhydrAMINE HCL 50 MG CAPSULE PO PRN (21:33)
[2019-09-23] MEDS ORDERED: chlordiazePOXIDE HCL 10 MG CAPSULE PO ONE (05:00)
[2019-09-23] MEDS: GABAPENTIN 300 MG CAPSULE (FP) PO SCH (05:50)
[2019-09-23] MEDS: ALBUTEROL SO4 8 GM HFA INHALER IH PRN (05:56)
[2019-09-23] MEDS ORDERED: TIMOLOL MALEATE 0.5% GFS OPHTHALMIC SOLN 5 ML BOTTLE OU SCH (06:00)
[2019-09-23] MEDS ORDERED: BRIMONIDINE TARTRATE 0.1% OPHTHALMIC 5 ML BOTTLE OU SCH (06:00)
[2019-09-23] MEDS: metFORMIN HCL 500 MG TABLET (FP) PO SCH (06:20)
[2019-09-23] MEDS: PRENATAL VITAMINS W/ FOLIC ACID TABLET (FP) PO SCH ×2 (08:35→09:06)
[2019-09-23] MEDS: ASPIRIN 81 MG CHEWABLE TABLETS PO SCH ×2 (08:35→09:06)
--- NOTE | 2019-09-23 08:39 | DS ---
[facility] Detox Discharge Summary Admission Date: 09/19/19 Discharge Date: 09/23/19 - History Present History: Alcohol Dependence, Cannabis Dependence, Opioid Dependence - Physical Exam Results Vital Signs: Vital Signs Temperature 98.1 F 09/23/19 06:56 Pulse Rate 91 H 09/23/19 06:56 Respiratory Rate 18 09/23/19 06:56 Blood Pressure 113/74 09/23/19 06:56 O2 Sat by Pulse Oximetry (%) Pertinent Admission Physical Exam Findings: Vital Signs Temperature 98.1 F 09/23/19 06:56 Pulse Rate 91 H 09/23/19 06:56 Respiratory Rate 18 09/23/19 06:56 Blood Pressure 113/74 09/23/19 06:56 O2 Sat by Pulse Oximetry (%) Laboratory Tests 09/19/19 09/19/19 09/19/19 12:15 12:15 12:15 WBC 4.9 RBC 3.57 L Hgb 13.0 Hct 38.9 MCV 109.0 H MCH 36.5 H MCHC 33.5 RDW 14.0 Plt Count 219 MPV 9.1 Sodium 146 H Potassium 3.6 Chloride 112 H Carbon Dioxide 28 Anion Gap 6 L BUN 11.3 Creatinine 0.9 Est GFR (CKD-EPI)AfAm 105.72 Est GFR (CKD-EPI)NonAf 91.22 POC Glucometer Random Glucose 102 Calcium 9.3 Total Bilirubin 0.4 AST 16 ALT 33 Alkaline Phosphatase 72 Total Protein 7.0 Albumin 3.6 RPR Titer Nonreactive 09/20/19 09/20/19 09/21/19 05:31 16:51 05:47 WBC RBC Hgb Hct MCV MCH MCHC RDW Plt Count MPV Sodium Potassium Chloride Carbon Dioxide Anion Gap BUN Creatinine Est GFR (CKD-EPI)AfAm Est GFR (CKD-EPI)NonAf POC Glucometer 114 135 135 Random Glucose Calcium Total Bilirubin AST ALT Alkaline Phosphatase Total Protein Albumin RPR Titer 09/21/19 09/22/19 09/22/19 16:31 05:29 16:26 WBC RBC Hgb Hct MCV MCH MCHC RDW Plt Count MPV Sodium Potassium Chloride Carbon Dioxide Anion Gap BUN Creatinine Est GFR (CKD-EPI)AfAm Est GFR (CKD-EPI)NonAf POC Glucometer 133 123 111 Random Glucose Calcium Total Bilirubin AST ALT Alkaline Phosphatase Total Protein Albumin RPR Titer 09/23/19 05:48 WBC RBC Hgb Hct MCV MCH MCHC RDW Plt Count MPV Sodium Potassium Chloride Carbon Dioxide Anion Gap BUN Creatinine Est GFR (CKD-EPI)AfAm Est GFR (CKD-EPI)NonAf POC Glucometer 167 Random Glucose Calcium Total Bilirubin AST ALT Alkaline Phosphatase Total Protein Albumin RPR Titer aaox3 ambulating no acute distress - Treatment Hospital Course: Detox Protocol Followed, Detoxed Safely, Responded well, Discharged Condition Good, Rehab Referral Accepted Patient has Accepted a Rehab Referral to: [facility] - Medication Discharge Medications: Ambulatory Orders Aspirin [ASA -] 81 mg PO DAILY 05/18/18 Simvastatin [Zocor -] 40 mg PO HS 05/18/18 Brimonidine Tartrate [Alphagan P 0.1% -] 1 drop OU BID #1 bottle 08/03/18 Metformin HCl [Glucophage] 1,000 mg PO BID #60 tablet 08/03/18 Timolol Maleate 0.5% Gfs [Timoptic Xe 0.5%] 1 drop OU BID #1 bottle 08/03/18 Thiamine HCl [Vitamin B-1] 100 mg PO DAILY 07/31/19 Albuterol Sulfate Inhaler - [Ventolin Hfa Inhaler -] 2 inh PO Q4H PRN 08/27/19 Gabapentin [Neurontin -] 300 mg PO Q8H 08/27/19 - Diagnosis (1) Alcohol dependence with uncomplicated withdrawal Current Visit: Yes Status: Chronic (2) Opioid dependence with withdrawal Current Visit: Yes Status: Chronic (3) Asthma Current Visit: Yes Status: Chronic Qualifiers: Asthma severity: mild Asthma persistence: intermittent Asthma complication type: with status asthmaticus Qualified Code(s): J45.22 - Mild intermittent asthma with status asthmaticus (4) Cannabis dependence Current Visit: Yes Status: Chronic (5) Cocaine dependence Current Visit: Yes Status: Chronic Qualifiers: Substance use status: uncomplicated Qualified Code(s): F14.20 - Cocaine dependence, uncomplicated (6) DM2 (diabetes mellitus, type 2) Current Visit: Yes Status: Chronic Qualifiers: Diabetes mellitus alf insulin use: without parts counterman use Diabetes mellitus complication status: with other specified complication Qualified Code (s): E11.69 - Type 2 diabetes mellitus with other specified complication (7) [place] (hard of hearing) Current Visit: Yes Status: Chronic Qualifiers: Hearing loss type: unspecified Laterality: unspecified laterality Qualified Code(s): H91.90 - Unspecified hearing loss, unspecified ear (8) Hyperlipidemia Current Visit: Yes Status: Chronic Qualifiers: Hyperlipidemia type: unspecified Qualified Code(s): E78.5 - Hyperlipidemia , unspecified (9) Hypertension Current Visit: Yes Status: Chronic Qualifiers: Hypertension type: unspecified Qualified Code(s): I10 - Essential (primary ) hypertension (10) Insomnia Current Visit: Yes Status: Chronic (11) Nicotine dependence Current Visit: Yes Status: Chronic Qualifiers: Nicotine product type: cigarettes Substance use status: uncomplicated Qualified Code(s): F17.210 - Nicotine dependence, cigarettes, uncomplicated (12) Substance induced mood disorder Current Visit: Yes Status: Chronic (13) Substance-induced sleep disorder Current Visit: No Status: Acute (14) Diabetic neuropathy Current Visit: No Status: Chronic Qualifiers: Diabetes mellitus type: type 2 Diabetes mellitus complication detail: diabetic polyneuropathy Qualified Code(s): E11.42 - Type 2 diabetes mellitus with diabetic polyneuropathy (15) Glaucoma Current Visit: No Status: Chronic Qualifiers: Glaucoma type: unspecified Laterality: bilateral Qualified Code(s): H40.9 - Unspecified glaucoma - AMA Did Patient Leave Against Medical Advice: No
[2019-09-23 09:24] VITALS: BP 131/77; PULSE 84; TEMP 96.9
[2019-09-23] MEDS ORDERED: METHADONE HCL 10 MG TABLET (FOR DETOX USE ONLY) PO ONE (10:00)
[2019-09-24] MEDS ORDERED: METHADONE HCL 5 MG TABLET (FOR DETOX USE ONLY) PO ONE (06:00)
== END 2019-09-23 09:27 | disposition home or self-care (01) | DRG 773 ==
LOC: YASAS 09:37 → Y6N 11:27
PROVIDERS: ADMIT Allergy & Immunology; ATTEND Allergy & Immunology
PROC: HZ2ZZZZ Detoxification Services for Substance Abuse Treatment (ICD-10-PCS; principal; 2019-09-19)
DX: F11.23 Opioid dependence with withdrawal (principal); F10.230 Alcohol dependence with withdrawal, uncomplicated; F14.20 Cocaine dependence, uncomplicated; F12.20 Cannabis dependence, uncomplicated; F17.210 Nicotine dependence, cigarettes, uncomplicated; F19.24 Other psychoactive substance dependence with psychoactive substance-induced mood disorder; F19.282 Other psychoactive substance dependence with psychoactive substance-induced sleep disorder; I10 Essential (primary) hypertension; E78.5 Hyperlipidemia, unspecified; E11.42 Type 2 diabetes mellitus with diabetic polyneuropathy; E11.69 Type 2 diabetes mellitus with other specified complication; J45.22 Mild intermittent asthma with status asthmaticus; H91.90 Unspecified hearing loss, unspecified ear; Z59.0 Homelessness
CPT/HCPCS: 36415; 80053; 82962; 85027; 86593